=== PATIENT | male | born 1935 | race Caucasian/White ===

== ENCOUNTER 2017-04-26 16:10 | Inpatient (IN) | payer MEDICARE ==
[~2017-04-26] VITALS: Ht 182.9 cm; Wt 66.7 kg
[2017-04-26] VITALS (13 sets, daily range): BP systolic 81–183; BP diastolic 51–85
[2017-04-26] MEDS ORDERED: ETOMIDATE 2 MG/ML VIAL IV ONE (16:12)
[2017-04-26] MEDS ORDERED: ROCURONIUM BROMIDE 50 MG/5 ML IV ONE (16:12)
--- NOTE | 2017-04-26 16:20 | NUR ---
INUBATED BY MD FRASER- 7F 23 AT THE LIP
--- NOTE | 2017-04-26 16:42 | NUR ---
[facility] PATIENT RECEIVED ALTERED, BREATHING SUPPORTED BY AMBU BAG. SKIN IS WARM TO TOUCH, NON DIAPHORETIC.MD FRASER MADE AWARE
--- NOTE | 2017-04-26 16:53 | NUR ---
VENT-- AC 18 TV 500 FIO2 100 PEEP 5
--- NOTE | 2017-04-26 16:53 | NUR ---
(16 ) FR brooks catheter inserted per sterile protocal. Immediate output (200 )ML of urine, color (YELLOW ), clarity (CLEAR )
--- NOTE | 2017-04-26 16:53 | NUR ---
( 16) FR NG tube inserted through the ( L) nares correct positioning varified by aspiration, auscultation and x-ray. pt breathing normally and speaking in full sentences immediately after insertion.
[2017-04-26 17:41] LABS: HEMATOCRIT 29 % (39-51); HEMOGLOBIN 9.9 g/dL (13.5-17.5); MEAN CORPUSCULAR HEMOGLOBIN 30 PG (26.0-33.0); MEAN CORPUSCULAR HGB CONC 34 g/dl (31.0-36.0); MEAN CORPUSCULAR VOLUME 89 fL (80-96); RDW COEFFICIENT OF VARIATION 16.1 (11.5-15.0); WHITE BLOOD COUNT (AUTO) 8.7 K/uL (4.3-11.0)
[2017-04-26 17:42] LABS: BASOPHILS # (AUTO) 0.1 /CMM (0.0-0.2); BASOPHILS % (AUTO) 0.7 % (0.0-2.0); EOSINOPHILS # (AUTO) 0.1 /CMM (0.0-0.7); EOSINOPHILS % (AUTO) 1.5 % (0.0-6.0); LYMPHOCYTES # (AUTO) 1.2 /CMM (0.8-4.8); LYMPHOCYTES % (AUTO) 13.4 % (20.0-44.0); MONOCYTES # (AUTO) 0.5 /CMM (0.1-1.30); MONOCYTES % (AUTO) 5.5 % (2.0-12.0); NEUTROPHILS # (AUTO) 6.8 /CMM (1.8-8.9); NEUTROPHILS % (AUTO) 78.9 % (43.0-81.0); PLATELET COUNT (AUTO) 179 /CMM (150-450)
[2017-04-26 17:51] LABS: ABG BASE EXCESS 0.1 mmol/L; ABG OXYGEN SATURATION 98.7 % (92.0-98.5); ABG PCO2 33.7 mmHg (35.0-45.0); ABG PH 7.463 (7.350-7.450); AaDO2 128.3 mmHg; COHb 0.3 % (0.5-1.5); MetHb 0.5 % (0.0-1.5); O2Hb 97.9 % (94.0-97.0); PEEP,BG 0 cm H2O; SITE, ABG Left Radial; VT, ABG 500 mL
[2017-04-26 17:57] LABS: INR 1.34 (0.87-1.13); PROTHROMBIN TIME 14.1 SECS (9.5-12.7)
[2017-04-26] MEDS ORDERED: IV NS 0.9% 1,000 ML BAG IV ONE ×2 (18:00→19:00)
[2017-04-26 18:09] LABS: TROPONIN I 0.093 ng/mL (0.00-0.056)
--- NOTE | 2017-04-26 18:19 | NUR ---
ICU 262
[2017-04-26 18:23] LABS: CARBON DIOXIDE 25 mmol/L (21-32); CHLORIDE 114 mmol/L (98-107); CREATININE 2.8 mg/dL (0.6-1.3); GLUCOSE 137 mg/dL (74-106); POTASSIUM 3.9 mmol/L (3.5-5.1); SODIUM SERUM 153 mmol/L (136-145); UREA NITROGEN, BLOOD 65 mg/dL (7-18)
[2017-04-26 18:35] LABS: ALANINE AMINOTRANSFERASE 16 U/L (12-78); ALBUMIN 2.7 g/dL (3.4-5.0); ALKALINE PHOSPHATASE 66 U/L (46-116); ASPARTATE AMINOTRANSFERASE 23 U/L (15-37); BILIRUBIN,DIRECT 0.1 mg/dL (0.0-0.2); BILIRUBIN,TOTAL 0.6 mg/dL (0.2-1.0)
--- NOTE | 2017-04-26 18:50 | NUR ---
PANEL ON-CALL PAGED
[2017-04-26] MEDS ORDERED: PIPERACILLIN /TAZOBACTAM 3.375 G in IV D5W 50 ML IV ONE (19:00)
[2017-04-26] MEDS ORDERED: VANCOMYCIN 1 GM in IV D5W 250 ML IV ONE (19:00)
[2017-04-26] MEDS ORDERED: PROPOFOL 100 ML IV PRN (19:00)
--- NOTE | 2017-04-26 19:00 | NUR ---
PAGED SANDRA CUELLAR DNP FOR PANEL ADMISSION
--- NOTE | 2017-04-26 19:03 | NUR ---
SHEA AT BEDSIDE FOR PICC INSERTION
--- NOTE | 2017-04-26 19:13 | NUR ---
PT NOW GETTING PICC LINE, ER WILL CALL WHEN READY FOR CT SCAN.
--- NOTE | 2017-04-26 19:22 | NUR ---
REPAGED SANDRA CUELLAR DNP FOR PANEL ADMISSION
--- NOTE | 2017-04-26 19:32 | NUR ---
SHEA STILL INSETING CASS
--- NOTE | 2017-04-26 19:46 | NUR ---
REPAGED SANDRA CUELLAR DNP FOR PANEL ADMISSION
--- NOTE | 2017-04-26 20:34 | NUR ---
REPORT GIVEN SHANTE VALERIO FOR CONTINUITY OF CARE.
[2017-04-26] MEDS ORDERED: ASPIRIN 300 MG/SUPP.RECT RC ONE (20:51)
[2017-04-26] MEDS: ASPIRIN 300 MG/SUPP.RECT RC SCH (20:55)
--- NOTE | 2017-04-26 21:09 | NUR ---
PATIENT WAS TRASNPORTED TO ICU. ALL DUE MEDICATIONS GIVEN. SEPSIS RE ASSESSMENT DONE. PICCLINE TRIPLE LUMEN INTACT ON ANGELO. ALL IV ACCESS INTACT. PT REMAINS INTUBATED. VSS
--- NOTE | 2017-04-26 21:30 | NUR ---
HAND CANDLE MOLDER INITIAL NOTE RECEIVED REPORT FROM HUE VALERIO FROM ER. PT TRANSPORTED TO UNIT BY SAVANNA VALERIO. PT IN BED. INTUBATED. PROPOFOL ON STAND BY. RESTRAINED FOR SAFETY, BILATERAL SOFT WRIST RESTRAINTS. LUNG SOUNDS CLEAR. BOWEL SOUNDS PRESENT. MCGUIRE INTACT AND DRAINING CLEAR YELLOW URINE. PICTURES TAKEN OF SKIN ISSUES AND DOCUMENTED. RIGHT UPPER ARM PICC PATENT AND INTACT, PROPOFOL STARTED DUE TO PATIENT BECOMING RESTLESS. RIGHT FA IV INTACT. LEFT AC IV INTACT. BED IN LOW LOCKED POSITION. PATIENT REPOSITIONED FOR COMFORT. WILL CONTINUE TO MONITOR.
[2017-04-26] MEDS: PROPOFOL 100 ML IV PRN (22:08)
--- NOTE | 2017-04-26 23:54 | NUR ---
PT RCVD ON MECH VENT WITH NOTED SETTINGS AND ORALLY INTUBATED WITH 7.5 ETT SECURE AT 23 CM @ THE LIP LINE . SUCTION MODERATE AMOUNT OF WHITE THICK SECRETIONS. VENT ALARM CHECKED AND AUDIBLE . VENT PLUGGED INTO RED OUTLET, AMBU BAG AT BEDSIDE. WILL CONTINUE TO MONITOR THE PATIENT.
[2017-04-27] VITALS (115 sets, daily range): BP systolic 58–196; BP diastolic 39–89
[2017-04-27] MEDS ORDERED: MORPHINE SULFATE INJ 2 MG/ML DISP.SYRIN IV PRN (01:00)
[2017-04-27] MEDS ORDERED: ENOXAPARIN SODIUM 40 MG/0.4 ML DISP.SYRIN SQ SCH ×2 (01:00→21:00)
[2017-04-27] MEDS ORDERED: ONDANSETRON HCL/PF 4 MG/2 ML VIAL IVP PRN (01:00)
[2017-04-27] MEDS: IV 1/2NS 1000 ML 1,000 ML IV PRN ×2 (01:05→12:39)
[2017-04-27] MEDS ORDERED: ENOXAPARIN SODIUM 40 MG/0.4 ML DISP.SYRIN SQ ONE (01:13)
--- NOTE | 2017-04-27 03:20 | NUR ---
BITUMINOUS DISTRIBUTOR OPERATOR DR CUELLAR ENTERED AN ABG FOR 0500, ORDER WAS CLARIFIED. ABG TO BE DONE AT 0800. WILL ENDORSE TO NEXT SHIFT TO CARRY OUT ORDER.
[2017-04-27] MEDS ORDERED: PROPOFOL 100 ML IV ONE (05:28)
[2017-04-27] MEDS: PROPOFOL 100 ML IV PRN ×3 (06:07→18:38)
--- NOTE | 2017-04-27 07:39 | NUR ---
INITIAL COMMERCIAL SALES SPECIALIST NOTE RCVD PT SEDATED, INTUBATED, ETT 7.5 25 AT LIP LINE SHOWING NO S/O DISTRESS/PAIN. TOLERATING ORDERED VENT SETTINGS WELL. LEFT NG TUBE CLAMPED, PLACEMENT VERIFIED BY AUSCULTATION/ASPIRATION. NO RESIDUAL OBTAINED. MCGUIRE DRAINING YELLOW URINE. BILATERAL WRISTS RESTRAINST IN PLACE. CIRCULATION CHECKS PERFORMED. IV SITES C/D/I/PATENT. NO S/O INFILTRATION/PHLEBITIS OBSERVED UPON FLUSHING. IVF INFUSING. WILL CONTINUE TO MONITOR PT FOR SAFETY AND COMFORT. CALL LIGHT WITHIN REACH. BED IN LOW AND LOCKED POSITION.
[2017-04-27] MEDS: PANTOPRAZOLE 40 MG VIAL IV SCH (09:13)
[2017-04-27 09:14] LABS: ABG BASE EXCESS -0.3 mmol/L; ABG OXYGEN SATURATION 98.1 % (92.0-98.5); ABG PCO2 33.3 mmHg (35.0-45.0); AaDO2 75.9 mmHg; COHb 0.3 % (0.5-1.5); MetHb 0.7 % (0.0-1.5); O2Hb 97.1 % (94.0-97.0); PEEP,BG 0 cm H2O; SITE, ABG Right Radial; VT, ABG 500 mL
[2017-04-27] MEDS: Z GUARD REMEDY 2 OZ OINT TP PRN (09:14)
[2017-04-27] MEDS: ASPIRIN 300 MG/SUPP.RECT RC SCH (09:14)
--- NOTE | 2017-04-27 10:18 | NUR ---
LENS GRINDER NOTE SEDATION VACATION IMPLEMENTED. PT ABLE TO FOLLOW SOME COMMANDS. PT'S BP ELEVATED WILL CONTINUE TO MONITOR.
[2017-04-27] MEDS: MORPHINE SULFATE INJ 4 MG/ML DISP.SYRIN IV PRN (11:08)
[2017-04-27] MEDS: IPRATROPIUM NEB FS 0.5 MG/2.5 ML AMPUL.NEB NEB SCH ×4 (11:14→23:32)
--- NOTE | 2017-04-27 12:20 | NUR ---
BEADER TENDER NOTE PT'S BP TRENDING DOWN, MORPHINE GIVEN FOR PAIN.
--- NOTE | 2017-04-27 13:21 | NUR ---
POULTRY PROCESSOR NOTE RCVD CALL FROM RADIOLOGIST STATING THAT PT HAS PARTIAL THROMBUS ON LLE. PT'S SBP TRENDING DOWN 80s DR. WARE INFORMED OF ABOVE. AWAITING ORDERS.
--- NOTE | 2017-04-27 15:30 | NUR ---
MITERING MACHINE OPERATOR NOTE PT CONVERTED TO SR. WILL CONTINUE TO MONITOR.
--- NOTE | 2017-04-27 17:05 | NUR ---
CROCHETER NOTE PT'S AT BEDSIDE, UPDATED ON PT'S CONDITION.
--- NOTE | 2017-04-27 18:08 | NUR ---
RT NOTE: Received patient orally intubated with 7.5 ETT secured at 23 cm inner lip line on mechanical vent. Alarms verified and audible. Suctioned and lavaged small of clear secretions. Bilateral BS noted. Vent plugged into red outlet. Ambu bag at [facility].
--- NOTE | 2017-04-27 18:58 | NUR ---
ENDING LATIN AMERICAN STUDIES PROFESSOR NOTE PT REMAINS STABLE, SHOWING NO S/O DISTRESS. TOLERATING VENT SETTINGS SR ON TELE. MCGUIRE DRAINING YELLOW URINE. NG TUBE CLAMPED. IV SITES C/D/I/PATENT. NO S/O INFILTRATION/PHLEBITIS OBSERVED. IVF INFUSING. PT'S CARE WILL BE ENDORSED TO AUTOMOTIVE FUEL INJECTION SERVICER RN FOR CONTINUITY OF CARE. BED IN LOW AND LOCKED POSITION.
--- NOTE | 2017-04-27 19:30 | NUR ---
TELEGRAPH OFFICE ROUTE AIDE INITIAL NOTE RECEIVED REPORT FROM MOLLY VALERIO. PT IN BED, INTUBATED AND SEDATED. PT LUNG SOUNDS DIMINISHED, ON VENTILATOR TOLERATING CURRENT VENT SETTINGS. BOWEL SOUNDS PRESENT. MCGUIRE INTACT AND DRAINING YELLOW URINE. REPOSITIONED FOR COMFORT. IV PATENT AND INTACT. REPOSITIONED FOR COMFORT. BED IN LOW LOCKED POSITION. WILL CONTINUE TO MONITOR.
[2017-04-28] VITALS (57 sets, daily range): BP systolic 112–195; BP diastolic 55–113
[2017-04-28] MEDS: PROPOFOL 100 ML IV PRN ×4 (00:55→22:04)
[2017-04-28] MEDS: IV 1/2NS 1000 ML 1,000 ML IV PRN ×2 (00:59→13:57)
[2017-04-28] MEDS: IPRATROPIUM NEB FS 0.5 MG/2.5 ML AMPUL.NEB NEB SCH ×6 (03:10→22:47)
[2017-04-28 05:01] LABS: BASOPHILS % (AUTO) 0.3 % (0.0-2.0); EOSINOPHILS # (AUTO) 0.3 /CMM (0.0-0.7); EOSINOPHILS % (AUTO) 2.8 % (0.0-6.0); HEMATOCRIT 28 % (39-51); HEMOGLOBIN 9.3 g/dL (13.5-17.5); LYMPHOCYTES # (AUTO) 1.1 /CMM (0.8-4.8); LYMPHOCYTES % (AUTO) 9.7 % (20.0-44.0); MEAN CORPUSCULAR HEMOGLOBIN 30 PG (26.0-33.0); MEAN CORPUSCULAR HGB CONC 33 g/dl (31.0-36.0); MEAN CORPUSCULAR VOLUME 89 fL (80-96); MONOCYTES % (AUTO) 8.9 % (2.0-12.0); NEUTROPHILS # (AUTO) 9.1 /CMM (1.8-8.9); NEUTROPHILS % (AUTO) 78.3 % (43.0-81.0); PLATELET COUNT (AUTO) 174 /CMM (150-450); RDW COEFFICIENT OF VARIATION 17.1 (11.5-15.0); RED BLOOD CELL COUNT(AUTO) 3.13 MIL/uL (4.5-6.0); WHITE BLOOD COUNT (AUTO) 11.7 K/uL (4.3-11.0)
[2017-04-28 05:09] LABS: ALANINE AMINOTRANSFERASE 14 U/L (12-78); ALBUMIN 2.5 g/dL (3.4-5.0); ALKALINE PHOSPHATASE 63 U/L (46-116); ASPARTATE AMINOTRANSFERASE 25 U/L (15-37); CALCIUM, SERUM 8.8 mg/dL (8.5-10.1); CARBON DIOXIDE 25 mmol/L (21-32); CHLORIDE 116 mmol/L (98-107); CREATININE 2.2 mg/dL (0.6-1.3); GLUCOSE 65 mg/dL (74-106); MAGNESIUM 1.9 mg/dL (1.8-2.4); PHOSPHORUS 3.3 mg/dL (2.5-4.9); POTASSIUM 3.3 mmol/L (3.5-5.1); SODIUM SERUM 152 mmol/L (136-145); TOTAL PROTEIN, SERUM 5.7 g/dL (6.4-8.2); UREA NITROGEN, BLOOD 52 mg/dL (7-18)
[2017-04-28 05:27] LABS: BILIRUBIN,TOTAL 0.4 mg/dL (0.2-1.0)
[2017-04-28 05:34] LABS: CHOLESTEROL 134 mg/dL (<200); HDL CHOLESTEROL 38 mg/dL (40-60); LDL 80 mg/dL (0-99); THYROID STIMULATING HORMONE 1.068 uIU/mL (0.358-3.74); TRIGLYCERIDES 82 mg/dL (30-150)
[2017-04-28] MEDS: RENAL NOVASOURCE 1,000 ML BOTTLE GT PRN (06:28)
--- NOTE | 2017-04-28 07:15 | NUR ---
EQUIPMENT VALIDATION SPECIALIST NOTES RECEIVED PATIENT SEDATED , NOT IN ACUTE DISTRESS , RESPIRATION EVEN AND UNLABORED WITH SPO2 OF 100% VIA MECHANICAL VENTILATOR SETTING ORDERED , ETT 7.[address] , SR WITH BBB 78 WITH OCCASIONAL SPIKING OF AICD , FC DRAINING WELL VIA GRAVITY WITH CLEAR YELLOW URINE , ON KCI MATTRESS , L NARE NGT PATENT AND INTACT WITH NGT FEEDING OF NOVASOURCE @ 20ML/HR WITH NO RESIDUALS NOTED TITRATE ACCORDINGLY , IV OF L AC # 20 AND ANGELO PICC LINE PATENT AND INTACT WITH 1/2 NS @ 75ML/HR , DIPRIVAN @ 30MCG/MIN , ALL NEEDS ATTENDED , BED ON LOW AND LOCKED POSITION , SIDE RAILS X2 , CALL LIGHT WITHIN REACH , HOB @ 45 , WILL CONTINUE TO MONITOR
[2017-04-28] MEDS: POTASSIUM CL. PREMIX PERIPHER. 50 ML IV SCH ×2 (08:22→09:16)
[2017-04-28] MEDS: Z GUARD REMEDY 2 OZ OINT TP PRN (08:22)
[2017-04-28] MEDS: PANTOPRAZOLE 40 MG VIAL IV SCH (08:22)
[2017-04-28] MEDS: ASPIRIN 300 MG/SUPP.RECT RC SCH (08:22)
--- NOTE | 2017-04-28 09:00 | NUR ---
CRACKING AND FANNING MACHINE OPERATOR NOTES OFF MELIZAVAN FOR SEDATION VACATION , WILL CONTINUE TO MONITOR
--- NOTE | 2017-04-28 09:15 | NUR ---
PASTORAL COUNSELOR NOTES ADVANCE NGT RECOMMENDED BY RADIOLOGIST AND CHEST XRAY REPORT , NGT PLACEMENT VERIFIED NOTED IWTH GURGLING SOUND X 4 QUADRANT OF THE STOMACH , WILL CONTINUE TO MONITOR
[2017-04-28] MEDS: NITROGLYCERIN 30 GM TUBE TP SCH ×2 (09:18→22:06)
--- NOTE | 2017-04-28 09:30 | NUR ---
ESCORT PATIENTS NOTES DIPRIVAN RESTARTED @ 30MCG/MIN DUE TO BP OF 179/83 , HR OF 120-130'S , RESPONSIVE TO VERBAL STIMULI , OPENS EYES , FOLLOWS SIMPLE COMMANDS , WILL CONTINUE TO MONITOR .
[2017-04-28 09:44] LABS: ABG OXYGEN SATURATION 98.6 % (92.0-98.5); ABG PCO2 29.5 mmHg (35.0-45.0); ABG PH 7.452 (7.350-7.450); ABG PO2 265.2 mmHg (75.0-100.0); COHb 0.3 % (0.5-1.5); MetHb 0.6 % (0.0-1.5); O2Hb 97.7 % (94.0-97.0); SITE, ABG Right Radial; VENT MODE, BG AC 16 500 40% +0
--- NOTE | 2017-04-28 11:28 | NUR ---
CENTRAL AISLE CASHIER NOTES SPOKE WITH DR MONTALVO , NOTIFIED PT ABG , CHEST XRAY, CURRENT VENT SETTINGS , VERIFIED IF HE WANTS TO INCREASE PEEP FROM 0 -5 BP IS ON 150-160'S PT ON NITRO PASTE ALREADY , PER MD CHANGE PEEP TO 5 , ORDERS CARRIED OUT SEDATION VACATION STARTED @ 0900 PT PLACED BACK ON DIPRIVAN DUE TO ELEVATED BP AND HR , PT OPENS EYES , ABLE TO FOLLOWS SIMPLE COMMANDS ,
--- NOTE | 2017-04-28 12:28 | NUR ---
CORPORATE ADMINISTRATIVE ASSISTANT NOTES MEDICATION RECON REVIEWED , NO MEDICATION AVAILABLE , CALLED [facility] , SPOKE WITH RN , FOLLOW UP IF THEY CAN FAX HOME MEDICATION OF THE PT ,
[2017-04-28] MEDS ORDERED: HYDR-4077 PO (12:40)
[2017-04-28] MEDS ORDERED: TEMA7.5C PO (12:40)
[2017-04-28] MEDS ORDERED: BISA10SU8 RC (12:40)
[2017-04-28] MEDS ORDERED: ACET-868 PO (12:40)
[2017-04-28] MEDS ORDERED: PANT40TA2 PO (12:40)
[2017-04-28] MEDS ORDERED: MAGN400O6 PO (12:40)
[2017-04-28] MEDS ORDERED: LORA1TAB PO (12:40)
[2017-04-28] MEDS ORDERED: AMLO5TAB4 PO (12:40)
[2017-04-28] MEDS ORDERED: CLON0.1T PO (12:40)
[2017-04-28] MEDS ORDERED: DABI75CA3 PO (12:40)
[2017-04-28] MEDS ORDERED: FERR-58 PO (12:40)
[2017-04-28] MEDS ORDERED: CARV12.5 PO (12:40)
[2017-04-28] MEDS ORDERED: FLUT16SP16 NS (12:40)
[2017-04-28] MEDS ORDERED: RISP0.253 PO (12:40)
[2017-04-28] MEDS ORDERED: NA P133E RC (12:40)
[2017-04-28] MEDS ORDERED: VALP250C PO (12:40)
[2017-04-28] MEDS ORDERED: MONT10TA22 PO (12:40)
[2017-04-28] MEDS ORDERED: ALBU2.5V13 IH (12:40)
[2017-04-28] MEDS ORDERED: IPRA0.2S9 IH (12:40)
[2017-04-28] MEDS ORDERED: DOCU-25 PO (12:40)
[2017-04-28] MEDS ORDERED: ATOR10TA PO (12:40)
[2017-04-28] MEDS ORDERED: VENL150C2 PO (12:40)
[2017-04-28] MEDS ORDERED: ALLO100T PO (12:41)
[2017-04-28] MEDS ORDERED: CHOL100044 PO (12:41)
[2017-04-28] MEDS ORDERED: ASCO500T9 PO (12:41)
--- NOTE | 2017-04-28 13:03 | NUR ---
MANAGER PERSONNEL SELECTION NOTES NOTIFIED DR WARE THAT HOME MEDICATION LIST FROM [place] WAS OBTAINED . MED RECON NURSE UPDATED MEDICATION RECONCILIATION LIST ,
[2017-04-28] MEDS ORDERED: ENOXAPARIN SODIUM 80 MG/0.8 ML DISP.SYRIN SQ SCH (16:01)
--- NOTE | 2017-04-28 18:13 | NUR ---
CALIBRATOR BAROMETERS NOTES SEEN AND EVALUATED BY DR IBARRA , DISCUSSED LABS , US DVT RESULT , PT ON LOVENOX 30MG Q24 AND 70MG Q12 , MD AWARE , VERIFIED WITH MD IF SHE WANTS DVT PUMPS , DVT PUMPS WERE HELD , PER MD BANKS IT
--- NOTE | 2017-04-28 19:40 | NUR ---
ICU/PASTEURISER OPERATOR REPORT RECEIVED FROM DAY NURSE, PT IS ORALLY INTUBATED WITH SEDATION 30MCG DIPRIVAN, ALONG WITH BILATERAL RESTRAINS. PT IS TOLERATING CURRENT VENT SETTINGS WITH SATURATION AT 100%. PT HAS PACEMAKER WHICH IS CAPTURING AND SPIKING AT 80'S. PT HAS A N/G TUBE WITH NOVASOURCE AT 40ML/HR TOLERATING THIS WELL, RESIDUALS ARE 10 ML. PT HAS MCGUIRE CATH DRAINING YELLOW URINE. THERE ARE SKIN ISSUES THAT ARE ADDRESSED ON THE FLOW SHEET. PT WAS TURNED AND REPOSITIONED FOR COMFORT AND CARE. WILL CONTINUE TO MONITOR THIS PT.
--- NOTE | 2017-04-28 22:10 | NUR ---
ICU/BLEACHER LARD PT'S CALLED ASKED ABOUT ANY CHANGES, GAVE HER UPDATE. SAID TOMORROW AND SHE'LL BE IN TO SEE HER .
[2017-04-29] VITALS (41 sets, daily range): BP systolic 83–169; BP diastolic 47–91
--- NOTE | 2017-04-29 02:10 | NUR ---
ICU/HEEL VARNISHER PT WAS GIVEN AM CARE ALONG WITH ORAL CARE. PT TOLERATED THIS WELL, SATURATION REMAINS AT 100% ON CURRENT VENT SETTINGS. PT WAS TURNED AND REPOSITIONED FOR COMFORT AND CARE. WILL CONTINUE TO MONITOR THIS PT.
[2017-04-29] MEDS: IV 1/2NS 1000 ML 1,000 ML IV PRN ×2 (02:16→21:16)
[2017-04-29] MEDS: IPRATROPIUM NEB FS 0.5 MG/2.5 ML AMPUL.NEB NEB SCH ×6 (03:00→23:54)
--- NOTE | 2017-04-29 04:40 | NUR ---
ICU/OVAL OR CIRCULAR GLASS CUTTER AM LABS WERE DRAWN WITH A FEW SEND OUT'S TO OTHER LABS THAT WERE DRAWN AT THIS TIME, AWAIT FOR RESULTS. PT WAS THEN TURNED AND REPOSITIONED FOR COMFORT AND CARE.
[2017-04-29 04:44] LABS: EOSINOPHILS # (AUTO) 0.2 /CMM (0.0-0.7); HEMATOCRIT 29 % (39-51); HEMOGLOBIN 9.7 g/dL (13.5-17.5); LYMPHOCYTES # (AUTO) 0.9 /CMM (0.8-4.8); LYMPHOCYTES % (AUTO) 5.6 % (20.0-44.0); MEAN CORPUSCULAR HEMOGLOBIN 30 PG (26.0-33.0); MEAN CORPUSCULAR HGB CONC 34 g/dl (31.0-36.0); MEAN CORPUSCULAR VOLUME 89 fL (80-96); MONOCYTES # (AUTO) 1.1 /CMM (0.1-1.30); MONOCYTES % (AUTO) 7.4 % (2.0-12.0); NEUTROPHILS # (AUTO) 13.3 /CMM (1.8-8.9); PLATELET COUNT (AUTO) 183 /CMM (150-450); RDW COEFFICIENT OF VARIATION 17.7 (11.5-15.0); RED BLOOD CELL COUNT(AUTO) 3.23 MIL/uL (4.5-6.0); WHITE BLOOD COUNT (AUTO) 15.5 K/uL (4.3-11.0)
[2017-04-29 05:00] LABS: CALCIUM, SERUM 8.8 mg/dL (8.5-10.1); CARBON DIOXIDE 25 mmol/L (21-32); CHLORIDE 114 mmol/L (98-107); CREATININE 1.9 mg/dL (0.6-1.3); GLUCOSE 127 mg/dL (74-106); MAGNESIUM 1.9 mg/dL (1.8-2.4); PHOSPHORUS 2.8 mg/dL (2.5-4.9); POTASSIUM 3.2 mmol/L (3.5-5.1); SODIUM SERUM 150 mmol/L (136-145); UREA NITROGEN, BLOOD 49 mg/dL (7-18)
[2017-04-29 05:46] LABS: THYROID STIMULATING HORMONE 0.823 uIU/mL (0.358-3.74)
[2017-04-29] MEDS: PROPOFOL 100 ML IV PRN ×2 (06:14→18:37)
--- NOTE | 2017-04-29 07:05 | NUR ---
ICU/PERSONAL CARE AID REPORT WAS GIVEN TO DAY NURSE, PT IS TO HAVE A WINGING TRAIL ON VENT A/C MODE TO [facility] DAY NURSE AWARE OF THIS.
[2017-04-29] MEDS: POTASSIUM CL. PREMIX PERIPHER. 50 ML IV SCH ×4 (07:47→10:51)
[2017-04-29 08:08] LABS: ABG BASE EXCESS -3.1 mmol/L; ABG OXYGEN SATURATION 97.3 % (92.0-98.5); ABG PCO2 34.5 mmHg (35.0-45.0); ABG PH 7.405 (7.350-7.450); ABG PO2 115.4 mmHg (75.0-100.0); AaDO2 130.1 mmHg; COHb 0.3 % (0.5-1.5); MetHb 0.5 % (0.0-1.5); O2Hb 96.5 % (94.0-97.0); PEEP,BG 5 cm H2O; SITE, ABG Right Radial; VENT MODE, BG AC 16 500 40% +5; VT, ABG 500 mL
[2017-04-29] MEDS: ENOXAPARIN SODIUM 80 MG/0.8 ML DISP.SYRIN SQ SCH (09:20)
[2017-04-29] MEDS: ASPIRIN 300 MG/SUPP.RECT RC SCH (09:20)
[2017-04-29] MEDS: NITROGLYCERIN 30 GM TUBE TP SCH ×2 (09:21→21:04)
[2017-04-29] MEDS: PANTOPRAZOLE 40 MG VIAL IV SCH (09:21)
--- NOTE | 2017-04-29 10:01 | NUR ---
RT NOTE PT PLACED ON SIMV PER MD ORDER. RR 4, PSV 12, PEEP 5. ALARMS SET PER PROTOCOL AND AUDIBLE. VENT PLUGGED IN TO RED OUTLET. AMBU BAG AT BED SIDE. NO DISTRESS NOTED. WILL CONTINUE TO MONITOR. Addendum: 04/29/17 at 1003 by MARY JO CHAN RT Amended: Links added.
--- NOTE | 2017-04-29 10:15 | NUR ---
Assumed care of this intubated patient currently on weaning trial. Off propofol and on SIMV. Report taken from Marzena VALERIO
--- NOTE | 2017-04-29 11:03 | NUR ---
ornamental metalwork designer reported given to IMAN [employer] weaning on going, patient is lethargic
[2017-04-29] MEDS: SOD FERRIC GLUC 125 MG in IV NS 0.9% 100 ML IV SCH (15:02)
[2017-04-29] MEDS: ACETAMINOPHEN 650 MG/20.3 ML UDC NG PRN (18:21)
[2017-04-29] MEDS: RENAL NOVASOURCE 1,000 ML BOTTLE GT PRN (18:21)
--- NOTE | 2017-04-29 18:39 | NUR ---
RT NOTE PT PLACED BACK ON AC MODE PER MD ORDER. ALARMS SET PER PROTOCOL AND AUDIBLE. VENT PLUGGED IN TO RED OUTLET. NO DISTRESS NOTED. WILL CONTINUE TO MONITOR. Addendum: 04/29/17 at 1840 by MARY JO CHAN RT Amended: Links added.
[2017-04-29] MEDS: ZOSYN IVPB 3.375 G in IV D5W 50ml IV SCH (19:12)
--- NOTE | 2017-04-29 19:45 | NUR ---
ICU/SALES REPRESENTATIVE UNIFORMS REPORT RECEIVED FROM DAY NURSE, PT IS ORALLY INTUBATED WITH SEDATION 30MCG DIPRIVAN, ALONG WITH BILATERAL RESTRAINS. PT IS TOLERATING CURRENT VENT SETTINGS WITH SATURATION AT 100%. PT HAS PACEMAKER WHICH IS CAPTURING AND SPIKING AT 70'S. PT HAS A N/G TUBE WITH NOVASOURCE AT 40ML/HR TOLERATING THIS WELL, RESIDUALS ARE 5-10 ML. PT HAS MCGUIRE CATH DRAINING YELLOW URINE. THERE ARE SKIN ISSUES THAT ARE ADDRESSED ON THE FLOW SHEET. PT WAS TURNED AND REPOSITIONED FOR COMFORT AND CARE. WILL CONTINUE TO MONITOR THIS PT.
--- NOTE | 2017-04-29 21:35 | NUR ---
PT RECEIVED ORALLY INTUBATED WITH 7.5 ETT SECURED AT 23CM AT THE LIP. NO RESP DISTRESS. PT TOLERATING VENT SETTINGS. SX'D FOR SML AMT OF THICK YELLOW SECRETIONS. VENT ALARMS SET AND AUDIBLE. AMBU BAG AT BEDSIDE. VENT PLUGGED INTO RED OUTLET. WILL CONTINUE TO MONITOR. Addendum: 04/29/17 at 2137 by FELIPE MAN RT Amended: Links added.
--- NOTE | 2017-04-29 23:05 | NUR ---
ICU/PRODUCTION LINE ASSEMBLER RESPIRATORY THERAPIST AT BEDSIDE GIVING BREATHING TREATMENT, PT TOLERATED THIS WELL. SATURATION IS AT 95%. PT HAS POCKETS OF THICK SECRETIONS. PT TOLERATING CURRENT VENT SETTINGS WILL CONTINUE TO MONITOR PT'S SATURATIONS.
[2017-04-30] VITALS (78 sets, daily range): BP systolic 65–150; BP diastolic 35–79
[2017-04-30] MEDS: ZOSYN IVPB 3.375 G in IV D5W 50ml IV SCH ×5 (00:09→23:19)
[2017-04-30] MEDS: PROPOFOL 100 ML IV PRN ×3 (00:10→20:03)
--- NOTE | 2017-04-30 02:43 | NUR ---
ICU/ROOM SERVICE WAITER/WAITRESS PT WAS GIVEN AM CARE ALONG WITH ORAL CARE. PT TOLERATED THIS WELL REMAINS ON CURRENT VENT SETTINGS. SATURATION IS 100%. PT WAS TURNED AND REPOSITIONED FOR COMFORT AND CARE. WILL CONTINUE TO MONITOR THIS PT.
[2017-04-30] MEDS: IPRATROPIUM NEB FS 0.5 MG/2.5 ML AMPUL.NEB NEB SCH ×6 (03:04→23:13)
--- NOTE | 2017-04-30 04:55 | NUR ---
ICU/POWER SYSTEM ELECTRICAL ENGINEER AM LABS AND CHEST X-RAY DONE AWAIT RESULTS.
[2017-04-30 05:06] LABS: EOSINOPHILS # (AUTO) 0.1 /CMM (0.0-0.7); EOSINOPHILS % (AUTO) 1.1 % (0.0-6.0); HEMATOCRIT 29 % (39-51); HEMOGLOBIN 9.7 g/dL (13.5-17.5); LYMPHOCYTES # (AUTO) 0.6 /CMM (0.8-4.8); LYMPHOCYTES % (AUTO) 4.4 % (20.0-44.0); MEAN CORPUSCULAR HEMOGLOBIN 30 PG (26.0-33.0); MEAN CORPUSCULAR HGB CONC 34 g/dl (31.0-36.0); MEAN CORPUSCULAR VOLUME 88 fL (80-96); MONOCYTES # (AUTO) 0.5 /CMM (0.1-1.30); MONOCYTES % (AUTO) 3.7 % (2.0-12.0); NEUTROPHILS # (AUTO) 11.8 /CMM (1.8-8.9); NEUTROPHILS % (AUTO) 90.8 % (43.0-81.0); PLATELET COUNT (AUTO) 171 /CMM (150-450); RDW COEFFICIENT OF VARIATION 17.6 (11.5-15.0); RED BLOOD CELL COUNT(AUTO) 3.23 MIL/uL (4.5-6.0)
[2017-04-30 05:27] LABS: ALANINE AMINOTRANSFERASE 14 U/L (12-78); ALBUMIN 2.2 g/dL (3.4-5.0); ALKALINE PHOSPHATASE 63 U/L (46-116); ASPARTATE AMINOTRANSFERASE 19 U/L (15-37); BILIRUBIN,TOTAL 0.4 mg/dL (0.2-1.0); CALCIUM, SERUM 8.7 mg/dL (8.5-10.1); CARBON DIOXIDE 25 mmol/L (21-32); CHLORIDE 113 mmol/L (98-107); GLUCOSE 91 mg/dL (74-106); PHOSPHORUS 2.3 mg/dL (2.5-4.9); POTASSIUM 3.5 mmol/L (3.5-5.1); SODIUM SERUM 148 mmol/L (136-145); UREA NITROGEN, BLOOD 51 mg/dL (7-18)
[2017-04-30 05:29] LABS: D-DIMER 1.73 mg/L(FEU (0.17-0.50)
[2017-04-30 05:49] LABS: BAND % (MANUAL) 13 % (0.0-5.0); EOSINOPHILS % (MANUAL) 1 % (0-4); LYMPHOCYTES % (MANUAL) 6 % (16-48); MONOCYTES % (MANUAL) 4 % (0-11.0); NEUTROPHILS % (MANUAL) 73 (42-76)
[2017-04-30 05:50] LABS: METAMYELOCYTES % 3 % (0-0)
[2017-04-30 06:13] LABS: INR 1.1 (0.87-1.13); PROTHROMBIN TIME 11.8 SECS (9.5-12.7)
--- NOTE | 2017-04-30 07:20 | NUR ---
PT RECEIVED ORALLY INTUBATED ON PB840 VENT W/ SETTINGS PER MD, VENT IN RED OUTLET, AMBUBAG AT BEDSIDE. ETT 7.5 @ 23CM SECURE, PATENT, W/ ANCHOFAST. BREATH SOUNDS EQUAL DIMINISHED. PT SX'ED AND LAVAGED PRN TO MODERATE AMOUNTS OF THICK PALE YELLOW SECRETIONS. RESPIRATORY CULTURE COLLECTED VIA SX AND SENT TO LAB. RN AWARE. PLAN IS CONTINUE CARE W/ CURRENT MD ORDERS AND MONITOR FOR CHANGES. Addendum: 04/30/17 at 1105 by WILFRED NOVOA RT Amended: Links added.
[2017-04-30 08:07] LABS: IMMUNOGLOBULIN A, SERUM 325 mg/dL (61-437); IMMUNOGLOBULIN G, SERUM 719 mg/dL (700-1600); IMMUNOGLOBULIN M, SERUM 34 mg/dL (15-143)
[2017-04-30] MEDS: ASPIRIN 300 MG/SUPP.RECT RC SCH (08:15)
[2017-04-30] MEDS: NITROGLYCERIN 30 GM TUBE TP SCH (08:16)
[2017-04-30] MEDS: PANTOPRAZOLE 40 MG VIAL IV SCH (08:17)
[2017-04-30] MEDS: ENOXAPARIN SODIUM 80 MG/0.8 ML DISP.SYRIN SQ SCH (08:17)
[2017-04-30] MEDS: ACETAMINOPHEN 650 MG/20.3 ML UDC NG PRN ×2 (08:20→13:53)
[2017-04-30] MEDS: IV 1/2NS 1000 ML 1,000 ML IV PRN (08:21)
--- NOTE | 2017-04-30 08:30 | NUR ---
Dr. Carrasco talked with on the phone for updates.
--- NOTE | 2017-04-30 08:53 | NUR ---
Temp 101.5. Panculture ordered by Dr. Carrasco. All specimen sent.
--- NOTE | 2017-04-30 08:55 | NUR ---
Off sedation since 0800 AM, patient remain asleep, moves with painful stimuli, grimaces with pain but HR increase to 110-120's. Resumed propofol.
[2017-04-30] MEDS ORDERED: FEE PK DOSING 1 MIN EA MC ONE (09:56)
[2017-04-30] MEDS: VANCOMYCIN 1 GM in IV D5W 250 ML IV SCH (10:38)
--- NOTE | 2017-04-30 11:20 | NUR ---
Patient hypotensive with sbp of 60's-80's on multiple bp cycle. Propofol turned off, NS 500ml bolus fluids ordered.
[2017-04-30] MEDS ORDERED: IV NS 0.9% 500 ML IV ONE (11:30)
--- NOTE | 2017-04-30 12:24 | NUR ---
High gastric residual 300cc for noon. informed Dr. Henry and any q6h given ivp.
[2017-04-30] MEDS: METOCLOPRAMIDE HCL 10 MG/2 ML VIAL IV SCH ×3 (12:58→23:23)
--- NOTE | 2017-04-30 13:13 | NUR ---
Patient remain hypotensive with SBP on mid 80's (see vitals signs datascope). Will start levophed once avail, waiting for pharmacy to deliver.
[2017-04-30] MEDS: NOREPINEPHRINE 8 MG in IV D5W 500 ML IV PRN (13:49)
[2017-04-30] MEDS: SOD FERRIC GLUC 125 MG in IV NS 0.9% 100 ML IV SCH (14:17)
--- NOTE | 2017-04-30 15:21 | NUR ---
RT MED NOTE HHN TX HELD AT THIS TIME. PT HAVING PROCEDURE DONE AT BEDSIDE
[2017-04-30] MEDS ORDERED: NEUTRA PHOS 1 POWD.PACKET GT ONE (16:00)
[2017-04-30] MEDS ORDERED: PIPERACILLIN /TAZOBACTAM 3.375 G in IV D5W 50 ML IV SCH (18:30)
[2017-04-30 18:55] LABS: APPEARANCE,URINE SL CLOUDY (CLEAR); BILIRUBIN,URINE NEGATIVE (NEGATIVE); BLOOD, URINE TRACE Ery/uL (NEGATIVE); COLOR,URINE YELLOW (YELLOW); KETONES,URINE NEGATIVE (NEGATIVE); LEUKOCYTE ESTERASE ,URINE 1+ (NEGATIVE); NITRITE, URINE NEGATIVE (NEGATIVE); PROTEIN,URINE 1+ mg/dl (NEGATIVE); UGLUCOSE NEGATIVE (NEGATIVE); UROBILINOGEN,URINE 0.2 EU/dL (0.2)
[2017-04-30 19:12] LABS: BACTERIA,URINE 2+ /HPF (None Seen); SQUAMOUS EPITHELIAL CELL,UR 0-2 /HPF (None Seen)
--- NOTE | 2017-04-30 20:00 | NUR ---
RADIO TELEVISION ANNOUNCER - NOTES - REPORT RECEIVED FROM DAY NURSE, PT IS ORALLY INTUBATED WITH SEDATION 30MCG DIPRIVAN, ALONG WITH BILATERAL RESTRAINS. PT IS TOLERATING CURRENT VENT SETTINGS WITH SATURATION AT 100%. PT HAS PACEMAKER WHICH IS CAPTURING AND SPIKING AT 70'S. PT HAS A N/G TUBE WITH NOVASOURCE AT 40ML/HR TOLERATING THIS WELL, RESIDUALS ARE 5-10 ML. PT HAS MCGUIRE CATH DRAINING YELLOW URINE. THERE ARE SKIN ISSUES THAT ARE ADDRESSED ON THE FLOW SHEET. PT WAS TURNED AND REPOSITIONED FOR COMFORT AND CARE. WILL CONTINUE TO MONITOR THIS PT.
[2017-05-01] VITALS (94 sets, daily range): BP systolic 88–140; BP diastolic 45–74
[2017-05-01] MEDS: IPRATROPIUM NEB FS 0.5 MG/2.5 ML AMPUL.NEB NEB SCH ×5 (03:13→19:32)
[2017-05-01 05:17] LABS: CALCIUM, SERUM 8.1 mg/dL (8.5-10.1); CHLORIDE 109 mmol/L (98-107); CREATININE 2.3 mg/dL (0.6-1.3); GLUCOSE 105 mg/dL (74-106); PHOSPHORUS 3.9 mg/dL (2.5-4.9); POTASSIUM 3.3 mmol/L (3.5-5.1); SODIUM SERUM 143 mmol/L (136-145); UREA NITROGEN, BLOOD 56 mg/dL (7-18)
[2017-05-01 05:23] LABS: CARBON DIOXIDE 24 mmol/L (21-32)
[2017-05-01] MEDS: ZOSYN IVPB 3.375 G in IV D5W 50ml IV SCH ×3 (05:42→18:19)
[2017-05-01] MEDS: IV 1/2NS 1000 ML 1,000 ML IV PRN (05:42)
[2017-05-01] MEDS: METOCLOPRAMIDE HCL 10 MG/2 ML VIAL IV SCH ×3 (05:42→18:19)
--- NOTE | 2017-05-01 08:00 | NUR ---
ICU/RN INITIAL NOTES,AM RECEIVED REPORT FROM NIGHT NURSE. PT INTUBATED, ETT7.5, 25 CM AT THE LIP. PT ON VENT SETTINGS ORDERED BY MD, NO ACUTE DISTRESS NOTED AT THIS TIME. PT ON TELE, V PACING. PT SEDATED, HOWEVER, OPENS EYES TO PAINFUL STIMULI, AND FOLLOWS COMMANDS. RIGHT UPPER ARM PICC LINE PATENT AND INTACT, NO S/S OF INFECTION OF INFILTRATION NOTED. LOW DOSE LEVO INFUSING FOR BP SUPPORT, 10 MCG OF DIPRIVAN FOR SEDATION. BILATERAL WRIST RESTRAINTS ASSESSED PER PROTOCOL. ALL NEEDS WILL BE MET, SAFETY MEASURES TAKEN, BED IN LOW POSITION, SIDE RAILS UP, CALL LIGHT WITHIN REACH. WILL CONTINUE TO CARE AND MONITOR
[2017-05-01 08:05] LABS: BASOPHILS % (AUTO) 0.2 % (0.0-2.0); EOSINOPHILS # (AUTO) 0.1 /CMM (0.0-0.7); EOSINOPHILS % (AUTO) 1.4 % (0.0-6.0); HEMATOCRIT 23 % (39-51); HEMOGLOBIN 7.5 g/dL (13.5-17.5); LYMPHOCYTES # (AUTO) 0.7 /CMM (0.8-4.8); LYMPHOCYTES % (AUTO) 6.4 % (20.0-44.0); MEAN CORPUSCULAR HEMOGLOBIN 30 PG (26.0-33.0); MEAN CORPUSCULAR HGB CONC 33 g/dl (31.0-36.0); MEAN CORPUSCULAR VOLUME 89 fL (80-96); MONOCYTES # (AUTO) 0.6 /CMM (0.1-1.30); MONOCYTES % (AUTO) 5.6 % (2.0-12.0); NEUTROPHILS # (AUTO) 9.2 /CMM (1.8-8.9); NEUTROPHILS % (AUTO) 86.4 % (43.0-81.0); PLATELET COUNT (AUTO) 164 /CMM (150-450); RDW COEFFICIENT OF VARIATION 17.4 (11.5-15.0); RED BLOOD CELL COUNT(AUTO) 2.55 MIL/uL (4.5-6.0); WHITE BLOOD COUNT (AUTO) 10.6 K/uL (4.3-11.0)
[2017-05-01] MEDS: PANTOPRAZOLE 40 MG VIAL IV SCH (09:07)
[2017-05-01] MEDS: VANCOMYCIN 1 GM in IV D5W 250 ML IV SCH (09:07)
[2017-05-01] MEDS: ASPIRIN 300 MG/SUPP.RECT RC SCH (09:07)
[2017-05-01] MEDS: ENOXAPARIN SODIUM 80 MG/0.8 ML DISP.SYRIN SQ SCH (09:07)
[2017-05-01 09:55] LABS: BASOPHILS % (AUTO) 0.1 % (0.0-2.0); EOSINOPHILS # (AUTO) 0.4 /CMM (0.0-0.7); HEMATOCRIT 25 % (39-51); HEMOGLOBIN 8.5 g/dL (13.5-17.5); LYMPHOCYTES # (AUTO) 0.9 /CMM (0.8-4.8); LYMPHOCYTES % (AUTO) 6.6 % (20.0-44.0); MEAN CORPUSCULAR HEMOGLOBIN 30 PG (26.0-33.0); MEAN CORPUSCULAR HGB CONC 34 g/dl (31.0-36.0); MEAN CORPUSCULAR VOLUME 88 fL (80-96); MONOCYTES # (AUTO) 0.8 /CMM (0.1-1.30); MONOCYTES % (AUTO) 5.9 % (2.0-12.0); NEUTROPHILS % (AUTO) 84.4 % (43.0-81.0); PLATELET COUNT (AUTO) 171 /CMM (150-450); RDW COEFFICIENT OF VARIATION 17.8 (11.5-15.0); RED BLOOD CELL COUNT(AUTO) 2.87 MIL/uL (4.5-6.0); WHITE BLOOD COUNT (AUTO) 13.1 K/uL (4.3-11.0)
[2017-05-01 10:09] LABS: CALCIUM, SERUM 8.3 mg/dL (8.5-10.1); CARBON DIOXIDE 23 mmol/L (21-32); CHLORIDE 108 mmol/L (98-107); CREATININE 2.3 mg/dL (0.6-1.3); GLUCOSE 125 mg/dL (74-106); POTASSIUM 3.5 mmol/L (3.5-5.1); SODIUM SERUM 142 mmol/L (136-145); UREA NITROGEN, BLOOD 58 mg/dL (7-18)
[2017-05-01] MEDS ORDERED: POTASSIUM CL. PREMIX PERIPHER. 50 ML IV SCH (10:16)
[2017-05-01 10:33] LABS: INR 1.17 (0.87-1.13); PROTHROMBIN TIME 12.7 SECS (9.5-12.7)
[2017-05-01 10:37] LABS: D-DIMER 1.09 mg/L(FEU (0.17-0.50)
[2017-05-01] MEDS: Potassium Chloride 20 MEQ in IV NS 0.9% 1,000 ML IV PRN (14:22)
[2017-05-01] MEDS: SOD FERRIC GLUC 125 MG in IV NS 0.9% 100 ML IV SCH (14:58)
[2017-05-01] MEDS: RENAL NOVASOURCE 1,000 ML BOTTLE GT PRN (15:52)
[2017-05-01] MEDS: PROPOFOL 100 ML IV PRN (15:53)
[2017-05-01] MEDS: NOREPINEPHRINE 8 MG in IV D5W 500 ML IV PRN (16:09)
--- NOTE | 2017-05-01 17:00 | NUR ---
ICU/RN: LEVO OFF. WILL CONTINUE TO MONITOR BP Q 15 MINUTES.
--- NOTE | 2017-05-01 18:47 | NUR ---
ICU/RN ENDING NOTES,AM REPORT WILL BE ENDORSED TO NIGHT NURSE FOR CONTINUATION OF CARE. ALL NEEDS MET. PT ON VENT SETTINGS ORDERED BY MD, NO ACUTE DISTRESS NOTED. PT CONTINUES TO V PACE ON TELE. NG FEEDING INFUSING, TOLERATING WELL, NO RESIDUAL NOTED. RIGHT UPPER ARM PICC LINE PATENT, LEVO TURNED OFF, MAINTAINING BP, DIPRIVAN INFUSING AT 10 MCG. IV FLUIDS INFUSING ORDERED. PT BATHE, TURNED AND REPOSITIONED. ALL NEEDS MET, SAFETY MEASURES TAKEN, BED IN LOW POSITION, SIDE RAILS UP, CALL LIGHT WITHIN REACH. POSSIBLE WEANING IN AM. AT BEDSIDE, ALL QUESTIONS ANSWERED.
--- NOTE | 2017-05-01 20:00 | NUR ---
CREMATOR - NOTES - REPORT RECEIVED, PT IS ORALLY INTUBATED WITH SEDATION 10MCG DIPRIVAN, ALONG WITH BILATERAL RESTRAINS. PT IS TOLERATING CURRENT VENT SETTINGS WITH SATURATION AT 100%. PT HAS PACEMAKER WHICH IS CAPTURING AND SPIKING AT 70'S. PT HAS A N/G TUBE WITH NOVASOURCE AT 40ML/HR TOLERATING THIS WELL, RESIDUALS ARE 5-10 ML. PT HAS MCGUIRE CATH DRAINING YELLOW URINE. THERE ARE SKIN ISSUES THAT ARE ADDRESSED ON THE FLOW SHEET. PT WAS TURNED AND REPOSITIONED FOR COMFORT AND CARE. WILL CONTINUE TO MONITOR THIS PT.
[2017-05-02] VITALS (100 sets, daily range): BP systolic 77–168; BP diastolic 44–117
[2017-05-02] MEDS: IPRATROPIUM NEB FS 0.5 MG/2.5 ML AMPUL.NEB NEB SCH ×7 (00:04→23:27)
[2017-05-02] MEDS: Potassium Chloride 20 MEQ in IV NS 0.9% 1,000 ML IV PRN (03:45)
[2017-05-02] MEDS: PROPOFOL 100 ML IV PRN ×2 (03:46→17:37)
--- NOTE | 2017-05-02 04:46 | NUR ---
PT HAS 850 RESIDUALS FROM NGT TUBE FEEDING NOVASOURCE @ 40 ML/HR, I GOT 0 RESIDUALS AT 2000 AND 0000 WHEN I CHECKED, BUT AT 0400 I GOT 850 ML
[2017-05-02 05:00] LABS: BASOPHILS % (AUTO) 0.1 % (0.0-2.0); EOSINOPHILS # (AUTO) 0.3 /CMM (0.0-0.7); EOSINOPHILS % (AUTO) 2.7 % (0.0-6.0); HEMATOCRIT 24 % (39-51); HEMOGLOBIN 8.1 g/dL (13.5-17.5); LYMPHOCYTES # (AUTO) 0.7 /CMM (0.8-4.8); LYMPHOCYTES % (AUTO) 5.7 % (20.0-44.0); MEAN CORPUSCULAR HEMOGLOBIN 30 PG (26.0-33.0); MEAN CORPUSCULAR HGB CONC 34 g/dl (31.0-36.0); MEAN CORPUSCULAR VOLUME 89 fL (80-96); MONOCYTES # (AUTO) 0.7 /CMM (0.1-1.30); MONOCYTES % (AUTO) 6.3 % (2.0-12.0); NEUTROPHILS # (AUTO) 10.1 /CMM (1.8-8.9); NEUTROPHILS % (AUTO) 85.2 % (43.0-81.0); PLATELET COUNT (AUTO) 189 /CMM (150-450); RDW COEFFICIENT OF VARIATION 17.6 (11.5-15.0); RED BLOOD CELL COUNT(AUTO) 2.71 MIL/uL (4.5-6.0); WHITE BLOOD COUNT (AUTO) 11.9 K/uL (4.3-11.0)
[2017-05-02 05:33] LABS: CALCIUM, SERUM 8.4 mg/dL (8.5-10.1); CARBON DIOXIDE 24 mmol/L (21-32); CHLORIDE 110 mmol/L (98-107); CREATININE 2.3 mg/dL (0.6-1.3); GLUCOSE 99 mg/dL (74-106); POTASSIUM 3.8 mmol/L (3.5-5.1); SODIUM SERUM 143 mmol/L (136-145); UREA NITROGEN, BLOOD 58 mg/dL (7-18)
[2017-05-02 05:56] LABS: BAND % (MANUAL) 5 % (0.0-5.0); EOSINOPHILS % (MANUAL) 3 % (0-4); LYMPHOCYTES % (MANUAL) 11 % (16-48); MONOCYTES % (MANUAL) 3 % (0-11.0); NEUTROPHILS % (MANUAL) 78 (42-76)
[2017-05-02] MEDS: METOCLOPRAMIDE HCL 10 MG/2 ML VIAL IV SCH ×4 (06:32→17:37)
[2017-05-02] MEDS: ZOSYN IVPB 3.375 G in IV D5W 50ml IV SCH ×5 (06:32→17:37)
--- NOTE | 2017-05-02 07:15 | NUR ---
ROUTE SALES ASSOCIATE NOTES RECEIVED PATIENT SEDATED , NOT IN ACUTE DISTRESS , RESPIRATION EVEN AND UNLABORED WITH SPO2 OF 100% VIA MECHANICAL VENTILATOR SETTING ORDERED , ETT 7.5/[address] , V PACING 75 ON BEDSIDE MONITOR , FC DRAINING WELL VIA GRAVITY WITH CLEAR YELLOW URINE , ON KCI MATTRESS , L NARE NGT PATENT AND INTACT NGT FEEDING HELD DUE TO HIGH RESIDUALS 800ML IN AMOUNT , ANGELO PICC LINE PATENT AND INTACT WITH DIPRIVAN @ 20MCG/MIN , NS WITH 20MEQ KCL @ 100ML/HR INFUSING WELL , ALL NEEDS ATTENDED , BED ON LOW AND LOCKED POSITION , SIDE RAILS X2 , CALL LIGHT WITHIN REACH , HOB @ 45 , WILL CONTINUE TO MONITOR
[2017-05-02] MEDS: ASPIRIN 300 MG/SUPP.RECT RC SCH (08:20)
[2017-05-02] MEDS: PANTOPRAZOLE 40 MG VIAL IV SCH (08:20)
[2017-05-02] MEDS: ENOXAPARIN SODIUM 80 MG/0.8 ML DISP.SYRIN SQ SCH (08:25)
--- NOTE | 2017-05-02 09:00 | NUR ---
ADVERTISING VICE PRESIDENT NOTES DIPRIVAN OFF FOR SEDATION VACATION , BILATERAL SOFT WRIST RESTRAINS IN PLACE , WILL CONTINUE TO MONITOR
--- NOTE | 2017-05-02 10:00 | NUR ---
HOUSE MOVER HELPER NOTES PLACED BACK PT ON SEDATION DUE TO BP OF 157/55 , BITTING ETT , HR OF 110 , PT LETHARGIC , DROWSY BUT ABLE TO FOLLOW SIMPLE COMMANDS , WILL CONTINUE TO MONITOR
[2017-05-02] MEDS: VANCOMYCIN 0.75 GM in IV D5W 250 ML IV SCH (10:56)
[2017-05-02 12:09] LABS: *SPE ALBUMIN 2.6 g/dL (2.9-4.4); *SPE ALPHA-1-GLOBULIN 0.4 g/dL (0.0-0.4); *SPE ALPHA-2-GLOBULIN 0.7 g/dL (0.4-1.0); *SPE BETA GLOBULIN 0.8 g/dL (0.7-1.3); *SPE GLOBULIN, TOTAL 2.7 g/dL (2.2-3.9); *SPE M-SPIKE Not Observed g/dL (Not Observed); *SPE PROTEIN TOTAL 5.3 g/dL (6.0-8.5); *SPEGAMMA GLOBULIN 0.9 g/dL (0.4-1.8)
--- NOTE | 2017-05-02 12:42 | NUR ---
ONCOLOGY REP SPECIALIST NOTES GT FEEDING OF NOVASOURCE RESTARTED @ 20ML/HR , NO RESIDUALS NOTED AT THIS TIME , WILL CONTINUE TO MONITOR
[2017-05-02] MEDS: SOD FERRIC GLUC 125 MG in IV NS 0.9% 100 ML IV SCH (13:59)
[2017-05-02] MEDS: MUPIROCIN OINT 2% 22 GM TUBE SCH ×2 (17:37→20:26)
--- NOTE | 2017-05-02 19:30 | NUR ---
RN NOTES RECEIVED PT SEDATED ON BED WITH DIPRIVAN @ 20MCG/KG/MIN. ON VENT AC 16, TV 500, 40% FIO2, PEEP 5, 7.5/25@LIP SATURATING WELL, NO S/S OF RESP DISTRESS. CURRENTLY VPACING ON THE MONITOR, HR 70'S. LEFT NARE NGT WITH NOVASOURCE FEEDING @ 20MLS/HR (GOAL:40MLS/HR), WITH 20MLS RESIDUALS, WILL INCREASE RATE TOLERATED. MCGUIRE CATH INTACT. RIGHT UPPER ARM PICC TKO FLUSHED AND PATENT, NO S/S OF INFILTRATION/INFECTION, DRESSING CDI. BED LOW AND LOCKED, SIDERAILS UP. WILL MONITOR
[2017-05-03] VITALS (37 sets, daily range): BP systolic 121–173; BP diastolic 55–86
[2017-05-03] MEDS: ZOSYN IVPB 3.375 G in IV D5W 50ml IV SCH ×3 (00:35→11:04)
[2017-05-03] MEDS: METOCLOPRAMIDE HCL 10 MG/2 ML VIAL IV SCH ×4 (00:35→17:01)
[2017-05-03] MEDS: PROPOFOL 100 ML IV PRN (02:48)
[2017-05-03] MEDS: IPRATROPIUM NEB FS 0.5 MG/2.5 ML AMPUL.NEB NEB SCH ×6 (03:05→23:10)
[2017-05-03 04:58] LABS: BASOPHILS % (AUTO) 0.2 % (0.0-2.0); EOSINOPHILS # (AUTO) 0.3 /CMM (0.0-0.7); EOSINOPHILS % (AUTO) 1.8 % (0.0-6.0); LYMPHOCYTES # (AUTO) 0.6 /CMM (0.8-4.8); LYMPHOCYTES % (AUTO) 4.2 % (20.0-44.0); MEAN CORPUSCULAR HEMOGLOBIN 30 PG (26.0-33.0); MEAN CORPUSCULAR HGB CONC 34 g/dl (31.0-36.0); MEAN CORPUSCULAR VOLUME 88 fL (80-96); MONOCYTES # (AUTO) 0.7 /CMM (0.1-1.30); MONOCYTES % (AUTO) 5.2 % (2.0-12.0); NEUTROPHILS # (AUTO) 12.7 /CMM (1.8-8.9); NEUTROPHILS % (AUTO) 88.6 % (43.0-81.0); PLATELET COUNT (AUTO) 211 /CMM (150-450); RDW COEFFICIENT OF VARIATION 17.4 (11.5-15.0); RED BLOOD CELL COUNT(AUTO) 2.18 MIL/uL (4.5-6.0); WHITE BLOOD COUNT (AUTO) 14.4 K/uL (4.3-11.0)
[2017-05-03 05:10] LABS: CALCIUM, SERUM 8.6 mg/dL (8.5-10.1); CARBON DIOXIDE 23 mmol/L (21-32); CHLORIDE 111 mmol/L (98-107); CREATININE 2.3 mg/dL (0.6-1.3); GLUCOSE 97 mg/dL (74-106); POTASSIUM 3.5 mmol/L (3.5-5.1); SODIUM SERUM 145 mmol/L (136-145); UREA NITROGEN, BLOOD 60 mg/dL (7-18)
[2017-05-03 05:22] LABS: HEMOGLOBIN 6.6 g/dL (13.5-17.5)
[2017-05-03 05:23] LABS: HEMATOCRIT 19 % (39-51)
--- NOTE | 2017-05-03 06:00 | NUR ---
RN NOTES RECEIVED CRITICAL VALUE HGB 6.6 AND HCT 19. ASKED LAB TO REDRAW PERIPHERALLY TO VERIFY RESULTS. CURRENTLY AWAITING RESULTS
--- NOTE | 2017-05-03 06:40 | NUR ---
RN NOTES PT REMAINS STABLE OF THE MOMENT. ALL DUE MEDS GIVEN, AM CARE PROVIDED. STILL WAITING FOR CBC REDRAW RESULTS. NO S/S OF ACTIVE BLEEDING NOTED. WILL ENDORSE JAIR TO YENNY RN Addendum: 05/03/17 at 0841 by GUS SNELL RN Peripheral redraw -- H/H 7.5/23
[2017-05-03 06:53] LABS: PHOSPHORUS 3.7 mg/dL (2.5-4.9)
[2017-05-03 07:21] LABS: EOSINOPHILS # (AUTO) 0.2 /CMM (0.0-0.7); EOSINOPHILS % (AUTO) 1.7 % (0.0-6.0); HEMATOCRIT 23 % (39-51); HEMOGLOBIN 7.5 g/dL (13.5-17.5); LYMPHOCYTES # (AUTO) 0.6 /CMM (0.8-4.8); LYMPHOCYTES % (AUTO) 5.1 % (20.0-44.0); MEAN CORPUSCULAR HEMOGLOBIN 29 PG (26.0-33.0); MEAN CORPUSCULAR HGB CONC 34 g/dl (31.0-36.0); MEAN CORPUSCULAR VOLUME 88 fL (80-96); MONOCYTES # (AUTO) 0.8 /CMM (0.1-1.30); MONOCYTES % (AUTO) 6.1 % (2.0-12.0); NEUTROPHILS % (AUTO) 87.1 % (43.0-81.0); PLATELET COUNT (AUTO) 198 /CMM (150-450); RDW COEFFICIENT OF VARIATION 17.9 (11.5-15.0); RED BLOOD CELL COUNT(AUTO) 2.56 MIL/uL (4.5-6.0); WHITE BLOOD COUNT (AUTO) 12.6 K/uL (4.3-11.0)
--- NOTE | 2017-05-03 07:30 | NUR ---
ICU/RN - Initial Notes Received pt orally intubated to mechanical vent with settings as ordered. Sedated on Diprivan @ 20mcg/kg/min. On tele reading Vpacing 71. Left nare NG tube with tube feeding running at 30mL/hr, gastric residual at this time 20mL. Irizarry catheter intact draining urine to gravity. ANGELO PICC line patent and intact with NS TKO infusing. Safety and comfort measures in place. Pt suctioned and repositioned for comfort. Will continue to monitor pt closely.
--- NOTE | 2017-05-03 07:47 | NUR ---
RT PT RECEIVED ORALLY INTUBATED WITH 7.5 AT 23CM SECURED AT THE LIP LINE. PT IS CURRENTLY SEDATED AT THIS TIME. VENT IS PLUGGED INTO RED OUTLET. FAMILY ASSESSMENT WORKER CUFF PRESSURE NOTED. VENT ALARMS ARE SET AND AUDIBLE WITH BVM BY BEDSIDE. NO RESPIRATORY DISTRESS NOTED AT THIS TIME, WILL CONTINUE TO MONITOR. Addendum: 05/03/17 at 1850 by LEANDRO RAMOS RT Amended: Links added.
[2017-05-03 07:54] LABS: BAND % (MANUAL) 1 % (0.0-5.0); EOSINOPHILS % (MANUAL) 1 % (0-4); LYMPHOCYTES % (MANUAL) 3 % (16-48); MONOCYTES % (MANUAL) 4 % (0-11.0); NEUTROPHILS % (MANUAL) 91 (42-76)
[2017-05-03] MEDS: PANTOPRAZOLE 40 MG VIAL IV SCH (08:13)
[2017-05-03] MEDS: Z GUARD REMEDY 2 OZ OINT TP PRN (08:13)
[2017-05-03] MEDS: ENOXAPARIN SODIUM 80 MG/0.8 ML DISP.SYRIN SQ SCH (08:18)
[2017-05-03] MEDS: ASPIRIN EC 81 MG TABLET.DR PO SCH (08:20)
[2017-05-03] MEDS: MUPIROCIN OINT 2% 22 GM TUBE SCH ×2 (09:04→21:03)
[2017-05-03] MEDS: VANCOMYCIN 0.75 GM in IV D5W 250 ML IV SCH (09:49)
[2017-05-03 10:35] LABS: ABG BASE EXCESS -3.8 mmol/L; ABG OXYGEN SATURATION 98.3 % (92.0-98.5); ABG PCO2 32.3 mmHg (35.0-45.0); ABG PH 7.415 (7.350-7.450); ABG PO2 188.4 mmHg (75.0-100.0); AaDO2 59.7 mmHg; COHb 0.5 % (0.5-1.5); MetHb 0.9 % (0.0-1.5); O2Hb 96.9 % (94.0-97.0); PEEP,BG 5 cm H2O; SITE, ABG Left Radial; VENT MODE, BG SIMV 4 / PS 12; VT, ABG 500 mL
--- NOTE | 2017-05-03 10:46 | NUR ---
ICU/RN - Notes At 0745 Diprivan gtt turned off for sedation vacation and for SIMV trial. At this time, pt lethargic, responds to verbal and deep stimuli. Pt able to follow simple commands - attempts to open eyes when instructed, squeezes left hand very weakly when instructed. Pt currently on SIMV mode on mechanical ventilator, in no acute respiratory distress.
--- NOTE | 2017-05-03 14:00 | NUR ---
ICU/RN - Notes Pt remains off sedation, still lethargic, although able to follow simple commands. Tolerating SIMV mode. Family at bedside. Updated on plan of care.
[2017-05-03] MEDS: SOD FERRIC GLUC 125 MG in IV NS 0.9% 100 ML IV SCH (15:38)
[2017-05-03] MEDS: RENAL NOVASOURCE 1,000 ML BOTTLE GT PRN (15:41)
--- NOTE | 2017-05-03 20:00 | NUR ---
Received patient lethargic able to follow simple commands.Intubated to vent on SIMV mode. Vent settings well tolerated.Sating 100%.Suctioned small amount clear secretions.Oral care done. AV paced 70.Hemodynamically stable.L nares NGT placement verified.Tube feeding in progress with 10 ml residual.HOB elevated at 30 degrees.IVF NS @ TKO infusing to nani picc line.Site intact.Turned and repositioned offloading pressure points.Continue monitoring.
--- NOTE | 2017-05-03 20:43 | NUR ---
PT RECEIVED INTUBATED WITH 7.5 ETT SECURED AT 23CM AT THE LIP. PT ON SIMV MODE TOLERATING SETTINGS. SX'D FOR SML AMT OF THICK PALE SECRETIONS. VENT ALARMS SET AND AUDIBLE. AMBU BAG AT BEDSIDE. VENT PLUGGED INTO RED OUTLET. WILL CONTINUE TO MONITOR. Addendum: 05/03/17 at 2043 by FELIPE MAN RT Amended: Links added.
[2017-05-03] MEDS: MORPHINE SULFATE INJ 4 MG/ML DISP.SYRIN IV PRN (21:56)
--- NOTE | 2017-05-03 21:56 | NUR ---
Patient grimacing,restless and bucking up the vent.Pain medications administered.Turned and repositioned.
[2017-05-04] VITALS (40 sets, daily range): BP systolic 121–182; BP diastolic 53–100
[2017-05-04] MEDS: hydrALAZINE HCL IV 20 MG VIAL IV PRN ×3 (00:20→23:01)
--- NOTE | 2017-05-04 00:20 | NUR ---
Patient BP reading elevated 172/72,182/79,174,86.Patient sleeping in no distress. loss prevention specialist notified with read back telephone orders received and carried.
[2017-05-04] MEDS: IPRATROPIUM NEB FS 0.5 MG/2.5 ML AMPUL.NEB NEB SCH ×6 (03:08→22:43)
[2017-05-04 04:40] LABS: CALCIUM, SERUM 9.1 mg/dL (8.5-10.1); CARBON DIOXIDE 25 mmol/L (21-32); CHLORIDE 112 mmol/L (98-107); CREATININE 2.3 mg/dL (0.6-1.3); GLUCOSE 127 mg/dL (74-106); POTASSIUM 3.2 mmol/L (3.5-5.1); SODIUM SERUM 146 mmol/L (136-145); UREA NITROGEN, BLOOD 60 mg/dL (7-18)
[2017-05-04] MEDS: METOCLOPRAMIDE HCL 10 MG/2 ML VIAL IV SCH ×5 (05:32→23:30)
--- NOTE | 2017-05-04 06:00 | NUR ---
Patient resting appears comfortable.VS stable.BP trending down to normal limits.No further signs of pain noted.Bathed and repositioned per protocol.Due meds administered.Patient tolerating feeding infusing @ 40 ml/hr since 0000.No residual noted.
[2017-05-04 08:02] LABS: BASOPHILS % (AUTO) 0.3 % (0.0-2.0); EOSINOPHILS # (AUTO) 0.3 /CMM (0.0-0.7); EOSINOPHILS % (AUTO) 2.8 % (0.0-6.0); HEMATOCRIT 24 % (39-51); HEMOGLOBIN 7.9 g/dL (13.5-17.5); LYMPHOCYTES # (AUTO) 0.8 /CMM (0.8-4.8); LYMPHOCYTES % (AUTO) 7.3 % (20.0-44.0); MEAN CORPUSCULAR HEMOGLOBIN 30 PG (26.0-33.0); MEAN CORPUSCULAR HGB CONC 33 g/dl (31.0-36.0); MEAN CORPUSCULAR VOLUME 88 fL (80-96); MONOCYTES # (AUTO) 0.8 /CMM (0.1-1.30); MONOCYTES % (AUTO) 6.9 % (2.0-12.0); NEUTROPHILS # (AUTO) 9.5 /CMM (1.8-8.9); NEUTROPHILS % (AUTO) 82.7 % (43.0-81.0); PLATELET COUNT (AUTO) 241 /CMM (150-450); RDW COEFFICIENT OF VARIATION 17.3 (11.5-15.0); RED BLOOD CELL COUNT(AUTO) 2.68 MIL/uL (4.5-6.0); WHITE BLOOD COUNT (AUTO) 11.5 K/uL (4.3-11.0)
[2017-05-04] MEDS: PANTOPRAZOLE 40 MG VIAL IV SCH (08:30)
[2017-05-04] MEDS: ASPIRIN EC 81 MG TABLET.DR PO SCH (08:30)
[2017-05-04] MEDS: MUPIROCIN OINT 2% 22 GM TUBE SCH ×2 (08:30→20:55)
[2017-05-04] MEDS: ENOXAPARIN SODIUM 80 MG/0.8 ML DISP.SYRIN SQ SCH (08:31)
[2017-05-04] MEDS ORDERED: CLONIDINE HCL 0.3 MG/24H PTWK 1 EA PATCH TD SCH (09:00)
[2017-05-04] MEDS: POTASSIUM CL. PREMIX PERIPHER. 50 ML IV SCH ×4 (09:31→12:48)
[2017-05-04] MEDS: VANCOMYCIN 0.75 GM in IV D5W 250 ML IV SCH (09:43)
--- NOTE | 2017-05-04 10:09 | NUR ---
INDUSTRIAL ECOLOGY TECHNICIAN NOTE 0720: Received patient awake but lethargic. Off sedation, patient is calm Able to follow some commands but not all the time. With ETT to vent, SIMV mode, tolerated. With ANGELO PICC intact. Irizarry cath intact, noted with clear yellow urine drained to BSD. AV pacing on 70's on the monitor. MARKETING ANALYTICS SPECIALIST restraints on to prevent pulling out invasive tubings. Left NGT intact, feeding tolerated, no residuals noted at this time. Kept HOB elevated. On MRSA sputum isolation, maintained and observed. 0930: S/E by dr. Henry, continue on same SIMV settings for now. Patient still lethargic. KCl 4bags to be given for K 3.2, 1st bag ongoing.
[2017-05-04] MEDS: RENAL NOVASOURCE 1,000 ML BOTTLE GT PRN (16:18)
--- NOTE | 2017-05-04 20:00 | NUR ---
Received patient lethargic follows simple commands.Bilateral soft wrist restrains on to prevent pulling out invasive tubes.Restrain protocol implemented.Maintained on same vent settings SIMV mode well tolerated saturation 100%.AV paced 92.SBP elevated 174.BP medication not due yet.No signs of pain noted.NGT intact, feeding continued on same rate.No residual noted.HOB elevated.Turned and repositioned offloading pressure points.Contact isolation for MRSA sputum observed.
[2017-05-04] MEDS ORDERED: IV NS 0.9% 250 ML IV ONE (22:00)
--- NOTE | 2017-05-04 22:15 | NUR ---
Patient BP remains elevated SBP 160'S,170'S.Patient resting no apparent distress noted. director of food and nutrition services notified of patient status.Read back telephone orders received and carried out.
[2017-05-04] MEDS ORDERED: hydrALAZINE HCL IV 20 MG VIAL ONE (22:31)
[2017-05-05] VITALS (38 sets, daily range): BP systolic 113–172; BP diastolic 57–90
[2017-05-05] MEDS: IPRATROPIUM NEB FS 0.5 MG/2.5 ML AMPUL.NEB NEB SCH ×6 (03:23→23:54)
[2017-05-05 04:50] LABS: CALCIUM, SERUM 9.3 mg/dL (8.5-10.1); CARBON DIOXIDE 25 mmol/L (21-32); CHLORIDE 114 mmol/L (98-107); GLUCOSE 123 mg/dL (74-106); POTASSIUM 3.6 mmol/L (3.5-5.1); SODIUM SERUM 148 mmol/L (136-145); UREA NITROGEN, BLOOD 58 mg/dL (7-18)
[2017-05-05] MEDS: METOCLOPRAMIDE HCL 10 MG/2 ML VIAL IV SCH ×4 (05:33→23:04)
[2017-05-05] MEDS ORDERED: hydrALAZINE HCL IV 20 MG VIAL ONE (06:02)
[2017-05-05] MEDS: hydrALAZINE HCL IV 20 MG VIAL IV PRN (06:08)
--- NOTE | 2017-05-05 06:15 | NUR ---
CXR done please refer to radiology report.Radiologist with some recommendation. Will endorse to AM shift RN to follow up and notify MD today.
--- NOTE | 2017-05-05 07:08 | NUR ---
[employer] MAKER NOTES RECEIVED PATIENT LETHARGIC , ABLE TO FOLLOWS SIMPLE COMMANDS , NOT IN ACUTE DISTRESS , RESPIRATION EVEN AND UNLABORED WITH SPO2 OF 100% VIA MECHANICAL VENTILATOR ON SIMV MODE , ETT 7.5/[address] , AV PACING 85 ON BEDSIDE MONITOR , FC DRAINING WELL VIA GRAVITY WITH CLEAR YELLOW URINE , ON KCI MATTRESS , L NARE NGT PATENT AND INTACT WITH NGT FEEDING OF NOVASOURCE @ 40ML/HR WITH NO RESIDUALS NOTED , ANGELO PICC LINE PATENT AND INTACT WITH NS @ TKO , BILATERAL SOFT WRIST RESTRAINS IN PLACE , ALL NEEDS ATTENDED , BED ON LOW AND LOCKED POSITION , SIDE RAILS X2 , CALL LIGHT WITHIN REACH , HOB @ 45 , WILL CONTINUE TO MONITOR .
[2017-05-05 07:54] LABS: BASOPHILS % (AUTO) 0.1 % (0.0-2.0); EOSINOPHILS # (AUTO) 0.1 /CMM (0.0-0.7); EOSINOPHILS % (AUTO) 0.9 % (0.0-6.0); HEMATOCRIT 26 % (39-51); HEMOGLOBIN 8.3 g/dL (13.5-17.5); LYMPHOCYTES # (AUTO) 0.9 /CMM (0.8-4.8); LYMPHOCYTES % (AUTO) 7.2 % (20.0-44.0); MEAN CORPUSCULAR HEMOGLOBIN 29 PG (26.0-33.0); MEAN CORPUSCULAR HGB CONC 33 g/dl (31.0-36.0); MEAN CORPUSCULAR VOLUME 89 fL (80-96); MONOCYTES # (AUTO) 1.1 /CMM (0.1-1.30); MONOCYTES % (AUTO) 8.2 % (2.0-12.0); NEUTROPHILS # (AUTO) 10.9 /CMM (1.8-8.9); NEUTROPHILS % (AUTO) 83.6 % (43.0-81.0); PLATELET COUNT (AUTO) 307 /CMM (150-450); RDW COEFFICIENT OF VARIATION 17.4 (11.5-15.0); RED BLOOD CELL COUNT(AUTO) 2.85 MIL/uL (4.5-6.0)
--- NOTE | 2017-05-05 07:58 | NUR ---
[facility] ARTIST NOTES SEEN AND EVALUATE BY KARLIE WOUND RN , AWAITING FOR WOUND TX ORDERS
[2017-05-05] MEDS ORDERED: HYDROGEL DRESSING 90 GM TUBE TP PRN (08:00)
[2017-05-05] MEDS: NITROGLYCERIN 30 GM TUBE TP SCH ×3 (08:25→21:12)
[2017-05-05] MEDS: PANTOPRAZOLE 40 MG VIAL IV SCH (08:25)
[2017-05-05] MEDS: hydrALAZINE HCL 50 MG TABLET PO SCH ×4 (08:26→17:49)
[2017-05-05] MEDS: HYDROGEL DRESSING 90 GM TUBE TP SCH (08:26)
[2017-05-05] MEDS: MUPIROCIN OINT 2% 22 GM TUBE SCH ×2 (08:26→21:13)
[2017-05-05] MEDS: ASPIRIN 81 MG TAB.CHEW GT SCH (08:26)
[2017-05-05] MEDS: ENOXAPARIN SODIUM 80 MG/0.8 ML DISP.SYRIN SQ SCH (08:31)
--- NOTE | 2017-05-05 09:26 | NUR ---
RAILWAY SIGNAL ELECTRICIAN NOTES NITRO PATCH AND HYDRALAZINE 100MG SCHEDULED @ 0900 NOT GIVEN PREVIOUSLY GIVEN @ 0830AM ,
--- NOTE | 2017-05-05 09:30 | NUR ---
PAPER PRODUCTS INSPECTOR NOTES DR WARE AT BEDSIDE , DISCUSSED LABS , CHEST XRAY , LATEST V/S , TEMP OF 99.5F , TOLERATING SIMV MODE SETTINGS ORDERED , LETHARGIC , FOLLOWS SIMPLE COMMANDS , TOLERATING TUBE FEEDINGS , PENDING REPEAT US OF BILATERAL LOWER EXTREMITIES , MD AWARE
[2017-05-05] MEDS: VANCOMYCIN 0.75 GM in IV D5W 250 ML IV SCH (09:35)
--- NOTE | 2017-05-05 09:36 | NUR ---
ENGINEERING TECH NOTES VANCOMYCIN IV NON ADMIN , VANCO THROUGH OF .
--- NOTE | 2017-05-05 10:00 | NUR ---
SEED PACKER NOTES DISCUSSED , LABS , BLE DVT RESULT TO DR FRED MD AWARE
--- NOTE | 2017-05-05 10:34 | NUR ---
ENGINE ROOM OPERATOR NOTES DR LERNER AT BEDSIDE , DISCUSSED VENT SETTINGS , LABS , CHEST XRAY CRITICAL RESULT AND LATEST V/S , AFEBRILE , TOLERATING TUBE FEEDINGS , LETHARGIC , DROWSY , ABLE TO FOLLOWS SIMPLE COMMANDS , OFF SEDATION AND PLACED ON SIMV MODE SINCE 05/03 , , PER MD CONTINUE SIMV MODE INCREASE RATE TO 14 , CANCEL ABG IN THIS AM MD AWARE
[2017-05-05] MEDS: RENAL NOVASOURCE 1,000 ML BOTTLE GT PRN (17:49)
[2017-05-05] MEDS: IV NS 0.9% 250 ML IV PRN ×2 (18:00→23:19)
--- NOTE | 2017-05-05 19:30 | NUR ---
SOLOIST DANCER: RECEIVED ORALLY INTUBATED ON SIMV MODE AND TOLERATING VENT SETTINGS ORDERED. EYES CLOSED, ABLE TO OPEN EYES AND FOLLOW SIMPLE COMMANDS. NO EVIDENCE OF DISCOMFORT. 100% V-PACED WT OCCASIONAL A-PACING ON ENGINEERING MATHEMATICIAN. TOLERATING GTF WT NO RESIDUAL. BILAT. SOFT WRIST RESTRAINTS IN PLACE PER PROTOCOL FOR EPISODES OF TRYING TO REACH TUBINGS. CIRCULATION WNL & NO NEW SKIN BREAKDOWN WHEN RESTRAINTS WERE RELEASED AND CHECKED. ANGELO PICC LINE INTACT AND INFUSING NS TKO WT NO S/S OF COMPLICATIONS. F/C PATENT DRAINING MART COLORED URINE WT SEDIMENTS. SAFETY PRECAUTION NOTED. HOB ELEVATED. WILL CONTINUE TO MONITOR.
[2017-05-05] MEDS: VANCOMYCIN 1 GM in IV D5W 250 ML IV SCH (21:47)
[2017-05-05] MEDS: MORPHINE SULFATE INJ 4 MG/ML DISP.SYRIN IV PRN (22:45)
--- NOTE | 2017-05-05 23:15 | NUR ---
FOREST RESOURCE SPECIALIST: REASSESSED AFTER GIVEN MORPHINE WT GOOD EFFECT (0/10). NO FACIAL GRIMACE NOTED, NO EPISODE OF RESTLESSNESS. EYES CLOSED, EASILY AROUSED WITH TACTILE STIMULI.
[2017-05-06] VITALS (37 sets, daily range): BP systolic 87–171; BP diastolic 43–93
[2017-05-06] MEDS: hydrALAZINE HCL IV 20 MG VIAL IV PRN (00:11)
--- NOTE | 2017-05-06 01:05 | NUR ---
STRANDING SUPERVISOR: REASSESSED AFTER GIVEN HYDRALAZINE IV WT GOOD EFFECT. SBP NOW AT 150. EYES CLOSED BUT WT EPISODES OF BITING ETT, BITE BLOCK IN PLACE. BILAT. SOFT WRIST RESTRAINTS IN PLACE. SAFETY PRECAUTION NOTED AT ALL TIMES.
[2017-05-06] MEDS: MORPHINE SULFATE INJ 4 MG/ML DISP.SYRIN IV PRN (03:27)
[2017-05-06] MEDS: IPRATROPIUM NEB FS 0.5 MG/2.5 ML AMPUL.NEB NEB SCH ×6 (04:04→23:27)
[2017-05-06 05:14] LABS: CALCIUM, SERUM 9.3 mg/dL (8.5-10.1); CARBON DIOXIDE 25 mmol/L (21-32); CHLORIDE 116 mmol/L (98-107); CREATININE 1.9 mg/dL (0.6-1.3); GLUCOSE 113 mg/dL (74-106); POTASSIUM 3.7 mmol/L (3.5-5.1); SODIUM SERUM 149 mmol/L (136-145); UREA NITROGEN, BLOOD 62 mg/dL (7-18)
[2017-05-06] MEDS: METOCLOPRAMIDE HCL 10 MG/2 ML VIAL IV SCH ×4 (05:30→23:57)
--- NOTE | 2017-05-06 06:30 | NUR ---
HARBOR DEPARTMENT MANAGER: STILL WT EPISODES OF FIGHTING THE VENT, RESTLESS AND PULLING LIFE SUSTAINING TUBES. BILAT. SOFT WRIST RESTRAINTS IN PLACE PER PROTOCOL. MOSTLY EYES WERE CLOSED THROUGHOUT THE SHIFT AND TRIES TO OPEN ONLY ASKED AND FOLLOW SIMPLE COMMANDS. SAFETY PRECAUTION NOTED AT ALL TIMES.
[2017-05-06] MEDS: NIFEdipine (10MG) 10 MG CAPSULE PO SCH ×3 (06:57→20:37)
--- NOTE | 2017-05-06 07:00 | NUR ---
SIDE SEAM ENVELOPE MACHINE OPERATOR: ADMINISTERED PROCARDIA VIA NGT AND TOLERATED WELL. HOB AT 45 DEGREES AT ALL TIMES.
--- NOTE | 2017-05-06 08:00 | NUR ---
SEARCH ENGINE MARKETING SPECIALIST RECEIVED PATIENT LETHARGIC ON MECHANICAL VENTILATORY SUPPORT ON SIMV SATURATION 100% AFEBRILE NSR WITH V PACING ON THE MONITOR BLOOD PRESSURE WNL FEEDING TUBE TOLERATED, NO RESIDUAL SEEN AT THE MOMENT RESTLESSNESS NOTED AT TIMES ON MCGUIRE CATHETER DRAINING TO YELLOWISH URINE MODERATE IN AMOUNT
[2017-05-06] MEDS: hydrALAZINE HCL 50 MG TABLET PO SCH ×3 (08:16→17:00)
[2017-05-06] MEDS: PANTOPRAZOLE 40 MG VIAL IV SCH (08:16)
[2017-05-06] MEDS: ASPIRIN 81 MG TAB.CHEW GT SCH (08:16)
[2017-05-06] MEDS: ENOXAPARIN SODIUM 80 MG/0.8 ML DISP.SYRIN SQ SCH (08:17)
[2017-05-06] MEDS: NITROGLYCERIN 30 GM TUBE TP SCH ×2 (08:19→20:38)
[2017-05-06] MEDS: MUPIROCIN OINT 2% 22 GM TUBE SCH ×2 (08:19→20:37)
[2017-05-06] MEDS: HYDROGEL DRESSING 90 GM TUBE TP SCH (08:19)
--- NOTE | 2017-05-06 09:00 | NUR ---
CHIMNEY BUILDER HELPER SEEN AND EXAMINED BY DR. WARE, INFORMED FOR ELEVATED BLOOD SERUM NA
--- NOTE | 2017-05-06 11:30 | NUR ---
cpap 5/ ps 10 fio2 40% per md order. Addendum: 05/06/17 at 1153 by TIFFANI CARLISLE RT Amended: Links added.
--- NOTE | 2017-05-06 11:47 | NUR ---
et tube adjusted as order from 25cm lipline to 27cm lipline. Addendum: 05/06/17 at 1148 by TIFFANI CARLISLE RT Amended: Links added.
--- NOTE | 2017-05-06 12:31 | NUR ---
POLICY MANAGER PULOMONOLOGIST SEEN AND EXAMINED PATIENT PLACED PATIENT ON CPAP PER RT AND WILL PUT HIM BACK ON SIMV AT 1330 RT PUSH ETT TO [address] PAULINO
[2017-05-06] MEDS: PROPOFOL 100 ML IV PRN (13:41)
--- NOTE | 2017-05-06 13:45 | NUR ---
back to simv as order Addendum: 05/06/17 at 1345 by TIFFANI CARLISLE RT Amended: Links added.
--- NOTE | 2017-05-06 13:46 | NUR ---
I MET WITH THE PT'S SON AND PER MY D/W DR PAULINO TO OUTLINE OPTIONS OF AGGRESSIVENESS OF CARE. I PROVIDED THE FAMILY WITH THE OPINIONS OF THE CONSULTANTS. SON AND WILL MEET WITH ENTIRE FAMILY TO TALK ABOUT ABOVE IN PREPARATION FOR POSSIBLE EXTUBATION 05/07/17 AND SUBSEQUENT PLAN FOR AGGRESSIVENESS OF CARE.
--- NOTE | 2017-05-06 19:43 | NUR ---
ICU/PROFESSOR OF HISTORICAL THEOLOGY REPORT RECEIVED FROM DAY NURSE, PT IS ORALLY INTUBATED WITH SEDATION 35MCG DIPRIVAN, NO BILATERAL RESTRAINS. PT IS TOLERATING CURRENT VENT SETTINGS WITH SATURATION AT 100%. PT IS SINUS LAVONNE 50'S. PT HAS A ORAL/G TUBE, CLAMPED MEDS ONLY. PT HAS MCGUIRE CATH DRAINING YELLOW URINE. THERE ARE SKIN ISSUES THAT ARE ADDRESSED ON THE FLOW SHEET. PT WAS TURNED AND REPOSITIONED FOR COMFORT AND CARE. WILL CONTINUE TO MONITOR THIS PT. Addendum: 05/06/17 at 1945 by DYLAN MATA LVN WRONG PT
--- NOTE | 2017-05-06 21:25 | NUR ---
OPERATING TABLE ASSEMBLER NOTES RECEIVED PT IN BED. LOW DOSE SEDATION PER MD DUE TO SIMV MODE ON VENT. PT ABLE TO OPEN EYES, AND FOLLOW EASY SIMPLE COMMANDS. ON VENT VIA 7.5 ETT, 27 CM AT LIPS, SIMV 12, TV 500, FIO2 40%, PEEP 5, MONY WELL. TELE READS NSR IN 70s. LCW PACEMAKER, 30% AV-PACING, 100% V-PACING. RESTRAINT PLACE, BILATERAL SWR. LEFT NARE NGT REPLACED DUE TO CLOG, NEW NGT AT LEFT NARE AT 65 CM, LOCATION CONFIRMED WITH 2ND RN, RUNNING NOVASOURCE AT 40 ML/HR, NO RESIDUAL, NPO AT MIDNIGHT. MCGUIRE CATH IN PLACE, DRAINING WELL WITH CLOUDY YELLOW URINE WITH SEDIMENTS. ANGELO PICC RUNNING DIPRIVAN AT 5 MCG/KG/MIN AND NS AT TKO. TURNED AND REPOSITIONED, HOB ELEVATED, SIDE RAILS X3.
[2017-05-07] VITALS (37 sets, daily range): BP systolic 95–162; BP diastolic 50–92
--- NOTE | 2017-05-07 | NUR ---
POLITICAL ORGANIZER NOTES GTF TURNED OFF, NO RESIDUAL. PT IS NPO AT THIS TIME.
[2017-05-07] MEDS: PROPOFOL 100 ML IV PRN (01:59)
[2017-05-07] MEDS: IPRATROPIUM NEB FS 0.5 MG/2.5 ML AMPUL.NEB NEB SCH ×6 (04:18→23:36)
[2017-05-07 04:49] LABS: BASOPHILS % (AUTO) 0.1 % (0.0-2.0); EOSINOPHILS # (AUTO) 0.6 /CMM (0.0-0.7); EOSINOPHILS % (AUTO) 5.6 % (0.0-6.0); LYMPHOCYTES % (AUTO) 9.7 % (20.0-44.0); MEAN CORPUSCULAR HEMOGLOBIN 29 PG (26.0-33.0); MEAN CORPUSCULAR HGB CONC 33 g/dl (31.0-36.0); MEAN CORPUSCULAR VOLUME 89 fL (80-96); MONOCYTES # (AUTO) 0.8 /CMM (0.1-1.30); MONOCYTES % (AUTO) 7.7 % (2.0-12.0); NEUTROPHILS # (AUTO) 8.1 /CMM (1.8-8.9); NEUTROPHILS % (AUTO) 76.9 % (43.0-81.0); PLATELET COUNT (AUTO) 291 /CMM (150-450); RDW COEFFICIENT OF VARIATION 17.5 (11.5-15.0); RED BLOOD CELL COUNT(AUTO) 2.19 MIL/uL (4.5-6.0); WHITE BLOOD COUNT (AUTO) 10.6 K/uL (4.3-11.0)
[2017-05-07 05:05] LABS: ALANINE AMINOTRANSFERASE 20 U/L (12-78); ALBUMIN 1.6 g/dL (3.4-5.0); ALKALINE PHOSPHATASE 44 U/L (46-116); ASPARTATE AMINOTRANSFERASE 21 U/L (15-37); BILIRUBIN,TOTAL 0.3 mg/dL (0.2-1.0); CALCIUM, SERUM 9.3 mg/dL (8.5-10.1); CARBON DIOXIDE 26 mmol/L (21-32); CHLORIDE 119 mmol/L (98-107); CREATININE 1.8 mg/dL (0.6-1.3); GLUCOSE 89 mg/dL (74-106); MAGNESIUM 2.4 mg/dL (1.8-2.4); PHOSPHORUS 3.1 mg/dL (2.5-4.9); POTASSIUM 3.9 mmol/L (3.5-5.1); SODIUM SERUM 152 mmol/L (136-145); TOTAL PROTEIN, SERUM 5.2 g/dL (6.4-8.2); UREA NITROGEN, BLOOD 66 mg/dL (7-18)
[2017-05-07] MEDS: NIFEdipine (10MG) 10 MG CAPSULE PO SCH ×2 (05:08→12:05)
[2017-05-07] MEDS: METOCLOPRAMIDE HCL 10 MG/2 ML VIAL IV SCH ×4 (05:08→23:31)
[2017-05-07] MEDS: hydrALAZINE HCL IV 20 MG VIAL IV PRN (05:10)
[2017-05-07 05:20] LABS: HEMATOCRIT 20 % (39-51); HEMOGLOBIN 6.4 g/dL (13.5-17.5)
[2017-05-07 05:55] LABS: EOSINOPHILS % (MANUAL) 2 % (0-4); LYMPHOCYTES % (MANUAL) 12 % (16-48); MONOCYTES % (MANUAL) 7 % (0-11.0); NEUTROPHILS % (MANUAL) 79 (42-76)
[2017-05-07] MEDS: IV NS 0.9% 250 ML IV PRN (06:01)
[2017-05-07 06:15] LABS: BASOPHILS # (AUTO) 0.1 /CMM (0.0-0.2); BASOPHILS % (AUTO) 0.5 % (0.0-2.0); EOSINOPHILS # (AUTO) 0.6 /CMM (0.0-0.7); EOSINOPHILS % (AUTO) 4.9 % (0.0-6.0); HEMATOCRIT 22 % (39-51); HEMOGLOBIN 7.4 g/dL (13.5-17.5); LYMPHOCYTES # (AUTO) 1.2 /CMM (0.8-4.8); LYMPHOCYTES % (AUTO) 9.7 % (20.0-44.0); MEAN CORPUSCULAR HEMOGLOBIN 30 PG (26.0-33.0); MEAN CORPUSCULAR HGB CONC 33 g/dl (31.0-36.0); MEAN CORPUSCULAR VOLUME 90 fL (80-96); MONOCYTES # (AUTO) 0.5 /CMM (0.1-1.30); MONOCYTES % (AUTO) 3.9 % (2.0-12.0); NEUTROPHILS # (AUTO) 9.9 /CMM (1.8-8.9); PLATELET COUNT (AUTO) 267 /CMM (150-450); RED BLOOD CELL COUNT(AUTO) 2.49 MIL/uL (4.5-6.0); WHITE BLOOD COUNT (AUTO) 12.2 K/uL (4.3-11.0)
--- NOTE | 2017-05-07 06:24 | NUR ---
SPRING FORMER MACHINE NOTES AM LABS RESULTED WITH H/H OF 6.4/20, LAB TEST REPEATED TO VERIFY DUE TO SIGNIFICANT DECREASE WITH 24 HRS. NEW RESULTS FOR H/H ARE 7.4/, NOT CRITICAL VALUES.
--- NOTE | 2017-05-07 07:15 | NUR ---
TAKE OUT WAITRESS RECEIVED PATIENT SEDATED ON DIRPIVAN AT 10 MCGS ON MECHANICAL VENTILLATORY SUPPORT AT SIMV 12 AND PSV OF 12 MOVES HIS EXTREMITIES AT TIMES THEREFORE MAINTAINED ON RESTRAINT MAINATINED ON NPO NGT PUSHED DOWN UP TO 4 CMS ON MCGUIRE CATHETER DRAINING TO YELLOWISH URINE SMALL IN AMOUNT' SEEN AND EXAMINED BY DR. WARE NO ORDERS AT THE MOMENT
[2017-05-07] MEDS: PANTOPRAZOLE 40 MG VIAL IV SCH (08:26)
[2017-05-07] MEDS: ASPIRIN 81 MG TAB.CHEW GT SCH (08:26)
[2017-05-07] MEDS: hydrALAZINE HCL 50 MG TABLET PO SCH ×2 (08:27→12:06)
[2017-05-07] MEDS: MUPIROCIN OINT 2% 22 GM TUBE SCH ×2 (08:28→20:24)
[2017-05-07] MEDS: HYDROGEL DRESSING 90 GM TUBE TP SCH (08:29)
[2017-05-07] MEDS: NITROGLYCERIN 30 GM TUBE TP SCH ×2 (08:30→20:25)
[2017-05-07] MEDS: ENOXAPARIN SODIUM 80 MG/0.8 ML DISP.SYRIN SQ SCH (08:30)
[2017-05-07] MEDS: VANCOMYCIN 1 GM in IV D5W 250 ML IV SCH ×2 (09:13→10:00)
--- NOTE | 2017-05-07 12:55 | NUR ---
PRODUCT MARKETING EXECUTIVE DR. PAULINO TALKED AND EXPLAINED TO THE FAMILY OF HIS CONDITION UNIT AIDE TECH ORDERED FOR EXTUBATION EXTUBATION DONE, PLACED ON 4 LITERS NC WILL DECREASED ONCE 02 SATURATION STABLE
[2017-05-07] MEDS ORDERED: PHARMACY TO CHANGE PO MEDS TO GT/NG XX PRN (13:00)
--- NOTE | 2017-05-07 13:03 | NUR ---
EXTUBATED AND PLACED ON 2 LPM O2 FLOW VIA NASAL CANNULA PER LORA. Addendum: 05/07/17 at 1304 by TIFFANI CARLISLE RT Amended: Links added.
[2017-05-07] MEDS: hydrALAZINE HCL 50 MG TABLET GT SCH (16:57)
--- NOTE | 2017-05-07 19:30 | NUR ---
RN INITIAL NOTES RECEIVED PT SLEEPING ON BED, EASILY AROUSABLE TO NAME, A/OX1 ONLY, ABLE TO FOLLOW SIMPLE COMMANDS. ON 2L NASAL CANNULA, SATURATES WELL, NO S/S OF RESP DISTRESS. CURRENTLY VPACING ON THE MONITOR, HR 90'S. MCGUIRE CATH NOTED. LEFT NARE NGT CLAMPED. RIGHT UPPER ARM PICC FLUSHED AND PATENT, NO S/S OF INFILTRATION/INFECTION, DRESSING CDI. BED LOW AND LOCKED, SIDERAILS UP, BILATERAL SOFT WRIST RESTRAINTS IN PLACE FOR PATIENT SAFETY. WILL MONITOR
[2017-05-07] MEDS: ALBUTEROL FS 2.5 MG/3 ML VIAL.NEB NEB PRN (20:02)
[2017-05-07] MEDS: NIFEdipine (10MG) 10 MG CAPSULE GT SCH ×2 (20:24→20:47)
[2017-05-07] MEDS: VANCOMYCIN 0.75 GM in IV D5W 250 ML IV SCH (20:26)
--- NOTE | 2017-05-07 20:49 | NUR ---
RN NOTES NON-ADMINISTERED PROCARDIA. UNABLE TO ADMINISTER PROCARDIA CAPSULE THROUGH NGT. WILL ENDORSE TO AM SHIFT
[2017-05-07] MEDS ORDERED: IPRATROPIUM NEB FS 0.5 MG/2.5 ML AMPUL.NEB ONE (22:49)
[2017-05-08] VITALS (21 sets, daily range): BP systolic 105–149; BP diastolic 49–80
[2017-05-08] MEDS: IPRATROPIUM NEB FS 0.5 MG/2.5 ML AMPUL.NEB NEB SCH ×6 (03:33→23:54)
[2017-05-08] MEDS: ALBUTEROL FS 2.5 MG/3 ML VIAL.NEB NEB PRN ×2 (03:34→23:54)
[2017-05-08] MEDS: NIFEdipine (10MG) 10 MG CAPSULE GT SCH ×3 (05:00→21:00)
--- NOTE | 2017-05-08 05:00 | NUR ---
RN NOTES NON-ADMINISTERED PROCARDIA. UNABLE TO ADMINISTER PROCARDIA CAPSULE THROUGH NGT. CURRENT BP IS 138/66, HR 99. WILL ENDORSE TO AM SHIFT
[2017-05-08 05:05] LABS: CALCIUM, SERUM 9.3 mg/dL (8.5-10.1); GLUCOSE 73 mg/dL (74-106); UREA NITROGEN, BLOOD 68 mg/dL (7-18)
[2017-05-08] MEDS: METOCLOPRAMIDE HCL 10 MG/2 ML VIAL IV SCH ×3 (05:13→17:11)
[2017-05-08 05:21] LABS: CARBON DIOXIDE 23 mmol/L (21-32); CHLORIDE 116 mmol/L (98-107); SODIUM SERUM 149 mmol/L (136-145)
--- NOTE | 2017-05-08 07:46 | NUR ---
INITIAL TORPEDO SHOOTER NOTE RCVD PT RESTING IN BED, AROUSED TO LIGHT TOUCH, NAME. PT ALERT TO NAME, RE-ORIENTED TO PLACE, TIME, SITUATION. ABLE TO FOLLOW COMMANDS. V-PACING ON TELE. TOLERATING O2 VIA NC. LEFT NG-TUBE PLACEMENT VERIFIED BY AUSCULTATION/ASPIRATION. NO RESIDUAL OBTAINED. ANGELO PICC C/D/I/PATENT. NO S/O INFILTRATION/PHLEBITIS OBSERVED UPON FLUSHING. IVF INFUSING TKO. WILL CONTINUE TO MONITOR FOR SAFETY AND COMFORT. CALL LIGHT WITHIN REACH. BED IN LOW AND LOCKED POSITION.
[2017-05-08] MEDS: hydrALAZINE HCL 50 MG TABLET GT SCH ×3 (07:48→17:11)
[2017-05-08] MEDS: ASPIRIN 81 MG TAB.CHEW GT SCH (07:48)
[2017-05-08] MEDS: PANTOPRAZOLE 40 MG VIAL IV SCH (07:48)
[2017-05-08] MEDS: ENOXAPARIN SODIUM 80 MG/0.8 ML DISP.SYRIN SQ SCH (07:49)
[2017-05-08] MEDS: NITROGLYCERIN 30 GM TUBE TP SCH ×2 (07:49→21:24)
[2017-05-08] MEDS: MUPIROCIN OINT 2% 22 GM TUBE SCH ×2 (07:50→21:00)
[2017-05-08] MEDS: Z GUARD REMEDY 2 OZ OINT TP PRN (07:50)
[2017-05-08] MEDS: HYDROGEL DRESSING 90 GM TUBE TP SCH (07:51)
[2017-05-08] MEDS: IV D5W 1,000 ML IV SCH (08:55)
--- NOTE | 2017-05-08 09:48 | NUR ---
MATERIAL COMBINER NOTE DR. SCHULZ AT BEDSIDE SPOKE WITH PT'S SON. HE WAS UPDATED ON PT'S CONDITION. NO NEW ORDERS RCVD.
--- NOTE | 2017-05-08 12:52 | NUR ---
POWER TRANSFORMER REPAIRER NOTE DR. CASTILLO AT PT'S BEDSIDE, PT'S , PILAR SPOKE WITH DR. CASTILLO SHE WAS UPDATED ON PT'S CONDITION. NO NEW ORDERS RCVD
--- NOTE | 2017-05-08 17:56 | NUR ---
MS TRANSFER RN NOTE PT TRANSFERRED TO MS ROOM 105 VIA BED SHOWING NO S/O DISTRESS/PAIN. PT'S CARE ENDORSED TO IMAN THOMAS. PT'S BELONGINGS TRANSPORTED WITH PT.
--- NOTE | 2017-05-08 19:10 | NUR ---
MS RN OPENING NOTES RECEIVED REPORT FROM WILLIAM VALERIO. PATIENT A/O X1 W/ CONFUSION. RESPONDS TO VERBAL AND TACTILE STIMULI. BREATHING EVEN AND UNLABORED, ON ROOM AIR. NO S/S OF SOB OR RESPIRATORY DISTRESS. PULSES PRESENT. SKIN WARM TO TOUCH W/ DRESSINGS INTACT. BOWEL SOUNDS PRESENT IN ALL QUADRANTS. RIGHT UPPER ARM PICC LINE INTACT AND PATENT W/ DRESSING CDI. IV FLUIDS D5 RUNNING @ 75 ML/HR, NO COMPLICATIONS NOTED. MCGUIRE CATH INTACT AND DRAINING YELLOW URINE. SAFETY MEASURES IN PLACE W/ SIDE RAILS UP, BED LOCKED IN LOWEST POSITION, CALL LIGHT WITHIN REACH. WILL CONTINUE TO MONITOR.
[2017-05-08 20:43] LABS: CALCIUM, SERUM 9.5 mg/dL (8.5-10.1); CARBON DIOXIDE 26 mmol/L (21-32); CHLORIDE 114 mmol/L (98-107); GLUCOSE 119 mg/dL (74-106); POTASSIUM 3.8 mmol/L (3.5-5.1); SODIUM SERUM 147 mmol/L (136-145); UREA NITROGEN, BLOOD 69 mg/dL (7-18)
[2017-05-08 20:48] LABS: ALANINE AMINOTRANSFERASE 21 U/L (12-78); ALBUMIN 1.9 g/dL (3.4-5.0); ALKALINE PHOSPHATASE 55 U/L (46-116); ASPARTATE AMINOTRANSFERASE 40 U/L (15-37); BILIRUBIN,TOTAL 0.3 mg/dL (0.2-1.0); TOTAL PROTEIN, SERUM 5.6 g/dL (6.4-8.2)
[2017-05-08 20:51] LABS: BASOPHILS % (AUTO) 0.2 % (0.0-2.0); EOSINOPHILS # (AUTO) 0.2 /CMM (0.0-0.7); EOSINOPHILS % (AUTO) 1.9 % (0.0-6.0); LYMPHOCYTES # (AUTO) 1.1 /CMM (0.8-4.8); LYMPHOCYTES % (AUTO) 8.8 % (20.0-44.0); MEAN CORPUSCULAR HEMOGLOBIN 30 PG (26.0-33.0); MEAN CORPUSCULAR HGB CONC 34 g/dl (31.0-36.0); MEAN CORPUSCULAR VOLUME 90 fL (80-96); MONOCYTES # (AUTO) 0.6 /CMM (0.1-1.30); MONOCYTES % (AUTO) 5.4 % (2.0-12.0); NEUTROPHILS # (AUTO) 10.1 /CMM (1.8-8.9); NEUTROPHILS % (AUTO) 83.7 % (43.0-81.0); PLATELET COUNT (AUTO) 351 /CMM (150-450); RDW COEFFICIENT OF VARIATION 17.6 (11.5-15.0); RED BLOOD CELL COUNT(AUTO) 2.28 MIL/uL (4.5-6.0)
[2017-05-08 20:55] LABS: HEMATOCRIT 20 % (39-51); HEMOGLOBIN 6.8 g/dL (13.5-17.5)
[2017-05-08 21:38] LABS: BAND % (MANUAL) 3 % (0.0-5.0); LYMPHOCYTES % (MANUAL) 10 % (16-48); NEUTROPHILS % (MANUAL) 80 (42-76)
[2017-05-08 21:39] LABS: BASOPHILS % (MANUAL) 0 % (0.0-2.0); EOSINOPHILS % (MANUAL) 1 % (0-4); MONOCYTES % (MANUAL) 6 % (0-11.0)
[2017-05-09] VITALS (9 sets, daily range): BP systolic 115–157; BP diastolic 52–81
[2017-05-09] MEDS: IV D5W 1,000 ML IV SCH ×2 (00:13→12:09)
[2017-05-09] MEDS: METOCLOPRAMIDE HCL 10 MG/2 ML VIAL IV SCH ×4 (01:38→17:06)
[2017-05-09] MEDS: IPRATROPIUM NEB FS 0.5 MG/2.5 ML AMPUL.NEB NEB SCH ×8 (03:42→23:31)
--- NOTE | 2017-05-09 04:14 | NUR ---
RN NOTES 1 UNIT OF PRBC STARTED. CHECKED AND VERIFIED W/ 2ND RN. NO INITIAL REACTIONS NOTED.
[2017-05-09] MEDS: NIFEdipine (10MG) 10 MG CAPSULE GT SCH ×4 (04:19→22:25)
--- NOTE | 2017-05-09 04:19 | NUR ---
RN NOTES PROCARDIA HELD D/T PATIENT'S INABILITY TO SWALLOW CAPSULE. CHARGE NURSE AND MD AWARE. WILL CONTINUE TO MONITOR HR AND BP.
[2017-05-09] MEDS: MUPIROCIN OINT 2% 22 GM TUBE SCH ×2 (09:00→22:26)
[2017-05-09] MEDS: VANCOMYCIN 0.75 GM in IV D5W 250 ML IV SCH (09:21)
[2017-05-09] MEDS: PANTOPRAZOLE 40 MG VIAL IV SCH (09:22)
[2017-05-09] MEDS: ASPIRIN 81 MG TAB.CHEW GT SCH (09:22)
[2017-05-09] MEDS: hydrALAZINE HCL 50 MG TABLET GT SCH ×3 (09:23→17:06)
[2017-05-09] MEDS: ENOXAPARIN SODIUM 80 MG/0.8 ML DISP.SYRIN SQ SCH (09:24)
[2017-05-09] MEDS: HYDROGEL DRESSING 90 GM TUBE TP SCH (09:24)
[2017-05-09] MEDS: NITROGLYCERIN 30 GM TUBE TP SCH ×2 (09:25→22:25)
[2017-05-09 12:33] LABS: CALCIUM, SERUM 8.7 mg/dL (8.5-10.1); CARBON DIOXIDE 21 mmol/L (21-32); CHLORIDE 114 mmol/L (98-107); GLUCOSE 106 mg/dL (74-106); POTASSIUM 3.6 mmol/L (3.5-5.1); SODIUM SERUM 146 mmol/L (136-145); UREA NITROGEN, BLOOD 63 mg/dL (7-18)
[2017-05-09] MEDS: BOOST PLUS FOOD-CHOCLATE 237 ML BOX PO SCH (17:06)
--- NOTE | 2017-05-09 19:08 | NUR ---
RN CLOSING NOTE CARRIED OUT ALL MD ORDERS. PATIENT KEPT CLEAN AND DRY. ALL NEEDS ANTICIPATED. WILL GIVE REPORT TO PM RN FOR JAIR.
--- NOTE | 2017-05-09 19:30 | NUR ---
MS RN INITIAL NOTES RECEIVED PATIENT IN BED, ALSEEP AT THIS TIME, EASILY AROUSABLE TO NAME, A/0 X1, RESPONDS TO VERBAL AND TACTILE STIMULI. BREATHING EVEN AND UNLABORED, ON ROOM AIR, TOLERATING WELL, FREE FROM ANY S/S OF RSPIRATORY DISTRESS. PULSES PALPABLE. SKIN WARM TO TOUCH W/ DRESSINGS INTACT. BOWEL SOUNDS PRESENT IN ALL QUADRANTS. RIGHT UPPER ARM PICC LINE INTACT AND PATENT W/ DRESSING CDI. IV FLUIDS INFUSING PRESCRIBED, SITE FREE FROM ANY S/S OF INFILTRATION OR PHLEBITIS. MCGUIRE CATH INTACT AND DRAINING YELLOW URINE. SAFETY MEASURES IN PLACE W/ SIDE RAILS UP, BED LOCKED IN LOWEST POSITION, CALL LIGHT WITHIN REACH. WILL CONTINUE TO MONITOR.
[2017-05-09 20:43] LABS: BASOPHILS # (AUTO) 0.5 /CMM (0.0-0.2); BASOPHILS % (AUTO) 3.7 % (0.0-2.0); EOSINOPHILS # (AUTO) 0.3 /CMM (0.0-0.7); EOSINOPHILS % (AUTO) 2.3 % (0.0-6.0); HEMATOCRIT 22 % (39-51); HEMOGLOBIN 7.5 g/dL (13.5-17.5); LYMPHOCYTES # (AUTO) 1.4 /CMM (0.8-4.8); LYMPHOCYTES % (AUTO) 10.8 % (20.0-44.0); MEAN CORPUSCULAR HEMOGLOBIN 30 PG (26.0-33.0); MEAN CORPUSCULAR HGB CONC 34 g/dl (31.0-36.0); MEAN CORPUSCULAR VOLUME 89 fL (80-96); MONOCYTES # (AUTO) 0.7 /CMM (0.1-1.30); MONOCYTES % (AUTO) 5.6 % (2.0-12.0); NEUTROPHILS # (AUTO) 10.1 /CMM (1.8-8.9); NEUTROPHILS % (AUTO) 77.6 % (43.0-81.0); PLATELET COUNT (AUTO) 326 /CMM (150-450); RDW COEFFICIENT OF VARIATION 15.9 (11.5-15.0); RED BLOOD CELL COUNT(AUTO) 2.49 MIL/uL (4.5-6.0)
[2017-05-10] MEDS: METOCLOPRAMIDE HCL 10 MG/2 ML VIAL IV SCH ×4 (00:03→17:28)
[2017-05-10] MEDS: IV D5W 1,000 ML IV SCH (00:10)
[2017-05-10] MEDS: IPRATROPIUM NEB FS 0.5 MG/2.5 ML AMPUL.NEB NEB SCH ×6 (03:30→23:56)
[2017-05-10 04:00] VITALS: BP 126/81
[2017-05-10] MEDS: NIFEdipine (10MG) 10 MG CAPSULE GT SCH ×3 (05:00→20:58)
[2017-05-10 06:34] LABS: BASOPHILS % (AUTO) 0.2 % (0.0-2.0); EOSINOPHILS # (AUTO) 0.3 /CMM (0.0-0.7); EOSINOPHILS % (AUTO) 2.5 % (0.0-6.0); HEMATOCRIT 21 % (39-51); HEMOGLOBIN 7.2 g/dL (13.5-17.5); LYMPHOCYTES # (AUTO) 1.2 /CMM (0.8-4.8); LYMPHOCYTES % (AUTO) 10.3 % (20.0-44.0); MEAN CORPUSCULAR HEMOGLOBIN 31 PG (26.0-33.0); MEAN CORPUSCULAR HGB CONC 34 g/dl (31.0-36.0); MEAN CORPUSCULAR VOLUME 91 fL (80-96); MONOCYTES # (AUTO) 0.6 /CMM (0.1-1.30); NEUTROPHILS # (AUTO) 9.7 /CMM (1.8-8.9); PLATELET COUNT (AUTO) 322 /CMM (150-450); RDW COEFFICIENT OF VARIATION 17.5 (11.5-15.0); RED BLOOD CELL COUNT(AUTO) 2.35 MIL/uL (4.5-6.0); WHITE BLOOD COUNT (AUTO) 11.8 K/uL (4.3-11.0)
[2017-05-10 06:52] LABS: CALCIUM, SERUM 8.4 mg/dL (8.5-10.1); CARBON DIOXIDE 23 mmol/L (21-32); CHLORIDE 112 mmol/L (98-107); GLUCOSE 99 mg/dL (74-106); MAGNESIUM 1.9 mg/dL (1.8-2.4); POTASSIUM 3.5 mmol/L (3.5-5.1); SODIUM SERUM 144 mmol/L (136-145); UREA NITROGEN, BLOOD 57 mg/dL (7-18)
--- NOTE | 2017-05-10 07:00 | NUR ---
RN NOTES PATIENT RESTING COMFORTABLY IN BED. PATIENT ENDORSED TO THE AM SHIFT NURSE FOR JAIR
--- NOTE | 2017-05-10 07:38 | NUR ---
RN NOTES RECEIVED PT FROM NIGHT SHIT IN STABLE CONDITION, A&OX1 BUT ABLE TO FOLLOW COMMANDS. MCGUIRE CATH DRAINING TO GRAVITY, ANGELO PICC LINE DRESSING DRY AND INTACT IVF RUNNING AT 75ML/HR. CALL LIGHT WITHIN REACH, SIDE RAILS UPX3, BED LOCKED AND IN LOWEST POSITION WILL CONT TO MONITOR.
[2017-05-10 08:00] VITALS: BP 127/55
[2017-05-10] MEDS: hydrALAZINE HCL 50 MG TABLET GT SCH ×3 (08:10→17:29)
[2017-05-10] MEDS: PANTOPRAZOLE 40 MG VIAL IV SCH (08:10)
[2017-05-10] MEDS: ENOXAPARIN SODIUM 80 MG/0.8 ML DISP.SYRIN SQ SCH (08:11)
[2017-05-10] MEDS: NITROGLYCERIN 30 GM TUBE TP SCH ×2 (08:13→20:57)
[2017-05-10] MEDS: BOOST PLUS FOOD-CHOCLATE 237 ML BOX PO SCH ×2 (09:51→17:00)
[2017-05-10] MEDS: MUPIROCIN OINT 2% 22 GM TUBE SCH ×2 (09:52→21:02)
[2017-05-10] MEDS: HYDROGEL DRESSING 90 GM TUBE TP SCH (09:52)
[2017-05-10] MEDS ORDERED: EPOETIN ALFA (10,000 UNIT) 10,000 UNIT/ML VIAL SQ ONE (12:00)
[2017-05-10] MEDS: IV NS 0.9% 250 ML IV PRN (14:20)
[2017-05-10 16:00] VITALS: BP 129/60
--- NOTE | 2017-05-10 18:30 | NUR ---
RN NOTES PT RESTING IN BED, STILL SLIGHTLY CONGESTED NO SOB OR DISTRESS NOTED AT THIS TIME. ANGELO PICC LINE DRESSING DRY AND INTACT. NO SIGNIFICANT CHANGES THROUGHOUT THE SHIFT. ALL NEEDS MET, MEDICATIONS CONTINUED. PT CLEANED, TURNED, AND REPOSITIONED. SIDE RAILS UPX3, CALL LIGHT WITHIN REACH, WILL ENDORSE TO ONCOMING SHIFT.
--- NOTE | 2017-05-10 19:20 | NUR ---
RN OPEN NOTES RECEIVED PATIENT RESTING IN BED. AROUSABLE. A/O X1. NO SIGNS OF DISTRESS OR DISCOMFORT. BREATHING EVEN AND UNLABORED. ANGELO PICC LINE PATENT AND INTACT, NO SIGNS OF REDNESS OR INFILTRATION. HAS F/C INTACT, WITH CLEAR MART FLUID NOTED. BED IN LOW LOCKED POSITION WITH SIDE RAILS X3. CALL LIGHT WITHIN REACH. WILL CONTINUE TO MONITOR.
[2017-05-10 20:00] VITALS: BP 142/64
[2017-05-10] MEDS: VANCOMYCIN 0.75 GM in IV D5W 250 ML IV SCH (20:56)
[2017-05-11] MEDS: METOCLOPRAMIDE HCL 10 MG/2 ML VIAL IV SCH ×4 (00:33→17:14)
[2017-05-11] MEDS: IPRATROPIUM NEB FS 0.5 MG/2.5 ML AMPUL.NEB NEB SCH ×6 (03:22→23:27)
[2017-05-11 04:00] VITALS: BP 145/70
[2017-05-11] MEDS: NIFEdipine (10MG) 10 MG CAPSULE GT SCH ×3 (05:12→22:34)
--- NOTE | 2017-05-11 06:59 | NUR ---
RN CLOSING NOTES PATIENT RESTING IN BED. AROUSABLE. A/O X1. NO SIGNS OF DISTRESS OR DISCOMFORT. BREATHING EVEN AND UNLABORED. ANGELO PICC LINE PATENT AND INTACT, NO SIGNS OF REDNESS OR INFILTRATION. HAS F/C INTACT, WITH CLEAR MART FLUID NOTED. ALL NEEDS MET. NO SIGNIFICANT CHANGES THROUGH THE NIGHT. PATIENT KEPT CLEAN DRY AND COMFORTABLE. REPOSITIONED Q2H. BED IN LOW LOCKED POSITION WITH SIDE RAILS X3. CALL LIGHT WITHIN REACH. WILL ENDORSE TO AM SHIFT FOR JAIR.
--- NOTE | 2017-05-11 07:10 | NUR ---
MS RN NOTE: RECEIVED PATIENT RESTING IN BED, AROUSABLE TO NAME, A/O X1. ON RA, RESPIRATIONS EVEN AND UNLABORED WITH NO SOB NOTED. ANGELO PICC LINE PATENT AND INTACT. F/C DRAINING TO GRAVITY WITH YELLOW URINE. ISOLATION PRECAUTIONS IN PLACE. BED LOW, LOCKED, X2 SIDE RAILS UP AND CALL LIGHT WITHIN REACH. WILL CONT TO MONITOR.
--- NOTE | 2017-05-11 07:32 | NUR ---
MS RN NOTE: CXR TECH AT BEDSIDE.
[2017-05-11 07:34] LABS: CALCIUM, SERUM 8.9 mg/dL (8.5-10.1); CARBON DIOXIDE 24 mmol/L (21-32); CHLORIDE 110 mmol/L (98-107); CREATININE 1.9 mg/dL (0.6-1.3); GLUCOSE 98 mg/dL (74-106); POTASSIUM 3.6 mmol/L (3.5-5.1); SODIUM SERUM 143 mmol/L (136-145); UREA NITROGEN, BLOOD 51 mg/dL (7-18)
[2017-05-11 08:00] VITALS: BP 138/70
[2017-05-11] MEDS: BOOST PLUS FOOD-CHOCLATE 237 ML BOX PO SCH ×2 (08:44→17:13)
[2017-05-11] MEDS: MUPIROCIN OINT 2% 22 GM TUBE SCH ×2 (09:00→22:33)
[2017-05-11 09:33] LABS: EOSINOPHILS # (AUTO) 0.4 /CMM (0.0-0.7); EOSINOPHILS % (AUTO) 2.4 % (0.0-6.0); HEMATOCRIT 22 % (39-51); HEMOGLOBIN 7.4 g/dL (13.5-17.5); LYMPHOCYTES # (AUTO) 1.3 /CMM (0.8-4.8); LYMPHOCYTES % (AUTO) 8.8 % (20.0-44.0); MEAN CORPUSCULAR HEMOGLOBIN 30 PG (26.0-33.0); MEAN CORPUSCULAR HGB CONC 33 g/dl (31.0-36.0); MEAN CORPUSCULAR VOLUME 91 fL (80-96); MONOCYTES # (AUTO) 0.7 /CMM (0.1-1.30); MONOCYTES % (AUTO) 4.6 % (2.0-12.0); NEUTROPHILS # (AUTO) 12.6 /CMM (1.8-8.9); NEUTROPHILS % (AUTO) 84.2 % (43.0-81.0); PLATELET COUNT (AUTO) 356 /CMM (150-450); RDW COEFFICIENT OF VARIATION 16.9 (11.5-15.0); RED BLOOD CELL COUNT(AUTO) 2.45 MIL/uL (4.5-6.0); WHITE BLOOD COUNT (AUTO) 14.9 K/uL (4.3-11.0)
[2017-05-11] MEDS: hydrALAZINE HCL 50 MG TABLET GT SCH ×3 (10:04→17:14)
[2017-05-11] MEDS: PANTOPRAZOLE 40 MG TABLET.DR PO SCH (10:04)
[2017-05-11] MEDS: ENOXAPARIN SODIUM 80 MG/0.8 ML DISP.SYRIN SQ SCH (10:05)
[2017-05-11] MEDS: HYDROGEL DRESSING 90 GM TUBE TP SCH (10:05)
--- NOTE | 2017-05-11 13:07 | NUR ---
MS RN NOTE: PATIENT REFUSED PT AT BEDSIDE.
[2017-05-11 16:00] VITALS: BP 130/76
[2017-05-11] MEDS: NITROGLYCERIN 30 GM TUBE TP SCH ×2 (17:14→22:33)
[2017-05-11] MEDS: IV NS 0.9% 250 ML IV PRN (17:15)
--- NOTE | 2017-05-11 19:00 | NUR ---
MS RN NOTE: NO ACUTE CHANGES DURING SHIFT. PATIENT REMAINED A&OX1, DENIED PAIN. ANGELO PICC LINE PATENT AND INTACT. F/C PATENT AND INTACT. ORDERS CARRIED OUT. BED LOW, LOCKED, HOB ELEVATED, X2 SIDE RAILS UP, CALL LIGHT WITHIN REACH. WILL ENDORSE TO AUTOMOBILE MECHANIC RADIATOR NURSE FOR JAIR.
--- NOTE | 2017-05-11 19:30 | NUR ---
MS1/RN RECEIVE PATIENT LETHARGIC BUT RESPONSIVE TO NAME, NOT COMMUNICATIVE, PER DAY SHIFT NURSED THIS IS HIS BASELINE, APPEAR COMFORTABLE, NO SIGNS OF DISTRESS NOTED, CALL LIGHT IN REACH. WILL MONITOR.
[2017-05-11 20:00] VITALS: BP 138/53
[2017-05-12] VITALS (11 sets, daily range): BP systolic 96–149; BP diastolic 42–80
[2017-05-12] MEDS: METOCLOPRAMIDE HCL 10 MG/2 ML VIAL IV SCH ×4 (00:26→18:18)
[2017-05-12] MEDS: IPRATROPIUM NEB FS 0.5 MG/2.5 ML AMPUL.NEB NEB SCH ×6 (03:30→23:23)
[2017-05-12] MEDS: NIFEdipine (10MG) 10 MG CAPSULE GT SCH ×3 (05:00→22:09)
[2017-05-12 06:27] LABS: EOSINOPHILS # (AUTO) 0.1 /CMM (0.0-0.7); EOSINOPHILS % (AUTO) 0.6 % (0.0-6.0); HEMATOCRIT 21 % (39-51); LYMPHOCYTES # (AUTO) 0.6 /CMM (0.8-4.8); MEAN CORPUSCULAR HEMOGLOBIN 30 PG (26.0-33.0); MEAN CORPUSCULAR HGB CONC 33 g/dl (31.0-36.0); MEAN CORPUSCULAR VOLUME 91 fL (80-96); MONOCYTES # (AUTO) 0.5 /CMM (0.1-1.30); MONOCYTES % (AUTO) 2.8 % (2.0-12.0); NEUTROPHILS # (AUTO) 14.8 /CMM (1.8-8.9); NEUTROPHILS % (AUTO) 92.6 % (43.0-81.0); PLATELET COUNT (AUTO) 320 /CMM (150-450); RDW COEFFICIENT OF VARIATION 17.5 (11.5-15.0); RED BLOOD CELL COUNT(AUTO) 2.29 MIL/uL (4.5-6.0)
[2017-05-12 06:35] LABS: CARBON DIOXIDE 23 mmol/L (21-32); CHLORIDE 112 mmol/L (98-107); CREATININE 1.9 mg/dL (0.6-1.3); GLUCOSE 95 mg/dL (74-106); POTASSIUM 3.4 mmol/L (3.5-5.1); SODIUM SERUM 144 mmol/L (136-145); UREA NITROGEN, BLOOD 53 mg/dL (7-18)
[2017-05-12 06:47] LABS: HEMOGLOBIN 6.9 g/dL (13.5-17.5)
--- NOTE | 2017-05-12 07:05 | NUR ---
MS1/RN PLACED A CALL TO [facility], FOR H&H 6.05/18. LEFT MESSAGE. EXPECTING CALL BACK FROM LAUREEN GRANDA NP. ENDORSED TO NEXT RN.
--- NOTE | 2017-05-12 07:05 | NUR ---
MS RN NOTE: RECEIVED PATIENT AWAKE IN BED, A/O X1. ON 4LPM O2 VIA NC, RESPIRATIONS EVEN AND UNLABORED WITH NO SOB NOTED. ANGELO PICC LINE PATENT AND INTACT. F/C DRAINING TO GRAVITY WITH YELLOW URINE. ISOLATION PRECAUTIONS IN PLACE. BED LOW, LOCKED, X2 SIDE RAILS UP AND CALL LIGHT WITHIN REACH. WILL CONT TO MONITOR.
--- NOTE | 2017-05-12 07:10 | NUR ---
MS/RN PATIENT APPEAR SLEEPING, AROUSABLE, NO SIGNS OF DISTRESS NOTED, NO CHANGE IN CONDITION EXCEPT FOR LOW H&H. ALL NEEDS ATTENDED AT THIS TIME. WILL CONTINUE TO MONITOR.
[2017-05-12] MEDS: NITROGLYCERIN 30 GM TUBE TP SCH ×2 (09:00→22:21)
[2017-05-12] MEDS: MUPIROCIN OINT 2% 22 GM TUBE SCH (09:00)
[2017-05-12] MEDS: HYDROGEL DRESSING 90 GM TUBE TP SCH (09:00)
[2017-05-12] MEDS: hydrALAZINE HCL 50 MG TABLET GT SCH ×3 (09:00→18:25)
[2017-05-12 09:22] LABS: BAND % (MANUAL) 1 % (0.0-5.0); LYMPHOCYTES % (MANUAL) 6 % (16-48); MONOCYTES % (MANUAL) 3 % (0-11.0); NEUTROPHILS % (MANUAL) 90 (42-76)
[2017-05-12] MEDS ORDERED: POTASSIUM CHLORIDE 20 MEQ POWDER PACKET GT ONE ×3 (10:30→14:00)
[2017-05-12] MEDS ORDERED: HYDR-4077 GT (13:05)
[2017-05-12] MEDS ORDERED: NIFE10CA2 GT (13:05)
[2017-05-12] MEDS ORDERED: NITR1OIN2 TP (13:05)
[2017-05-12] MEDS: BOOST PLUS FOOD-CHOCLATE 237 ML BOX PO SCH ×2 (13:35→17:00)
[2017-05-12 18:16] LABS: BASOPHILS % (AUTO) 0.1 % (0.0-2.0); EOSINOPHILS # (AUTO) 0.1 /CMM (0.0-0.7); EOSINOPHILS % (AUTO) 1.4 % (0.0-6.0); HEMATOCRIT 22 % (39-51); HEMOGLOBIN 7.3 g/dL (13.5-17.5); LYMPHOCYTES # (AUTO) 0.9 /CMM (0.8-4.8); LYMPHOCYTES % (AUTO) 8.8 % (20.0-44.0); MEAN CORPUSCULAR HEMOGLOBIN 30 PG (26.0-33.0); MEAN CORPUSCULAR HGB CONC 33 g/dl (31.0-36.0); MEAN CORPUSCULAR VOLUME 91 fL (80-96); MONOCYTES # (AUTO) 0.5 /CMM (0.1-1.30); MONOCYTES % (AUTO) 5.1 % (2.0-12.0); NEUTROPHILS # (AUTO) 8.4 /CMM (1.8-8.9); NEUTROPHILS % (AUTO) 84.6 % (43.0-81.0); PLATELET COUNT (AUTO) 299 /CMM (150-450); RDW COEFFICIENT OF VARIATION 17.4 (11.5-15.0); RED BLOOD CELL COUNT(AUTO) 2.42 MIL/uL (4.5-6.0); WHITE BLOOD COUNT (AUTO) 9.9 K/uL (4.3-11.0)
[2017-05-12] MEDS: PANTOPRAZOLE 40 MG TABLET.DR PO SCH (18:20)
--- NOTE | 2017-05-12 19:00 | NUR ---
MS RN NOTE: NO ACUTE CHANGES DURING SHIFT. PATIENT REMAINED A&OX1, DENIED PAIN. ANGELO PICC LINE PATENT AND INTACT. F/C PATENT AND INTACT. ORDERS CARRIED OUT. BED LOW, LOCKED, HOB ELEVATED, X2 SIDE RAILS UP, CALL LIGHT WITHIN REACH. ISOLATION PRECAUTIONS IN PLACE. WILL ENDORSE TO BARREL RIFLER NURSE FOR JAIR.
[2017-05-12] MEDS ORDERED: PNEUMOCOCCAL 23-VAL P-SAC VAC 0.5 ML VIAL SQ ONE (21:00)
[2017-05-12] MEDS ORDERED: VANCOMYCIN 0.75 GM in IV D5W 250 ML IV SCH (21:00)
--- NOTE | 2017-05-12 23:15 | NUR ---
MS1/RN INITIAL NOTES RECEIVE PATIENT LETHARGIC BUT RESPONSIVE TO NAME, NOT COMMUNICATIVE, PER DAY SHIFT NURSED THIS IS HIS BASELINE, APPEAR COMFORTABLE, NO SIGNS OF DISTRESS NOTED, CALL LIGHT IN REACH. WILL MONITOR. PT SCHEDULED FOR D/C TO [facility], PER DR LOVE, ALL PAPERWORK DONE, WHEN REBECCA CHARGE NURSE CALLED FOR REPORT, [facility] WOULD NOT TAKE PT PAST 2000PM ADMITION TIME, DR COLON NOTIFIED.
--- NOTE | 2017-05-12 23:20 | NUR ---
PT WITH ORDER TO GIVE PNEUMO VAC, NADJA CALLED TO OBTAIN CONSENT
[2017-05-13] MEDS: METOCLOPRAMIDE HCL 10 MG/2 ML VIAL IV SCH ×4 (00:15→18:51)
[2017-05-13 00:33] VITALS: BP 138/76
[2017-05-13 04:00] VITALS: BP 159/62
[2017-05-13] MEDS: IPRATROPIUM NEB FS 0.5 MG/2.5 ML AMPUL.NEB NEB SCH ×6 (04:06→23:30)
[2017-05-13] MEDS: NIFEdipine (10MG) 10 MG CAPSULE GT SCH ×3 (04:46→20:51)
--- NOTE | 2017-05-13 06:40 | NUR ---
MS1/RN CLOSING NOTES ENDORSED PATIENT LETHARGIC BUT RESPONSIVE TO NAME, NOT COMMUNICATIVE, PER DAY SHIFT NURSED THIS IS HIS BASELINE, APPEAR COMFORTABLE, NO SIGNS OF DISTRESS NOTED, CALL LIGHT IN REACH. WILL MONITOR. PT SCHEDULED FOR D/C TO [place], PER DR LOVE, ALL PAPERWORK DONE, WHEN REBECCA CHARGE NURSE CALLED FOR REPORT, [facility] WOULD NOT TAKE PT PAST 2000PM ADMITION TIME, DR COLON NOTIFIED
[2017-05-13 06:41] LABS: BASOPHILS % (AUTO) 0.1 % (0.0-2.0); EOSINOPHILS # (AUTO) 0.1 /CMM (0.0-0.7); EOSINOPHILS % (AUTO) 0.8 % (0.0-6.0); HEMATOCRIT 23 % (39-51); HEMOGLOBIN 7.6 g/dL (13.5-17.5); LYMPHOCYTES # (AUTO) 1.2 /CMM (0.8-4.8); LYMPHOCYTES % (AUTO) 10.9 % (20.0-44.0); MEAN CORPUSCULAR HEMOGLOBIN 31 PG (26.0-33.0); MEAN CORPUSCULAR HGB CONC 33 g/dl (31.0-36.0); MEAN CORPUSCULAR VOLUME 92 fL (80-96); MONOCYTES # (AUTO) 0.6 /CMM (0.1-1.30); MONOCYTES % (AUTO) 5.6 % (2.0-12.0); NEUTROPHILS # (AUTO) 8.8 /CMM (1.8-8.9); NEUTROPHILS % (AUTO) 82.6 % (43.0-81.0); PLATELET COUNT (AUTO) 325 /CMM (150-450); RDW COEFFICIENT OF VARIATION 18.1 (11.5-15.0); RED BLOOD CELL COUNT(AUTO) 2.47 MIL/uL (4.5-6.0); WHITE BLOOD COUNT (AUTO) 10.7 K/uL (4.3-11.0)
[2017-05-13 07:41] LABS: CALCIUM, SERUM 8.9 mg/dL (8.5-10.1); CARBON DIOXIDE 21 mmol/L (21-32); CHLORIDE 113 mmol/L (98-107); GLUCOSE 85 mg/dL (74-106); MAGNESIUM 2.1 mg/dL (1.8-2.4); PHOSPHORUS 3.3 mg/dL (2.5-4.9); SODIUM SERUM 147 mmol/L (136-145); UREA NITROGEN, BLOOD 53 mg/dL (7-18)
[2017-05-13 08:00] VITALS: BP 121/58
[2017-05-13] MEDS: BOOST PLUS FOOD-CHOCLATE 237 ML BOX PO SCH ×2 (08:23→16:03)
[2017-05-13] MEDS: hydrALAZINE HCL 50 MG TABLET GT SCH ×3 (08:24→16:02)
[2017-05-13] MEDS: PANTOPRAZOLE 40 MG TABLET.DR PO SCH (08:24)
[2017-05-13] MEDS: NITROGLYCERIN 30 GM TUBE TP SCH ×2 (08:24→20:43)
[2017-05-13] MEDS: HYDROGEL DRESSING 90 GM TUBE TP SCH (08:25)
[2017-05-13 16:00] VITALS: BP 144/79
--- NOTE | 2017-05-13 19:00 | NUR ---
MS RN NOTE: NO ACUTE CHANGES DURING SHIFT. PATIENT REMAINED A&OX1, DENIED PAIN. ON 4LPM O2 VIA NC. ANGELO PICC LINE PATENT AND INTACT. F/C DRAINING TO GRAVITY. ISOLATION PRECAUTIONS IN PLACE. ORDERS CARRIED OUT. BED LOW, LOCKED, X2 SIDERAILS UP WITH CALL LIGHT WITHIN REACH. WILL ENDORSE TO REINFORCING IRON WORKER HELPER NURSE FOR JAIR.
--- NOTE | 2017-05-13 19:55 | NUR ---
RN INITIAL NOTES: RECEIVED REPORT FROM REBECCA RN, PT IN BED, LETHARGIC, THIS IS PT'S BASELINE, ON 4L VIA NC SATTING 94%, INFORMED RT MASON REGARDING PT'S O2 LEVEL BECAUSE HE HAS COPD, AND HE SATTED ITS OKAY LONG IT WILL KEEP PT'S SAT ABOVE 89%. PT HAS MCGUIRE CATHETER IN PLACED, ANGELO PICC LINE IN PLACED PATENT AND FLUSHING WELL, RECEIVING NS AT TKO. BLE OFFLOADED, SAFETY PRECAUTIONS FOR FALL INITIATED CALL LIGHT IN REACH,. WILL CONTINUE TO MONITOR
[2017-05-13 20:00] VITALS: BP 152/71
--- NOTE | 2017-05-13 20:15 | NUR ---
RN NOTES: PT'S CALLED STATED SHE WENT TO [facility] AND FGOUND OUT HIS NOT IN THERE, SHE STATED NOBODY TOLD HER PT IS NOT LEAVING THE HOSPITAL TODAY, EXPLAINED TO THE THAT PT ISNT ACCEPTED TO [facility] DUE TO BED AVAILABILITY FOR ISOLATION AND CASE MANAGEMENT WORKING TO LOOK FOR PLACEMENT. PT STATED TO MAKE SURE BEFORE PT GOT DC, TO CALL HER FIRST.
[2017-05-13] MEDS: ACETAMINOPHEN 650 MG/20.3 ML UDC NG PRN (20:50)
--- NOTE | 2017-05-13 20:50 | NUR ---
PRN TYLENOL: RECHECK TWEMP AND REVEAL 100.5, HR 121, PRN TYLENOL 650MG GIVEN TO PT AT THIS TIME, PT ON PUREE DIET WITH NECTAR THICK, PT AWAKE AT THIS TIME, DESIZING MACHINE OPERATOR AT BED SIDE FOR ASSISTANCE, PLACED ON HIGH DEVLIN'S POSITION, PT TAKE THE MEDICATION ALSO DUE MEDS GIVEN AT THIS TIME. KEPT PT ON ASPIRATION PRECAUTIONS, ORAL CARE PROVIDED AFTERWARD
--- NOTE | 2017-05-13 21:00 | NUR ---
RN NOTES: COOLING MEASURES PROVIDED, ALSO SCHEDULE ANALYST PROVIDED COLD BATH FOR THE PT
[2017-05-13] MEDS: IV NS 0.9% 250 ML IV PRN (22:12)
[2017-05-13 22:20] VITALS: BP 144/53
--- NOTE | 2017-05-13 22:30 | NUR ---
MS RN NOTES ON BED SLEEPING,NOT IN ANY FORM OF DISTRESS.PALE LOOKING H/H 7.02/17, AWARE.KEPT WARM AND COMFORTABLE.
--- NOTE | 2017-05-13 22:52 | NUR ---
RN NOTES: REPORT GIVEN TO DARINEL VALERIO, PT IN BED, SLEEPING, LATEST TEMP IS 99.0, APPEARS CALM AND COMFORTABLE, PT HAD ONE LARGE BM, VS STABLE, NEEDS ATTENDED, ENDORSE FOR CONTINUITY OF CARE.
[2017-05-14] MEDS: METOCLOPRAMIDE HCL 10 MG/2 ML VIAL IV SCH ×4 (00:07→17:25)
[2017-05-14] MEDS: IPRATROPIUM NEB FS 0.5 MG/2.5 ML AMPUL.NEB NEB SCH ×6 (03:30→23:14)
[2017-05-14 04:00] VITALS: BP 128/59
[2017-05-14] MEDS: NIFEdipine (10MG) 10 MG CAPSULE GT SCH ×3 (05:09→21:58)
--- NOTE | 2017-05-14 06:50 | NUR ---
MS RN NOTES PALE LOOKING,SLEPT WITH INTERVALS.IVF AT TKO RATE.REPOSITION PER PROTOCOL.POSSIBLE D/C PLAN TO [facility] FOR RE[facility].CALL LIGHT IN REACH,NEEDS ATTENDED.WILL ENDORSED TO DAY NURSE FOR JAIR. DNR/DNI STATUS.
[2017-05-14 07:25] LABS: CALCIUM, SERUM 9.3 mg/dL (8.5-10.1); CARBON DIOXIDE 23 mmol/L (21-32); CHLORIDE 116 mmol/L (98-107); CREATININE 1.9 mg/dL (0.6-1.3); GLUCOSE 100 mg/dL (74-106); POTASSIUM 3.9 mmol/L (3.5-5.1); SODIUM SERUM 148 mmol/L (136-145); UREA NITROGEN, BLOOD 54 mg/dL (7-18)
--- NOTE | 2017-05-14 07:30 | NUR ---
AM RN NOTE Received patient sleeping comfortably in his bed, no acute distress noted. On 4L/min via NC. Resp even and non-labored. ANGELO PICC line intact and patent. F/C intact. Bed in low locked position. Will continue to monitor and isolation precautions observed.
[2017-05-14 08:00] VITALS: BP 164/70
[2017-05-14] MEDS: hydrALAZINE HCL 50 MG TABLET GT SCH ×3 (09:04→16:13)
[2017-05-14] MEDS: PANTOPRAZOLE 40 MG TABLET.DR PO SCH (09:04)
[2017-05-14] MEDS: NITROGLYCERIN 30 GM TUBE TP SCH ×2 (09:05→21:58)
[2017-05-14] MEDS: BOOST PLUS FOOD-CHOCLATE 237 ML BOX PO SCH ×2 (09:12→17:25)
[2017-05-14] MEDS: HYDROGEL DRESSING 90 GM TUBE TP SCH (09:12)
[2017-05-14 11:25] LABS: BASOPHILS % (AUTO) 0.2 % (0.0-2.0); HEMATOCRIT 23 % (39-51); HEMOGLOBIN 7.6 g/dL (13.5-17.5); LYMPHOCYTES # (AUTO) 0.9 /CMM (0.8-4.8); MEAN CORPUSCULAR HEMOGLOBIN 30 PG (26.0-33.0); MEAN CORPUSCULAR HGB CONC 33 g/dl (31.0-36.0); MEAN CORPUSCULAR VOLUME 92 fL (80-96); MONOCYTES # (AUTO) 0.7 /CMM (0.1-1.30); NEUTROPHILS # (AUTO) 9.6 /CMM (1.8-8.9); NEUTROPHILS % (AUTO) 85.8 % (43.0-81.0); PLATELET COUNT (AUTO) 320 /CMM (150-450); RDW COEFFICIENT OF VARIATION 18.1 (11.5-15.0); RED BLOOD CELL COUNT(AUTO) 2.52 MIL/uL (4.5-6.0); WHITE BLOOD COUNT (AUTO) 11.2 K/uL (4.3-11.0)
[2017-05-14 16:00] VITALS: BP 116/59
[2017-05-14] MEDS: ACETAMINOPHEN 650 MG/20.3 ML UDC NG PRN (16:13)
--- NOTE | 2017-05-14 16:15 | NUR ---
AM RN NOTE Patient noted with temp 99.8, cooling measures done and PRN Tylenol given as ordered for fever. Will continue to monitor. at bedside.
--- NOTE | 2017-05-14 17:20 | NUR ---
AM RN NOTE Re-checked temp orally with 98.9 results. Cooling measures in place. Will continue to monitor. at bedside.
--- NOTE | 2017-05-14 18:13 | NUR ---
AM RN NOTE Patient resting in his bed no acute distress noted. Temp 98.7 orally. Will continue to monitor and endorse care to next shift.
--- NOTE | 2017-05-14 19:15 | NUR ---
RN MS INITIAL NOTE PT RECEIVED IN NO ACUTE DISTRESS. A/O X1 AND VERY LETHARGIC. F/C THAT IS DRY CLEAN AND DRAINING YELLOW URINE. PT HAS A ANGELO PICC LINE THAT IS DRY CLEAN AND PATENT. PT IS ON 02 TOLERATING WELL. COMFORT AND SAFETY MEASURES TO BE ENSURED DURING THE SHIFT. WILL CONTINUE TO MONITOR FOR ANY CHANGES.
[2017-05-14 20:00] VITALS: BP 138/78
[2017-05-15] MEDS: METOCLOPRAMIDE HCL 10 MG/2 ML VIAL IV SCH ×4 (00:22→17:22)
--- NOTE | 2017-05-15 01:06 | NUR ---
RN NOTE EMT FROM [facility] ARRIVED AT FACILITY STATING THAT THIS PT WOULD BE PICKED UP AND TAKEN TO [facility]. CALLED SCR AND SPOKE TO ED IN WHICH ED STATED THAT THEY WERE NOT EXPECTING THE PATIENT AT THIS TIME. WILL ENDORSE TO AM NURSE AT END OF SHIFT.
[2017-05-15] MEDS: IPRATROPIUM NEB FS 0.5 MG/2.5 ML AMPUL.NEB NEB SCH ×5 (03:31→19:25)
[2017-05-15 04:00] VITALS: BP_SYST 115; BP_SYST 143; BP_DIAS 60; BP_DIAS 74
[2017-05-15] MEDS: NIFEdipine (10MG) 10 MG CAPSULE GT SCH ×3 (04:40→21:00)
--- NOTE | 2017-05-15 05:44 | NUR ---
RN MS CLOSING NOTE PT REMAINS IN NO ACUTE DISTRESS. PT IS MORE ALERT THAN THE START OF SHIFT. ALL MEDICATIONS WERE ADMINISTERED AND TOLERATED. ALL WOUND CARE WAS CARRIED OUT AND TOLERATED WELL. WILL ENDORSE CARE TO AM NURSE.
--- NOTE | 2017-05-15 07:15 | NUR ---
RN INITIAL NOTES: REC'D PT AWAKE ON BED, NOT IN ANY DISTRESS, A/O X1. ON O2 AT 2LPM/NC, NO SOB NOTED. HAS FC PATENT & INTACT DRAINING TO ADEQUATE URINE OUTPUT. HAS ANGELO PICC LINE, FLUSHED, PATENT & INTACT W/ NO S/SX OF INFECTION/ INFILTRATION NOTED. PROVIDED COMFORT & SAFETY MEASURES. BED KEPT LOW & IN LOCKED POS. CALL LIGHT PLACED W/IN REACH. WILL CONTINUE TO MONITOR.
[2017-05-15 07:53] LABS: CALCIUM, SERUM 9.4 mg/dL (8.5-10.1); CARBON DIOXIDE 21 mmol/L (21-32); CHLORIDE 116 mmol/L (98-107); CREATININE 2.1 mg/dL (0.6-1.3); GLUCOSE 90 mg/dL (74-106); SODIUM SERUM 151 mmol/L (136-145); UREA NITROGEN, BLOOD 57 mg/dL (7-18)
[2017-05-15 08:00] VITALS: BP 148/73
[2017-05-15] MEDS: hydrALAZINE HCL 50 MG TABLET GT SCH ×3 (08:40→17:22)
[2017-05-15] MEDS: PANTOPRAZOLE 40 MG TABLET.DR PO SCH (08:41)
[2017-05-15] MEDS: Z GUARD REMEDY 2 OZ OINT TP PRN (08:41)
[2017-05-15] MEDS: HYDROGEL DRESSING 90 GM TUBE TP SCH (08:41)
[2017-05-15] MEDS: BOOST PLUS FOOD-CHOCLATE 237 ML BOX PO SCH ×2 (08:42→17:22)
[2017-05-15] MEDS: NITROGLYCERIN 30 GM TUBE TP SCH ×2 (08:43→21:00)
[2017-05-15] MEDS ORDERED: IV D5W 1,000 ML IV PRN (11:33)
--- NOTE | 2017-05-15 12:00 | NUR ---
RT NOTE: SPUTUM SAMPLE GIVEN TO LAB. RN AWARE.
[2017-05-15 16:00] VITALS: BP_SYST 159; BP_DIAS 94; BP_DIAS 99
--- NOTE | 2017-05-15 19:00 | NUR ---
RN CLOSING NOTES: NO ACUTE CHANGES NOTED W/IN SHIFT. FC KEPT PATENT & INTACT DRAINING TO ADEQUATE URINE OUTPUT. ANGELO PICC LINE, KEPT PATENT & INTACT W/ NO S/SX OF INFECTION/ INFILTRATION NOTED. KEPT WELL RESTED. NEEDS ATTENDED. BED KEPT LOW & IN LOCKED POS. CALL LIGHT PLACED W/IN REACH. STILL AWAITING DC TO [facility], NO FEEDBACK HEARD FROM CM TODAY. ENDORSED TO PM RN FOR JAIR.
[2017-05-15 20:00] VITALS: BP 117/45
--- NOTE | 2017-05-15 20:50 | NUR ---
[facility], report given to aydin at [facility]. 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 I also confirmed with Jennifer Garzon nursing supervisor frame assembly, she said it was ok since dr dalton said pt completed muciprocin 10 day course, she said its ok to transfer pt to [facility]. Also pt code status was changed by dr hawkins to DNR/DNI, the order was printed and sent with chart to [facility]
[2017-05-16] MEDS ORDERED: CEFEPIME 1 GM VIAL ONE (21:39)
[2017-05-16] MEDS ORDERED: VANCOMYCIN 1 GM VIAL ONE (22:05)
== END 2017-05-15 21:32 | DRG 870 ==
LOC: ER 16:11 → ICU 18:57 → MEDSG1 05-08 17:40
PROVIDERS: ADMIT Nurse Practitioner Acute Care; ATTEND Nurse Practitioner Acute Care
PROC: 5A1955Z Respiratory Ventilation, Greater than 96 Consecutive Hours (ICD-10-PCS; principal; 2017-04-26)
PROC: 02HV33Z Insertion of Infusion Device into Superior Vena Cava, Percutaneous Approach (ICD-10-PCS; 2017-04-26)
PROC: 02HV33Z Insertion of Infusion Device into Superior Vena Cava, Percutaneous Approach (ICD-10-PCS; 2017-04-26)
PROC: B548ZZA Ultrasonography of Superior Vena Cava, Guidance (ICD-10-PCS; 2017-04-26)
PROC: 30233N1 Transfusion of Nonautologous Red Blood Cells into Peripheral Vein, Percutaneous Approach (ICD-10-PCS; 2017-05-08)
DX: A41.9 Sepsis, unspecified organism (principal); J96.00 Acute respiratory failure, unspecified whether with hypoxia or hypercapnia; I21.4 Non-ST elevation (NSTEMI) myocardial infarction; N17.0 Acute kidney failure with tubular necrosis; E43 Unspecified severe protein-calorie malnutrition; J18.9 Pneumonia, unspecified organism; G92 Toxic encephalopathy; R65.21 Severe sepsis with septic shock; I50.33 Acute on chronic diastolic (congestive) heart failure; E87.0 Hyperosmolality and hypernatremia; I82.412 Acute embolism and thrombosis of left femoral vein; E87.2 Acidosis; I13.0 Hypertensive heart and chronic kidney disease with heart failure and stage 1 through stage 4 chronic kidney disease, or unspecified chronic kidney disease; J44.9 Chronic obstructive pulmonary disease, unspecified; I11.0 Hypertensive heart disease with heart failure; Z95.0 Presence of cardiac pacemaker; D63.8 Anemia in other chronic diseases classified elsewhere; Z86.73 Personal history of transient ischemic attack (TIA), and cerebral infarction without residual deficits; Z98.62 Peripheral vascular angioplasty status; I73.9 Peripheral vascular disease, unspecified; I72.4 Aneurysm of artery of lower extremity; I25.10 Atherosclerotic heart disease of native coronary artery without angina pectoris; Z95.1 Presence of aortocoronary bypass graft; I35.0 Nonrheumatic aortic (valve) stenosis; F01.50 Vascular dementia, unspecified severity, without behavioral disturbance, psychotic disturbance, mood disturbance, and anxiety; N18.9 Chronic kidney disease, unspecified; E78.5 Hyperlipidemia, unspecified; F09 Unspecified mental disorder due to known physiological condition; Z79.82 Long term (current) use of aspirin; E86.0 Dehydration; L53.8 Other specified erythematous conditions
CPT/HCPCS: 31720; 36415; 36569; 36600; 70450-TC; 71010-TC; 80048-TC; 80053-TC; 80061-TC; 80076-TC; 80202-TC; 81000-TC; 82272-TC; 82728-TC; 82746; 82784; 82803-TC; 82962-TC; 83540-TC; 83605-TC; 83735-TC; 84100-TC; 84155; 84165; 84439-TC; 84443-TC; 84484-TC; 85025-TC; 85396; 85730-TC; 86334; 86850-TC; 86921-TC; 87040-TC; 87070-TC; 87081-TC; 87086-TC; 87186-TC; 87400; 87449; 90732; 92526; 92611-TC; 93307-TC; 93970-TC; 93971-TC; 94002-TC; 94003-TC; 94640-TC; 94762-TC; 94799-TC; 97110-TC; 97530-TC; A4606; A6248; A6402; C1751; C9113; J0360; J0692; J0885; J1650; J2270; J2543; J2765; J2916; J3370; J3480; J3490; J7030; J7040; J7050; J7060; J7070; P9016-BL; Z7610

== ENCOUNTER 2017-05-16 20:39 | Inpatient (IN) | payer MEDICARE ==
[~2017-05-16] VITALS: Ht 175.3 cm; Wt 64.6 kg
[~2017-05-16 20:39] MED LIST: ACET-868 PO; ALBU2.5V13 IH; ALLO100T PO; AMLO5TAB4 PO; ASCO500T9 PO; ATOR10TA PO; BISA10SU8 RC; CHOL100044 PO; CLON0.1T PO; DOCU-25 PO; FERR-58 PO; FLUT16SP16 NS; HYDR-4077 GT; IPRA0.2S9 IH; LORA1TAB PO; MAGN400O6 PO; MONT10TA22 PO; NA P133E RC; NIFE10CA2 GT; NITR1OIN2 TP; PANT40TA2 PO; RISP0.253 PO; TEMA7.5C PO; VALP250C PO; VENL150C2 PO
--- NOTE | 2017-05-16 20:50 | NUR ---
[facility] "[facility]" PT NONVERBAL, RESPONSIVE TO PAINFUL STIMULA. RR EVEN AND UNLABORED. NO SOB NOTED. NAD NOTED. NO NVD AT THIS TIME. PT GOWNED AND PLACED ON MONITOR. PT NOTED WITH ANGELO TRIPLE LUMEN PICC LINE INTACT AND PATENT. NO /S INFECTION OR INFILTRATION NOTED. PT ALSO NOTED WITH SACRAL WOUND. DR. MAIER AT BEDSIDE FOR EVAL.
[2017-05-16 20:55] LABS: BASOPHILS % (AUTO) 0.2 % (0.0-2.0); EOSINOPHILS % (AUTO) 0.6 % (0.0-6.0); HEMATOCRIT 21 % (39-51); LYMPHOCYTES # (AUTO) 0.7 /CMM (0.8-4.8); LYMPHOCYTES % (AUTO) 8.3 % (20.0-44.0); MEAN CORPUSCULAR HEMOGLOBIN 30 PG (26.0-33.0); MEAN CORPUSCULAR HGB CONC 33 g/dl (31.0-36.0); MEAN CORPUSCULAR VOLUME 90 fL (80-96); MONOCYTES # (AUTO) 0.4 /CMM (0.1-1.30); MONOCYTES % (AUTO) 4.9 % (2.0-12.0); NEUTROPHILS # (AUTO) 7.2 /CMM (1.8-8.9); PLATELET COUNT (AUTO) 315 /CMM (150-450); RDW COEFFICIENT OF VARIATION 16.7 (11.5-15.0); RED BLOOD CELL COUNT(AUTO) 2.31 MIL/uL (4.5-6.0); WHITE BLOOD COUNT (AUTO) 8.3 K/uL (4.3-11.0)
--- NOTE | 2017-05-16 20:55 | NUR ---
PER , PLACED 16FR F/C, TOLERATED WELL. URINE COLLECTED. CALLED LAB FOR AGRICULTURE EXTENSION SPECIALIST.
[2017-05-16 20:59] LABS: HEMOGLOBIN 6.9 g/dL (13.5-17.5)
[2017-05-16] MEDS ORDERED: IV NS 0.9% 1,000 ML BAG IV ONE ×2 (21:00→22:00)
--- NOTE | 2017-05-16 21:00 | NUR ---
PT TO RADIOLOGY FOR HEAD CT
[2017-05-16 21:12] LABS: INR 1.12 (0.87-1.13); PROTHROMBIN TIME 11.7 SECS (9.5-12.7)
--- NOTE | 2017-05-16 21:13 | NUR ---
PT RETURNED FROM CT
[2017-05-16 21:18] LABS: APPEARANCE,URINE Clear (CLEAR); BILIRUBIN,URINE Negative (NEGATIVE); BLOOD, URINE Trace-lysed Ery/uL (NEGATIVE); COLOR,URINE Yellow (YELLOW); KETONES,URINE Negative (NEGATIVE); LEUKOCYTE ESTERASE ,URINE Moderate (NEGATIVE); NITRITE, URINE Negative (NEGATIVE); PROTEIN,URINE Trace mg/dl (NEGATIVE); UGLUCOSE Negative (NEGATIVE); UROBILINOGEN,URINE 0.2 EU/dL (0.2)
--- NOTE | 2017-05-16 21:20 | NUR ---
LAB AT BEDSIDE FOR BLOOD DRAW
[2017-05-16 21:23] LABS: ALANINE AMINOTRANSFERASE 14 U/L (12-78); ALBUMIN 1.7 g/dL (3.4-5.0); ALKALINE PHOSPHATASE 53 U/L (46-116); ASPARTATE AMINOTRANSFERASE 26 U/L (15-37); BILIRUBIN,DIRECT 0.1 mg/dL (0.0-0.2); BILIRUBIN,TOTAL 0.4 mg/dL (0.2-1.0); CALCIUM, SERUM 9.1 mg/dL (8.5-10.1); CARBON DIOXIDE 26 mmol/L (21-32); CHLORIDE 118 mmol/L (98-107); CREATININE 2.2 mg/dL (0.6-1.3); GLUCOSE 90 mg/dL (74-106); POTASSIUM 3.2 mmol/L (3.5-5.1); SODIUM SERUM 151 mmol/L (136-145); TOTAL PROTEIN, SERUM 5.7 g/dL (6.4-8.2); UREA NITROGEN, BLOOD 55 mg/dL (7-18)
[2017-05-16 21:29] LABS: BACTERIA,URINE 2+ /HPF (None Seen); SQUAMOUS EPITHELIAL CELL,UR Few /HPF (None Seen)
--- NOTE | 2017-05-16 21:37 | NUR ---
JOANNA RGAY AT BEDSIDE FOR EVAL.
[2017-05-16 21:44] LABS: TROPONIN I 3.174 ng/mL (0.00-0.056)
[2017-05-16] MEDS ORDERED: ASPIRIN 300 MG/SUPP.RECT RC STA (21:44)
[2017-05-16] MEDS ORDERED: ASPIRIN 300 MG/SUPP.RECT RC ONE (21:52)
--- NOTE | 2017-05-16 21:58 | NUR ---
PT AWAKE, EYES OPEN. MUMBLING WORDS. DR. MAIER MADE AWARE
[2017-05-16] MEDS ORDERED: VANCOMYCIN 1 GM in IV D5W 250 ML IV ONE (22:00)
[2017-05-16] MEDS ORDERED: ONDANSETRON HCL/PF 4 MG/2 ML VIAL IVP PRN (22:00)
[2017-05-16] MEDS ORDERED: CEFTRIAXONE 1GM BAG (ER ONLY) 1 GM/50 ML PIGGYBACK IV ONE (22:00)
[2017-05-16] MEDS ORDERED: IPRATROPIUM NEB FS 0.5 MG/2.5 ML AMPUL.NEB IH PRN (22:00)
[2017-05-16] MEDS ORDERED: ALBUTEROL FS 2.5 MG/0.5 ML VIAL.NEB IH PRN (22:00)
[2017-05-16] MEDS ORDERED: CEFEPIME 1 GM in IV D5W 50 ML IV ONE (22:00)
[2017-05-16] MEDS ORDERED: MORPHINE SULFATE INJ 2 MG/ML DISP.SYRIN IV PRN (22:00)
--- NOTE | 2017-05-16 22:07 | NUR ---
REPORT GIVEN TO IMAN LOPEZ. IVF TRANSFUSING. ENDORSED RN TO GIVE VANCO 1GM IVPB
[2017-05-16 22:10] VITALS: BP 155/63
--- NOTE | 2017-05-16 22:18 | NUR ---
PT TRASNFERRED FOR ACLS PROTOCOL.
[2017-05-16] MEDS ORDERED: POTASSIUM CL. PREMIX PERIPHER. 100 ML ONE (22:41)
[2017-05-16] MEDS ORDERED: CEFTRIAXONE 1 G VIAL ONE (22:42)
--- NOTE | 2017-05-16 23:00 | NUR ---
ADMISSION NOTE; A 82 YRS OLD MALE ADMITTED TO THE UNIT WITH THE DX OF AMS , PT IS AROUSABLE TO VERBAL RESPONSE, CONFUSE. BREATHING EVEN AND UNLABORED ON 2 LPM VIA NC . WITH PACEMAKER ON THE L CHEST WALL. TELE MONITOR SHOWING V-PACING WITH HR 71 . ANGELO PICC LINE INTACT AND PATENT . SKIN ASSESSMENT DONE , PHOTO TAKEN AND PLACED IN THE CHART . HGB 6.9 , WILL TRANSFUSE PRBC ORDERED . WILL TURN AND REPOSITION Q2H . WILL CONTINUE TO MONITOR .
[2017-05-16] MEDS: POTASSIUM CL. PREMIX PERIPHER. 50 ML IV SCH (23:11)
[2017-05-16 23:47] VITALS: BP 143/64
--- NOTE | 2017-05-16 23:47 | NUR ---
RN NOTE; 1 UNIT OF PRBC TRANSFUSION STARTED VIA ANGELO PICC LINE . V/S WNL , WILL MONITOR FOR TRANSFUSION REACTION .
[2017-05-16] MEDS: CEFTRIAXONE 1 G in IV D5W 50 ML IV SCH (23:53)
[2017-05-17] VITALS (10 sets, daily range): BP systolic 127–168; BP diastolic 61–80
[2017-05-17] MEDS: POTASSIUM CL. PREMIX PERIPHER. 50 ML IV SCH (00:11)
--- NOTE | 2017-05-17 02:51 | NUR ---
RN NOTE; 1 UNIT OF PRBC TRANSFUSED . V/S REMAINED STABLE , AFEBRILE . TOLERATED WELL. NO TRANSFUSION REACTION NOTED.
[2017-05-17 04:48] LABS: EOSINOPHILS % (AUTO) 0.6 % (0.0-6.0); HEMATOCRIT 24 % (39-51); HEMOGLOBIN 7.5 g/dL (13.5-17.5); LYMPHOCYTES # (AUTO) 0.8 /CMM (0.8-4.8); LYMPHOCYTES % (AUTO) 8.7 % (20.0-44.0); MEAN CORPUSCULAR HEMOGLOBIN 28 PG (26.0-33.0); MEAN CORPUSCULAR HGB CONC 31 g/dl (31.0-36.0); MEAN CORPUSCULAR VOLUME 90 fL (80-96); MONOCYTES # (AUTO) 0.6 /CMM (0.1-1.30); MONOCYTES % (AUTO) 7.4 % (2.0-12.0); NEUTROPHILS # (AUTO) 7.2 /CMM (1.8-8.9); NEUTROPHILS % (AUTO) 83.3 % (43.0-81.0); PLATELET COUNT (AUTO) 291 /CMM (150-450); RDW COEFFICIENT OF VARIATION 19.2 (11.5-15.0); RED BLOOD CELL COUNT(AUTO) 2.67 MIL/uL (4.5-6.0); WHITE BLOOD COUNT (AUTO) 8.7 K/uL (4.3-11.0)
[2017-05-17 05:11] LABS: ALANINE AMINOTRANSFERASE 16 U/L (12-78); ALBUMIN 1.7 g/dL (3.4-5.0); ALKALINE PHOSPHATASE 58 U/L (46-116); ASPARTATE AMINOTRANSFERASE 23 U/L (15-37); BILIRUBIN,TOTAL 0.5 mg/dL (0.2-1.0); CARBON DIOXIDE 23 mmol/L (21-32); CHLORIDE 122 mmol/L (98-107); GLUCOSE 94 mg/dL (74-106); MAGNESIUM 2.2 mg/dL (1.8-2.4); PHOSPHORUS 3.3 mg/dL (2.5-4.9); POTASSIUM 3.6 mmol/L (3.5-5.1); SODIUM SERUM 154 mmol/L (136-145); TOTAL PROTEIN, SERUM 5.6 g/dL (6.4-8.2); UREA NITROGEN, BLOOD 55 mg/dL (7-18)
[2017-05-17 05:25] LABS: CHOLESTEROL 108 mg/dL (<200); HDL CHOLESTEROL 30 mg/dL (40-60); LDL 70 mg/dL (0-99); THYROID STIMULATING HORMONE 1.585 uIU/mL (0.358-3.74); TRIGLYCERIDES 68 mg/dL (30-150)
[2017-05-17 05:39] LABS: IRON, SERUM 49 ug/dl (50-175); TOTAL IRON BINDING CAPACITY 96 ug/dl (250-450)
[2017-05-17] MEDS ORDERED: PANTOPRAZOLE 40 MG VIAL ONE (06:25)
[2017-05-17] MEDS: PANTOPRAZOLE 40 MG VIAL IV SCH (06:26)
--- NOTE | 2017-05-17 06:46 | NUR ---
RN EOS NOTE; PT REMAINED STABLE DURING THE SHIFT, NO ANY DISTRESS NOTED. ALL NEEDS ATTENDED PROMPTLY. TURN AND REPOSITION Q2H . TROPONIN TRENDING DOWN. POST PRBC TRANSFUSION HGB 7.5 . WILL ENDORSE TO NEXT SHIFT RN FOR CONTINUITY OF CARE.
--- NOTE | 2017-05-17 07:48 | NUR ---
RN NOTE: (INITIAL) PATIENT RECEIVED IN STABLE CONDITION AWAKE, CONFUSE, RESPONSIVE TO VERBAL & TACTILE STIMULI. ON 2LPM O2 VIA NC, BREATHING PATTERN REGULAR & UNLABORED. IV SITE ANGELO PICC LINE INTACT & DRY. ABLE TO FLUSH WITHOUT DIFFICULTY. F/C CATHETER INTACT, DRAINING WELL WITH GRAVITY. SAFETY MEASURES OBSERVED. ALL NEEDS ATTENDED. CONTINUE TO MONITOR.
[2017-05-17] MEDS ORDERED: FEE PK DOSING 1 MIN EA MC ONE (08:17)
[2017-05-17] MEDS ORDERED: ASPIRIN 300 MG/SUPP.RECT RC SCH (09:00)
[2017-05-17] MEDS ORDERED: FUROSEMIDE 20 MG/2 ML VIAL IV ONE (09:30)
[2017-05-17] MEDS: IPRATROPIUM NEB FS 0.5 MG/2.5 ML AMPUL.NEB IH SCH ×2 (15:35→19:22)
[2017-05-17] MEDS: ALBUTEROL FS 2.5 MG/0.5 ML VIAL.NEB IH SCH ×2 (15:45→19:22)
--- NOTE | 2017-05-17 19:10 | NUR ---
RN NOTES RECEIVED PT AWAKE ON BED BREATHING EVEN AND UNLABORED . NO FACIAL COMPLAINED OF PAIN. NO ACUTE RESP DISTRESS. AOX1 CONFUSED. WITH O2 2LPM VIA NC. TELE MONITOR REVEALS V-PACING HR 82 . IV SITE ON ANGELO PICC LINE INTACT AND PATENT WITH GOOD BLOOD RETURN. HOB KEPT ELEVATED ORDERED. KEPT PT CLEANED AND DRY REPOSITIONED PROTOCOL AND PRN. REDUCED PRESSURE TO BONY PROMINENCE AREA. WILL CONTINUE TO MONITOR.
[2017-05-17] MEDS ORDERED: VANCOMYCIN 0.75 GM in IV D5W 250 ML IV SCH (21:00)
[2017-05-17] MEDS: CEFTRIAXONE 1 G in IV D5W 50 ML IV SCH (21:42)
--- NOTE | 2017-05-17 23:01 | NUR ---
RN NOTES 2300 SOC R. FROM LAB CALLED FOR 05/16 BLOOD CULTURE PRELIMINARY RESULT OF GRAM POSITIVE COCCI IN CLUSTERS. ANAND BATISTA RN MADE AWARE
--- NOTE | 2017-05-17 23:10 | NUR ---
RN NOTES CALLED AND SPOKE TO DR. LORENZANA REGARDING THE PATIENT BLOOD CULTURE IS POSITIVE GRAM COCCI. PT IS ON IV VANCOMYCIN AND CEFTRIAXONE. PER MD TO CONTINUE ATB.
[2017-05-18] VITALS (7 sets, daily range): BP systolic 129–159; BP diastolic 73–86
[2017-05-18] MEDS: IPRATROPIUM NEB FS 0.5 MG/2.5 ML AMPUL.NEB IH SCH ×4 (01:07→20:10)
[2017-05-18] MEDS: ALBUTEROL FS 2.5 MG/0.5 ML VIAL.NEB IH SCH ×4 (01:07→20:10)
[2017-05-18] MEDS: PANTOPRAZOLE 40 MG VIAL IV SCH ×2 (06:23→17:09)
[2017-05-18 06:42] LABS: BASOPHILS % (AUTO) 0.1 % (0.0-2.0); EOSINOPHILS # (AUTO) 0.1 /CMM (0.0-0.7); EOSINOPHILS % (AUTO) 0.6 % (0.0-6.0); HEMATOCRIT 26 % (39-51); HEMOGLOBIN 8.7 g/dL (13.5-17.5); LYMPHOCYTES # (AUTO) 0.8 /CMM (0.8-4.8); MEAN CORPUSCULAR HEMOGLOBIN 30 PG (26.0-33.0); MEAN CORPUSCULAR HGB CONC 34 g/dl (31.0-36.0); MEAN CORPUSCULAR VOLUME 89 fL (80-96); MONOCYTES # (AUTO) 0.7 /CMM (0.1-1.30); NEUTROPHILS # (AUTO) 7.2 /CMM (1.8-8.9); NEUTROPHILS % (AUTO) 82.3 % (43.0-81.0); PLATELET COUNT (AUTO) 319 /CMM (150-450); RDW COEFFICIENT OF VARIATION 18.9 (11.5-15.0); RED BLOOD CELL COUNT(AUTO) 2.92 MIL/uL (4.5-6.0); WHITE BLOOD COUNT (AUTO) 8.7 K/uL (4.3-11.0)
--- NOTE | 2017-05-18 06:52 | NUR ---
RN NOTES PATIENT IN STABLE CONDITION MORE ALERT THAN PREVIOUS DAY. AFEBRILE. NO ACUTE RESP DISTRESS. INCONTINENT CARE RENDERED. F/C DRAINED WITH YELLOW COLOR URINE. NO STOOL ENDORSED TO AM SHIFT TO COLLECT STOOL FOR OB STOOL SAMPLE. NPO AT THIS TIME FOLLOW WITH MD FOR ANY DIET ORDER. KEPT PT CLEAN AND DRY. ENDORSED CONTINUITY OF CARE TO AM NURSE.
[2017-05-18 07:01] LABS: CALCIUM, SERUM 9.4 mg/dL (8.5-10.1); CARBON DIOXIDE 24 mmol/L (21-32); CHLORIDE 118 mmol/L (98-107); CREATININE 2.1 mg/dL (0.6-1.3); GLUCOSE 78 mg/dL (74-106); POTASSIUM 3.2 mmol/L (3.5-5.1); SODIUM SERUM 153 mmol/L (136-145); UREA NITROGEN, BLOOD 50 mg/dL (7-18)
--- NOTE | 2017-05-18 07:15 | NUR ---
RN NOTES RECEIVED PATIENT AOX1 , CONFUSED WITH DELAYED SPEECH , NOT IN ACUTE DISTRESS , RESPIRATIONS EVEN AND UNLABORED WITH SPO2 OF 97% VIA 2LPM NC , V PACING 85 ON TELE MONITOR , FC DRAINING WELL VIA GRAVITY WITH CLEAR YELLOW URINE , ANGELO PICC LINE PATENT AND INTACT SL , ALL NEEDS ATTENDED , BED ON LOW AND LOCKED POSITION , SIDE RAILS X2 ,CALL LIGHT WITHIN REACH , HOB @ 35 , WILL CONTINUE TO MONITOR
--- NOTE | 2017-05-18 09:45 | NUR ---
RN NOTES SEEN AND EVALUATED BY DR FU , DISCUSSED LABS , NO ACTIVE BLEEDING , PT ON ASPIRIN RECTAL SUPPOSITORY DISCUSSED IF HE WANTS TO CONTINUE IT , PER MD DR SAPNA BANKS THE ASPIRIN SUPP . NO EGD PLAN AT THIS TIME PER
--- NOTE | 2017-05-18 10:00 | NUR ---
RN NOTES SEEN AND EVALUATED BY SPEECH THERAPIST , PASSED SWALLOW EVAL PLACED ON PUREE WITH HONEY THICK LIQUIDS WITH NO S/S OF ASPIRATIONS .
--- NOTE | 2017-05-18 10:00 | NUR ---
RN NOTES SEEN AND EVALUATED BY ARTHUR ANTUNEZ , DISCUSSED LABS , AFEBRILE , WITH STABLE V/S , NO ACTIVE BLEEDING , MORE AWAKE BUT STILL CONFUSED , URINE OUTPUT WITHIN NORMAL LIMITS , PASSED SWALLOW MD JOSEPH AWARE
[2017-05-18] MEDS ORDERED: Z GUARD REMEDY 4 OZ OINT TP PRN (11:00)
[2017-05-18] MEDS ORDERED: HYDROGEL DRESSING 90 GM TUBE TP PRN (11:00)
--- NOTE | 2017-05-18 11:20 | NUR ---
RN NOTES SPOKE WITH DR FU CLARIFY ORDER FOR PROTONIX AND CARAFATE , PER MD START PT ON PROTONIX 40MG BID IV AND CARAFATE 1 G QID . ORDERS CARRIED OUT
[2017-05-18] MEDS: CARVEDILOL 6.25 MG TABLET PO SCH ×2 (11:39→21:45)
[2017-05-18] MEDS ORDERED: POTASSIUM CL. PREMIX PERIPHER. 50 ML IV SCH (12:00)
[2017-05-18] MEDS ORDERED: POTASSIUM CHLORIDE 20 MEQ POWDER PACKET PO ONE (12:30)
[2017-05-18] MEDS: SUCRALFATE 1 G/10 ML UDC PO SCH ×3 (12:46→21:41)
[2017-05-18] MEDS ORDERED: SILVER NITRATE APPLICATOR 1 EA BOX TP SCH (13:30)
[2017-05-18] MEDS ORDERED: LIDOCAINE MPF 1%-EPI 1:200,000 30 ML VIAL IJ ONE (14:00)
[2017-05-18] MEDS: ZOSYN IVPB 2.25 G in IV D5W 50ml IV SCH ×2 (15:12→18:41)
--- NOTE | 2017-05-18 18:58 | NUR ---
RN NOTES PATIENT RESTING IN BED AT THIS TIME , STABLE NOT IN ACUTE DISTRESS , RESPIRATIONS EVEN AND UNLABORED WITH SPO2 OF 97% VIA 2LPM NC , V PACING 89 ON TELE MONITOR , FC DRAINING WELL VIA GRAVITY WITH CLEAR YELLOW URINE , ANGELO PICC LINE PATENT AND INTACT SL , ALL NEEDS ATTENDED , BED ON LOW AND LOCKED POSITION , SIDE RAILS X2 ,CALL LIGHT WITHIN REACH , HOB @ 35 , REPORT GIVEN TO PM NURSE FOR CONTINUITY OF CARE
--- NOTE | 2017-05-18 19:15 | NUR ---
RN NOTES RECEIVED PATIENT AOX1 , CONFUSED WITH DELAYED SPEECH, RESPIRATIONS EVEN AND UNLABORED WITH SPO2 OF 97% VIA 2LPM NC. FC DRAINING WELL VIA GRAVITY WITH CLEAR COLOR YELLOW URINE , ANGELO PICC LINE PATENT AND INTACT SL , ALL NEEDS ATTENDED , BED ON LOW AND LOCKED POSITION , SIDE RAILS X2 ,CALL LIGHT WITHIN REACH , HOB @ 35 ELEVATES REPOSITIONED PT COMFORTABLE. BED LOCKED AND IN LOWEST POSSIBLE POSITION. WILL CONTINUE TO MONITOR.
[2017-05-18] MEDS: EPOETIN ALFA (10,000 UNIT) 10,000 UNIT/ML VIAL SQ SCH (21:47)
[2017-05-19] MEDS: ZOSYN IVPB 2.25 G in IV D5W 50ml IV SCH ×4 (01:06→18:08)
[2017-05-19] MEDS: ALBUTEROL FS 2.5 MG/0.5 ML VIAL.NEB IH SCH ×4 (01:16→19:58)
[2017-05-19] MEDS: IPRATROPIUM NEB FS 0.5 MG/2.5 ML AMPUL.NEB IH SCH ×4 (01:16→19:58)
[2017-05-19 04:00] VITALS: BP_SYST 138; BP_SYST 158; BP_DIAS 55; BP_DIAS 65
--- NOTE | 2017-05-19 06:37 | NUR ---
RN NOTES PATIENT REMAINED IN STABLE CONDITION AOX1 CONFUSED. RESPONSIVE TO VERBAL AND TACTILE STIMULI,. NO ASE FROM IV ATB. NO SIGNIFICANT CHANGES SHOWS. TOLERATED RA SATING >90% WITHOUT ANY RESP DISTRESS. AFEBRILE. VS WNL. KEPT CLEAN AND DRY. T/R PROTOCOL AND PRN PATIENT COMFORTABLE. WILL ENDORSED CONTINUITY OF CARE TO AM NURSE.
[2017-05-19 06:39] LABS: BASOPHILS % (AUTO) 0.1 % (0.0-2.0); EOSINOPHILS % (AUTO) 0.2 % (0.0-6.0); HEMATOCRIT 26 % (39-51); HEMOGLOBIN 8.3 g/dL (13.5-17.5); LYMPHOCYTES # (AUTO) 0.7 /CMM (0.8-4.8); LYMPHOCYTES % (AUTO) 5.8 % (20.0-44.0); MEAN CORPUSCULAR HEMOGLOBIN 29 PG (26.0-33.0); MEAN CORPUSCULAR HGB CONC 32 g/dl (31.0-36.0); MEAN CORPUSCULAR VOLUME 89 fL (80-96); MONOCYTES # (AUTO) 0.5 /CMM (0.1-1.30); MONOCYTES % (AUTO) 4.2 % (2.0-12.0); NEUTROPHILS # (AUTO) 11.5 /CMM (1.8-8.9); NEUTROPHILS % (AUTO) 89.7 % (43.0-81.0); PLATELET COUNT (AUTO) 300 /CMM (150-450); RDW COEFFICIENT OF VARIATION 18.8 (11.5-15.0); RED BLOOD CELL COUNT(AUTO) 2.87 MIL/uL (4.5-6.0); WHITE BLOOD COUNT (AUTO) 12.8 K/uL (4.3-11.0)
[2017-05-19 06:44] LABS: ALANINE AMINOTRANSFERASE 16 U/L (12-78); ALBUMIN 1.8 g/dL (3.4-5.0); ALKALINE PHOSPHATASE 62 U/L (46-116); ASPARTATE AMINOTRANSFERASE 16 U/L (15-37); BILIRUBIN,TOTAL 0.4 mg/dL (0.2-1.0); CALCIUM, SERUM 9.2 mg/dL (8.5-10.1); CARBON DIOXIDE 24 mmol/L (21-32); CHLORIDE 122 mmol/L (98-107); CREATININE 2.3 mg/dL (0.6-1.3); GLUCOSE 115 mg/dL (74-106); MAGNESIUM 2.1 mg/dL (1.8-2.4); PHOSPHORUS 3.2 mg/dL (2.5-4.9); POTASSIUM 3.3 mmol/L (3.5-5.1); UREA NITROGEN, BLOOD 53 mg/dL (7-18)
[2017-05-19 06:53] LABS: SODIUM SERUM 158 mmol/L (136-145)
--- NOTE | 2017-05-19 07:00 | NUR ---
RN NOTES ENDORSED TO NEXT SHIFT THAT SETH FROM LAB CALLED AND INFORMED ABOUT PATIENT SODIUM LEVEL OF 158 AND TO FOLLOW UP MD.
--- NOTE | 2017-05-19 07:05 | NUR ---
RN NOTES RECEIVED PATIENT ON BED, A/Ox1, CONFUSED WITH DELAYED SPEECH, RESPIRATIONS EVEN AND UNLABORED , ON 02 2L NC, NO SOB NOTED, FC DRAINING TO GRAVITY WITH CLEAR COLOR YELLOW URINE , R UA PICC LINE SITE CDI, ALL NEEDS ATTENDED , BED LOCKED AND IN LOWEST POSITION, CALL LIGHT WITHIN EASY REACH , WILL CONTINUE TO MONITOR PT CLOSELY AND NOTIFY MD FOR ANY SIGNIFICANT CHANGES
[2017-05-19 07:06] LABS: FERRITIN 438 ng/mL (8-388)
[2017-05-19 07:27] LABS: IRON, SERUM 14 ug/dl (50-175); TOTAL IRON BINDING CAPACITY 75 ug/dl (250-450)
[2017-05-19 08:00] VITALS: BP 145/71
[2017-05-19] MEDS: SUCRALFATE 1 G/10 ML UDC PO SCH ×4 (08:46→20:37)
[2017-05-19] MEDS: CARVEDILOL 6.25 MG TABLET PO SCH ×2 (08:47→20:38)
[2017-05-19] MEDS: PANTOPRAZOLE 40 MG VIAL IV SCH ×2 (08:47→16:07)
[2017-05-19] MEDS ORDERED: VANCOMYCIN 0.75 GM in IV D5W 250 ML IV SCH (10:00)
[2017-05-19] MEDS ORDERED: POTASSIUM CHLORIDE 20 MEQ POWDER PACKET PO SCH (12:00)
--- NOTE | 2017-05-19 12:00 | NUR ---
RN NOTE HOB ELEVATED , VSS STABLE , NO DISTRESS NOTED, CONTINUE TO MONITOR
[2017-05-19] MEDS: IV D5W 1,000 ML IV PRN (12:12)
--- NOTE | 2017-05-19 13:20 | NUR ---
WOUND CARE CONSULT WOUND CARE CONSULT RECEIVED. WOUND CARE WILL DEFER ASSESSMENT AND TREATMENT PLAN TO SURGICAL TEAM AT THIS TIME. PATIENT WITH CURRENT RAMESH AT 11, LOW [facility] THERAPY BED IN USE FOR SKIN/WOUND MANAGEMENT, ALL PRESSURE ULCER PREVENTION MEASURES NOTED TO BE IN PLACE. WILL SEE PRN.
[2017-05-19 16:00] VITALS: BP 138/55
--- NOTE | 2017-05-19 18:42 | NUR ---
RN NOTES PT REMAINS THE SAME , SUPPORTIVE AT THE BEDSIDE, D5W AT 70CC/HR RUNNING VIA R UPPER ARM PICC LINE, SR UP x3, CALL LIGHT WITHIN EASY REACH , NO SIGNIFICANT CHANGES NOTED ON THIS SHIFT .
[2017-05-19 20:00] VITALS: BP 144/61
--- NOTE | 2017-05-19 20:00 | NUR ---
RN INITIAL NOTE; PT ON THE BED RESTING , EASILY AROUSABLE , ALERT X 1 BUT CONFUSE. BREATHING EVEN AND UNLABORED ON ROOM AIR. PACEMAKER INTACT IN LEFT SIDE . ANGELO PICC LINE INTACT AND PATENT WITH CONTINUE IVF D5W @ 70 ML/HR , F/C INTACT AND DRAINING CLEAR YELLOW URINE. BED IN THE LOWEST /LOCKED POSITION , SAFETY MEASURES APPLIED. DENIED ANY PAIN, TURN AND REPOSITION Q2H . WILL CONTINUE OT MONITOR .
[2017-05-20] MEDS: ALBUTEROL FS 2.5 MG/0.5 ML VIAL.NEB IH SCH ×4 (01:06→20:05)
[2017-05-20] MEDS: IPRATROPIUM NEB FS 0.5 MG/2.5 ML AMPUL.NEB IH SCH ×4 (01:06→20:05)
[2017-05-20] MEDS: ZOSYN IVPB 2.25 G in IV D5W 50ml IV SCH ×4 (01:08→18:37)
[2017-05-20 04:00] VITALS: BP 155/58
[2017-05-20] MEDS: IV D5W 1,000 ML IV PRN (04:46)
--- NOTE | 2017-05-20 06:42 | NUR ---
RN EOS NOTE; PT REMAINED STABLE DURING THE SHIFT, NO ANY DISTRESS NOTED, ALL NEEDS ATTENDED PROMPTLY. IVF TOLERATED WELL. WILL ENDORSE TO NEXT SHIFT RN FOR CONTINUITY OF CARE.
[2017-05-20 06:55] LABS: EOSINOPHILS # (AUTO) 0.2 /CMM (0.0-0.7); EOSINOPHILS % (AUTO) 1.8 % (0.0-6.0); HEMATOCRIT 23 % (39-51); HEMOGLOBIN 7.6 g/dL (13.5-17.5); LYMPHOCYTES # (AUTO) 0.9 /CMM (0.8-4.8); LYMPHOCYTES % (AUTO) 6.5 % (20.0-44.0); MEAN CORPUSCULAR HEMOGLOBIN 29 PG (26.0-33.0); MEAN CORPUSCULAR HGB CONC 33 g/dl (31.0-36.0); MEAN CORPUSCULAR VOLUME 90 fL (80-96); MONOCYTES # (AUTO) 0.4 /CMM (0.1-1.30); MONOCYTES % (AUTO) 3.1 % (2.0-12.0); NEUTROPHILS # (AUTO) 11.5 /CMM (1.8-8.9); NEUTROPHILS % (AUTO) 88.6 % (43.0-81.0); PLATELET COUNT (AUTO) 255 /CMM (150-450); RDW COEFFICIENT OF VARIATION 18.6 (11.5-15.0); RED BLOOD CELL COUNT(AUTO) 2.59 MIL/uL (4.5-6.0)
[2017-05-20 07:06] LABS: CALCIUM, SERUM 8.9 mg/dL (8.5-10.1); CARBON DIOXIDE 26 mmol/L (21-32); CHLORIDE 120 mmol/L (98-107); CREATININE 2.2 mg/dL (0.6-1.3); GLUCOSE 100 mg/dL (74-106); POTASSIUM 3.3 mmol/L (3.5-5.1); SODIUM SERUM 154 mmol/L (136-145); UREA NITROGEN, BLOOD 48 mg/dL (7-18)
--- NOTE | 2017-05-20 07:40 | NUR ---
RN NOTE:(INITIAL) PT RECEIVED IN STABLE CONDITION ALERT AWAKE ORIENTED X1, WITH PERIODS OF CONFUSION. ON ROOM AIR. BREATHING PATTERN REGULAR & UNLABORED. IV SITE INTACT, PICC LINE DRESSING INTACT, ABLE TO FLUSH WITHOUT DIFFICULTY WITH GOOD BLOOD RETURN. RUNNING WITH IV FLUIDS ORDERED. F/C INTACT , DRAINING WELL WITH GRAVITY. OFFLOADED PRESSURE POINTS. SAFETY MEASURES OBSERVED. CALL LIGHT WITHIN REACH. WILL CONTINUE TO MONITOR.
[2017-05-20 08:00] VITALS: BP 123/55
[2017-05-20 08:32] VITALS: BP 123/55
[2017-05-20] MEDS: PANTOPRAZOLE 40 MG VIAL IV SCH ×2 (08:46→17:13)
[2017-05-20] MEDS: FERROUS SULFATE UDC 300 MG/5 ML UDC PO SCH (08:46)
[2017-05-20] MEDS: SUCRALFATE 1 G/10 ML UDC PO SCH ×4 (08:46→20:32)
[2017-05-20] MEDS: CARVEDILOL 6.25 MG TABLET PO SCH ×2 (08:47→20:36)
[2017-05-20] MEDS: POTASSIUM CL. PREMIX PERIPHER. 50 ML IV SCH ×4 (09:44→15:09)
[2017-05-20] MEDS ORDERED: POTASSIUM CL. PREMIX PERIPHER. 50 ML IV SCH (10:17)
--- NOTE | 2017-05-20 13:00 | NUR ---
RN NOTE: WOUND DEBRIDEMENT WOUND DEBRIDEMENT DONE SACRUM AT BEDSIDE BY [employer] APARTMENT RENTAL CLERK, LOCAL GIVEN BY HER. APPLIED DRESSING WITH BETADINE & NS, SILVER NITRATE APPLICATION ALSO APPLIED BY HER. DRESSING INTACT & SECURE WITH TAPE. CONTINUE TO MONITOR & TURN & REPOSITION.
[2017-05-20] MEDS: EPOETIN ALFA (10,000 UNIT) 10,000 UNIT/ML VIAL SQ SCH (15:09)
[2017-05-20 16:00] VITALS: BP 139/56
[2017-05-20] MEDS: BOOST FOOD- BERRY 237 ML BOX PO SCH (17:00)
[2017-05-20] MEDS ORDERED: BARIUM SULFATE 240 ML ORAL.SUSP PO ONE (17:09)
[2017-05-20] MEDS ORDERED: BARIUM SULFATE 148 GM SUSP.RECON PO ONE (17:09)
[2017-05-20 17:35] LABS: HEMOGLOBIN 8.1 g/dL (13.5-17.5)
--- NOTE | 2017-05-20 18:19 | NUR ---
RN NOTES: PM CARE PROVIDED. REINFORCED SACRUM DRESSING ACC TO MOY MARSHALL, WILL CHANGE TOMORROW. PT IS ALREADY ON ISOFLEX MATTRESS. WILL CANCEL [facility] MATTRESS ORDER BY MOY MARSHALL.
--- NOTE | 2017-05-20 19:30 | NUR ---
RN NOTES: -RECEIVED ASLEEP ON BED, SEMI FOWLERS POSITION HIS SON SITTING AT BED SIDE, EASILY AROUSAL, RESPOND WHEN NAME IS CALLED,, NO SIGN OF SOB OR RESPIRATORY DISTRESS NOTED, ON O2 AT 2L/MIN VIA NC.ANGELO PICC LINE PATENT WITH IVF OF D5W AT 70 ML/HR,FC IN PLACE DRAINING INTO YELLOWISH COLORED URINE, CALL LIGHT WITHIN EASY REACH, BED LOW AND LOCKED, FALL,SAFETY AND ASPIRATION PRECAUTION OBSERVE, ON CLOSE WATCH.TURNING AND REPOSITIONING Q2H.
[2017-05-20 20:00] VITALS: BP 133/60
[2017-05-20] MEDS ORDERED: VANCOMYCIN 1 GM in IV D5W 250 ML IV SCH (22:00)
[2017-05-21] MEDS: ZOSYN IVPB 2.25 G in IV D5W 50ml IV SCH ×4 (00:11→18:20)
[2017-05-21] MEDS: IV D5W 1,000 ML IV PRN ×2 (00:11→15:44)
[2017-05-21] MEDS: ALBUTEROL FS 2.5 MG/0.5 ML VIAL.NEB IH SCH ×4 (01:16→19:36)
[2017-05-21] MEDS: IPRATROPIUM NEB FS 0.5 MG/2.5 ML AMPUL.NEB IH SCH ×4 (01:16→19:36)
--- NOTE | 2017-05-21 03:00 | NUR ---
RN NOTES: PATIENT ASLEEP MOST OF THE TIME,TURNING DONE,NO PAIN OR DISCOMFORT,KEPT ON CLOSE WATCH. CALLS AND NEEDS ATTENDED.
[2017-05-21 04:00] VITALS: BP 141/64
[2017-05-21 07:06] LABS: BASOPHILS % (AUTO) 0.2 % (0.0-2.0); EOSINOPHILS # (AUTO) 0.4 /CMM (0.0-0.7); EOSINOPHILS % (AUTO) 2.9 % (0.0-6.0); HEMATOCRIT 25 % (39-51); HEMOGLOBIN 7.7 g/dL (13.5-17.5); LYMPHOCYTES # (AUTO) 1.1 /CMM (0.8-4.8); LYMPHOCYTES % (AUTO) 8.3 % (20.0-44.0); MEAN CORPUSCULAR HEMOGLOBIN 28 PG (26.0-33.0); MEAN CORPUSCULAR HGB CONC 31 g/dl (31.0-36.0); MEAN CORPUSCULAR VOLUME 90 fL (80-96); MONOCYTES # (AUTO) 0.5 /CMM (0.1-1.30); MONOCYTES % (AUTO) 3.5 % (2.0-12.0); NEUTROPHILS # (AUTO) 10.9 /CMM (1.8-8.9); NEUTROPHILS % (AUTO) 85.1 % (43.0-81.0); PLATELET COUNT (AUTO) 245 /CMM (150-450); RED BLOOD CELL COUNT(AUTO) 2.73 MIL/uL (4.5-6.0); WHITE BLOOD COUNT (AUTO) 12.8 K/uL (4.3-11.0)
--- NOTE | 2017-05-21 07:20 | NUR ---
RN MS NOTES PATIENT ASLEEP, AROUSABLE EASILY, RESPONSIVE TO NAME, SON AT BEDSIDE, NO SIGN OF SOB OR RESPIRATORY DISTRESS NOTED, ON O2 AT 2L/MIN VIA NC. ANGELO PICC LINE PATENT WITH IVF OF D5W AT 70 ML/HR, FC IN PLACE DRAINING YELLOW COLORED URINE, CALL LIGHT WITHIN EASY REACH, BED LOW AND LOCKED, FALL,SAFETY AND ASPIRATION PRECAUTION OBSERVE, WILL CONTINUE TO MONITOR.
--- NOTE | 2017-05-21 07:30 | NUR ---
RN NOTES: ASLEEP ON BED,BLOOD TEST DONE, CALL LIGHT WITH IN EASY REACH, ENDORSED FOR CONTINUITY OF CARE,FOR NPO 12 MN AND FOR ENDOSCOPY TOMORROW 05/22/2017.
[2017-05-21 07:34] LABS: CALCIUM, SERUM 9.1 mg/dL (8.5-10.1); CREATININE 2.2 mg/dL (0.6-1.3); GLUCOSE 92 mg/dL (74-106); UREA NITROGEN, BLOOD 45 mg/dL (7-18)
[2017-05-21 07:52] LABS: CARBON DIOXIDE 25 mmol/L (21-32); CHLORIDE 116 mmol/L (98-107); POTASSIUM 3.8 mmol/L (3.5-5.1); SODIUM SERUM 149 mmol/L (136-145)
[2017-05-21 08:00] VITALS: BP 144/57
[2017-05-21] MEDS: CARVEDILOL 6.25 MG TABLET PO SCH ×2 (09:32→21:07)
[2017-05-21] MEDS: PANTOPRAZOLE 40 MG VIAL IV SCH ×2 (09:32→16:03)
[2017-05-21] MEDS: SUCRALFATE 1 G/10 ML UDC PO SCH ×4 (09:32→21:07)
[2017-05-21] MEDS: FERROUS SULFATE UDC 300 MG/5 ML UDC PO SCH (09:32)
[2017-05-21] MEDS: DAKINS QUARTER STRENGTH (0.125%) 480 ML BOTTLE TOP SCH (09:38)
[2017-05-21] MEDS: BOOST FOOD- BERRY 237 ML BOX PO SCH ×2 (11:12→16:00)
[2017-05-21 16:00] VITALS: BP 138/46
--- NOTE | 2017-05-21 18:52 | NUR ---
RN MS NOTES PATIENT ALERT AND ORIENTED X1 CONFUSED AT TIMES, NO S/SX OF ANY DISTRESS, BREATHING UNLABORED, ABLE TO TOLERATE MEALS, ASPIRATION PRECAUTION OBSERVED AT ALL TIMES, TURNED AND REPOSITIONED EVERY 2 HOURS AND PRN, WOUND TREATMENT RENDERED ORDERED, DRESSING CHANGED, CODE STATUS CHANGED TO DNR/DNI PER FAMILY'S REQUEST, ALL DUE MEDICATIONS GIVEN, OFFERED BOOST BUT PATIENT IS REFUSING, NEEDS ATTENDED AND ANTICIPATED, HOB ELEVATED AT ALL TIMES, SAFETY PRECAUTIONS OBSERVED, CALL LIGHT WITHIN REACH, WILL ENDORSE TO CATTERY OPERATOR FOR JAIR.
--- NOTE | 2017-05-21 19:35 | NUR ---
MS RN INITIAL NOTE RECEIVED PT IN BED. A/O X1 WITH EPISODES OF CONFUSION NOTED. ON 2L OF O2 VIA NASAL CANNULA AND SATURATING 100%. BREATHING REGULAR, EVEN AND UNLABORED. IV ANGELO PICC CLEAN, INTACT WITH D5W RUNNING AT THIS TIME. PT WILL BE NPO AT MIDNIGHT FOR PROCEDURE IN THE MORNING. MCGUIRE CATHETER IN PLACE AND DRAINING BY GRAVITY CLEAR/YELLOW URINE. ASPIRATION PRECAUTIONS OBSERVED AND MAINTAINED. CALL LIGHT WITHIN REACH. WILL CONTINUE TO MONITOR.
[2017-05-21 20:00] VITALS: BP 155/43
[2017-05-22] MEDS: ZOSYN IVPB 2.25 G in IV D5W 50ml IV SCH ×4 (00:18→18:35)
[2017-05-22] MEDS: ALBUTEROL FS 2.5 MG/0.5 ML VIAL.NEB IH SCH ×4 (01:03→20:08)
[2017-05-22] MEDS: IPRATROPIUM NEB FS 0.5 MG/2.5 ML AMPUL.NEB IH SCH ×4 (01:03→20:08)
[2017-05-22 04:00] VITALS: BP 150/59
[2017-05-22 06:31] LABS: EOSINOPHILS # (AUTO) 0.3 /CMM (0.0-0.7); EOSINOPHILS % (AUTO) 1.4 % (0.0-6.0); HEMATOCRIT 26 % (39-51); HEMOGLOBIN 8.3 g/dL (13.5-17.5); LYMPHOCYTES # (AUTO) 1.1 /CMM (0.8-4.8); MEAN CORPUSCULAR HEMOGLOBIN 29 PG (26.0-33.0); MEAN CORPUSCULAR HGB CONC 32 g/dl (31.0-36.0); MEAN CORPUSCULAR VOLUME 91 fL (80-96); MONOCYTES # (AUTO) 0.2 /CMM (0.1-1.30); MONOCYTES % (AUTO) 0.9 % (2.0-12.0); NEUTROPHILS # (AUTO) 16.7 /CMM (1.8-8.9); NEUTROPHILS % (AUTO) 91.7 % (43.0-81.0); PLATELET COUNT (AUTO) 265 /CMM (150-450); WHITE BLOOD COUNT (AUTO) 18.2 K/uL (4.3-11.0)
[2017-05-22 06:52] LABS: ALANINE AMINOTRANSFERASE 16 U/L (12-78); ALBUMIN 1.6 g/dL (3.4-5.0); ALKALINE PHOSPHATASE 56 U/L (46-116); ASPARTATE AMINOTRANSFERASE 15 U/L (15-37); BILIRUBIN,TOTAL 0.4 mg/dL (0.2-1.0); CALCIUM, SERUM 8.7 mg/dL (8.5-10.1); CARBON DIOXIDE 25 mmol/L (21-32); CHLORIDE 113 mmol/L (98-107); CREATININE 2.1 mg/dL (0.6-1.3); GLUCOSE 107 mg/dL (74-106); MAGNESIUM 1.9 mg/dL (1.8-2.4); PHOSPHORUS 2.3 mg/dL (2.5-4.9); POTASSIUM 3.8 mmol/L (3.5-5.1); SODIUM SERUM 146 mmol/L (136-145); TOTAL PROTEIN, SERUM 5.7 g/dL (6.4-8.2); UREA NITROGEN, BLOOD 41 mg/dL (7-18)
--- NOTE | 2017-05-22 07:43 | NUR ---
MS RN CLOSING NOTE PT REMAINED STABLE DURING SHIFT. NO ACUTE DISTRESS NOTED. NPO STATUS MAINTAINED AFTER MIDNIGHT. KEPT CLEAN AND DRY. REPOSITIONED Q2H. ALL NEEDS ATTENDED TO AND MET PROMPTLY. IV IN PLACE AND PATENT WITH FLUIDS RUNNING. MCGUIRE CATHETER IN PLACE. TREATMENT PERFORMED ORDERED. CALL LIGHT WITHIN REACH. ASPIRATION PRECAUTIONS OBSERVED. PRE-OP CHECKLIST DONE FOR ENDOSCOPY TODAY. WILL ENDORSE TO NEXT SHIFT FOR CONTINUITY OF CARE.
[2017-05-22 08:00] VITALS: BP 133/60
[2017-05-22] MEDS: BOOST FOOD- BERRY 237 ML BOX PO SCH ×2 (08:00→17:00)
[2017-05-22] MEDS: DAKINS QUARTER STRENGTH (0.125%) 480 ML BOTTLE TOP SCH (09:00)
[2017-05-22] MEDS: SUCRALFATE 1 G/10 ML UDC PO SCH ×4 (09:00→20:42)
[2017-05-22] MEDS: FERROUS SULFATE UDC 300 MG/5 ML UDC PO SCH (09:00)
[2017-05-22] MEDS: CARVEDILOL 6.25 MG TABLET PO SCH ×2 (10:35→20:42)
[2017-05-22] MEDS: PANTOPRAZOLE 40 MG VIAL IV SCH ×2 (10:35→17:40)
[2017-05-22 12:00] VITALS: BP 128/60
[2017-05-22] MEDS ORDERED: NEUTRA PHOS 1 POWD.PACKET NG ONE (13:00)
[2017-05-22 16:00] VITALS: BP 140/60
--- NOTE | 2017-05-22 19:05 | NUR ---
RN OPENING NOTES RECEIVED REPORT FROM AM RN. PATIENT A&O X1 W/ CONFUSION, UNABLE TO MAKE NEEDS KNOWN. BREATHING EVEN AND UNLABORED, ON O2 2L VIA NC. NO RESPIRATORY DISTRESS NOTED. PULSES PRESENT. SKIN WARM TO TOUCH. RIGHT UPPER ARM PICC LINE PATENT W/ DRESSING CDI. MCGUIRE CATH INTACT AND DRAINING YELLOW URINE. NO S/S OF PAIN OR DISCOMFORT @ THIS TIME. SAFETY MEASURES IN PLACE W/ SIDE RAILS UP, BED LOCKED IN LOWEST POSITION. WILL CONTINUE TO MONITOR.
[2017-05-22 20:00] VITALS: BP 140/57
[2017-05-23] MEDS: ZOSYN IVPB 2.25 G in IV D5W 50ml IV SCH ×4 (00:13→19:19)
[2017-05-23] MEDS: IPRATROPIUM NEB FS 0.5 MG/2.5 ML AMPUL.NEB IH SCH ×4 (01:51→20:11)
[2017-05-23] MEDS: ALBUTEROL FS 2.5 MG/0.5 ML VIAL.NEB IH SCH ×4 (01:51→20:11)
[2017-05-23 04:00] VITALS: BP 150/69
[2017-05-23 06:48] LABS: EOSINOPHILS # (AUTO) 0.2 /CMM (0.0-0.7); EOSINOPHILS % (AUTO) 1.6 % (0.0-6.0); HEMATOCRIT 24 % (39-51); HEMOGLOBIN 7.7 g/dL (13.5-17.5); LYMPHOCYTES % (AUTO) 6.4 % (20.0-44.0); MEAN CORPUSCULAR HEMOGLOBIN 29 PG (26.0-33.0); MEAN CORPUSCULAR HGB CONC 32 g/dl (31.0-36.0); MEAN CORPUSCULAR VOLUME 90 fL (80-96); MONOCYTES # (AUTO) 0.5 /CMM (0.1-1.30); MONOCYTES % (AUTO) 3.1 % (2.0-12.0); NEUTROPHILS # (AUTO) 13.3 /CMM (1.8-8.9); NEUTROPHILS % (AUTO) 88.9 % (43.0-81.0); PLATELET COUNT (AUTO) 231 /CMM (150-450); RDW COEFFICIENT OF VARIATION 18.7 (11.5-15.0); RED BLOOD CELL COUNT(AUTO) 2.68 MIL/uL (4.5-6.0); WHITE BLOOD COUNT (AUTO) 14.9 K/uL (4.3-11.0)
[2017-05-23 07:06] LABS: CALCIUM, SERUM 8.7 mg/dL (8.5-10.1); CARBON DIOXIDE 22 mmol/L (21-32); CHLORIDE 114 mmol/L (98-107); GLUCOSE 75 mg/dL (74-106); POTASSIUM 3.5 mmol/L (3.5-5.1); SODIUM SERUM 147 mmol/L (136-145); UREA NITROGEN, BLOOD 37 mg/dL (7-18)
--- NOTE | 2017-05-23 07:30 | NUR ---
RN OPENING NOTES RECEIVED PATIENT IN BED ASLEEP, AROUSES EASILY. HOB ELEVATED, ALERT AND ORIENTED X1 WITH CONFUSION. NO ACUTE DISTRESS, NO SOB NOTED, DENIES PAIN AT THE MOMENT. ANGELO PICC LINE INTACT AND PATENT. ASPIRATION PRECAUTIONS OBSERVED. KEPT PATIENT SAFE AND COMFORTABLE. BED IN LOCKED, LOW POSITION, SIDERAILS UPX2. CALL LIGHT IN REACH. WILL CONTINUE TO MONITOR ACCORDINGLY.
[2017-05-23 08:00] VITALS: BP 126/72
[2017-05-23] MEDS: CARVEDILOL 6.25 MG TABLET PO SCH ×2 (08:48→21:21)
[2017-05-23] MEDS: SUCRALFATE 1 G/10 ML UDC PO SCH ×4 (08:49→21:21)
[2017-05-23] MEDS: FERROUS SULFATE UDC 300 MG/5 ML UDC PO SCH (08:49)
[2017-05-23] MEDS: BOOST FOOD- BERRY 237 ML BOX PO SCH ×2 (08:51→16:38)
[2017-05-23] MEDS: DAKINS QUARTER STRENGTH (0.125%) 480 ML BOTTLE TOP SCH (09:00)
[2017-05-23] MEDS: PANTOPRAZOLE 40 MG VIAL IV SCH ×2 (09:00→16:39)
[2017-05-23 16:00] VITALS: BP 140/59
[2017-05-23] MEDS: EPOETIN ALFA (10,000 UNIT) 10,000 UNIT/ML VIAL SQ SCH (16:28)
--- NOTE | 2017-05-23 19:25 | NUR ---
RN MS INITIAL NOTE PT RECEIVED IN NO ACUTE DISTRESS. A/O X1 AND CONFUSED WITH SWALLOW PRECAUTIONS. PT HAS A MCGUIRE CATH THAT IS DRAINING URINE AND CLEAN DRY. ANGELO PICC LINE THAT IS DRY AND INTACT. WILL ENSURE COMFORT AND SAFETY. WILL CONTINUE TO MONITOR FOR ANY CHANGES DURING THE SHIFT.
--- NOTE | 2017-05-23 19:25 | NUR ---
RN CLOSING NOTES NO CHANGE IN PATIENT'S CONDITION. NO ACUTE DISTRESS, NO SOB NOTED. DENIES PAIN OR DISCOMFORT. ALL NEEDS ATTENDED AND PROVIDED. KEPT PATIENT SAFE AND COMFORTABLE. BED IN LOW POSITION, LOCKED, SIDERAILS UP X2. CALL LIGHT IN REACH. ENDORSED TO NIGHT RN FOR JAIR.
[2017-05-23 20:00] VITALS: BP_SYST 111; BP_DIAS 57; BP_DIAS 73
[2017-05-24] MEDS: ALBUTEROL FS 2.5 MG/0.5 ML VIAL.NEB IH SCH ×4 (01:08→19:58)
[2017-05-24] MEDS: IPRATROPIUM NEB FS 0.5 MG/2.5 ML AMPUL.NEB IH SCH ×4 (01:08→19:59)
[2017-05-24] MEDS: ZOSYN IVPB 2.25 G in IV D5W 50ml IV SCH ×4 (01:08→18:07)
[2017-05-24 04:00] VITALS: BP 122/56
--- NOTE | 2017-05-24 07:10 | NUR ---
MS RN NOTE: RECEIVED PT RESTING IN BED, EASILY AROUSABLE TO NAME. A&OX1 WITH CONFUSION, DENIES PAIN. ON 2LPM O2 VIA NC, RESPIRATIONS EVEN AND UNLABORED WITH NO SOB NOTED. ANGELO PICC LINE PATENT AND INTACT. MCGUIRE CATH DRAINING TO GRAVITY WITH CLEAR YELLOW URINE. SWALLOW PRECAUTIONS IN PLACE WITH HOB ELEVATED. BED LOW, LOCKED, X2 SIDE RAILS UP WITH CALL LIGHT WITHIN REACH. WILL CONT TO MONITOR.
[2017-05-24 07:28] LABS: EOSINOPHILS # (AUTO) 0.2 /CMM (0.0-0.7); EOSINOPHILS % (AUTO) 1.6 % (0.0-6.0); HEMATOCRIT 24 % (39-51); HEMOGLOBIN 7.8 g/dL (13.5-17.5); MEAN CORPUSCULAR HEMOGLOBIN 29 PG (26.0-33.0); MEAN CORPUSCULAR HGB CONC 32 g/dl (31.0-36.0); MEAN CORPUSCULAR VOLUME 89 fL (80-96); MONOCYTES # (AUTO) 0.5 /CMM (0.1-1.30); MONOCYTES % (AUTO) 3.7 % (2.0-12.0); NEUTROPHILS # (AUTO) 11.1 /CMM (1.8-8.9); NEUTROPHILS % (AUTO) 86.7 % (43.0-81.0); PLATELET COUNT (AUTO) 248 /CMM (150-450); RDW COEFFICIENT OF VARIATION 18.3 (11.5-15.0); RED BLOOD CELL COUNT(AUTO) 2.73 MIL/uL (4.5-6.0); WHITE BLOOD COUNT (AUTO) 12.8 K/uL (4.3-11.0)
[2017-05-24 07:38] LABS: CALCIUM, SERUM 8.5 mg/dL (8.5-10.1); CARBON DIOXIDE 23 mmol/L (21-32); CHLORIDE 115 mmol/L (98-107); CREATININE 1.9 mg/dL (0.6-1.3); GLUCOSE 82 mg/dL (74-106); POTASSIUM 3.2 mmol/L (3.5-5.1); SODIUM SERUM 148 mmol/L (136-145); UREA NITROGEN, BLOOD 33 mg/dL (7-18)
[2017-05-24 08:00] VITALS: BP_SYST 126; BP_SYST 148; BP_DIAS 60; BP_DIAS 68
[2017-05-24] MEDS: BOOST FOOD- BERRY 237 ML BOX PO SCH ×2 (08:00→16:55)
[2017-05-24] MEDS: DAKINS QUARTER STRENGTH (0.125%) 480 ML BOTTLE TOP SCH (09:00)
[2017-05-24] MEDS: SUCRALFATE 1 G/10 ML UDC PO SCH ×4 (10:24→21:46)
[2017-05-24] MEDS: PANTOPRAZOLE 40 MG VIAL IV SCH ×2 (10:24→16:55)
[2017-05-24] MEDS: FERROUS SULFATE UDC 300 MG/5 ML UDC PO SCH (10:24)
[2017-05-24] MEDS: CARVEDILOL 6.25 MG TABLET PO SCH ×2 (10:25→21:46)
[2017-05-24] MEDS ORDERED: POTASSIUM CHLORIDE 10 MEQ TABLET.SA PO ONE (12:00)
[2017-05-24 16:00] VITALS: BP 161/77
--- NOTE | 2017-05-24 19:00 | NUR ---
MS RN NOTE: NO ACUTE CHANGES DURING SHIFT. PT REMAINED A&OX1 WITH CONFUSION, DENIES PAIN. ON 2LPM O2 VIA NC. ANGELO PATENT AND INTACT. MCGUIRE CATH DRAINING TO GRAVITY. SWALLOW PRECAUTIONS IN PLACE WITH HOB ELEVATED. BED LOW, LOCKED, X2 SIDE RAILS UP AND CALL LIGHT WITHIN REACH. ORDERS CARRIED OUT. WILL ENDORSE TO FABRIC DESIGNER NURSE FOR JAIR.
[2017-05-24 20:00] VITALS: BP 148/49
[2017-05-25] VITALS: BP 148/49
[2017-05-25] MEDS: ZOSYN IVPB 2.25 G in IV D5W 50ml IV SCH ×3 (00:19→12:07)
[2017-05-25] MEDS: ALBUTEROL FS 2.5 MG/0.5 ML VIAL.NEB IH SCH ×3 (01:36→13:31)
[2017-05-25] MEDS: IPRATROPIUM NEB FS 0.5 MG/2.5 ML AMPUL.NEB IH SCH ×3 (01:36→13:31)
[2017-05-25 04:00] VITALS: BP 140/62
--- NOTE | 2017-05-25 05:51 | NUR ---
RN MS CLOSING NOTE PT REMAINS IN NO ACUTE DISTRESS. ALL DUE ORDERS WERE CARRIED OUT. F/C DRAINING URINE CURRENTLY. COMFORT AND SAFETY MEASURES WERE ENSURED DURING THE SHIFT. WILL ENDORSE CARE TO AM NURSE.
[2017-05-25 06:28] LABS: BASOPHILS % (AUTO) 0.1 % (0.0-2.0); EOSINOPHILS # (AUTO) 0.1 /CMM (0.0-0.7); EOSINOPHILS % (AUTO) 1.1 % (0.0-6.0); HEMATOCRIT 26 % (39-51); HEMOGLOBIN 8.2 g/dL (13.5-17.5); LYMPHOCYTES # (AUTO) 1.1 /CMM (0.8-4.8); LYMPHOCYTES % (AUTO) 9.6 % (20.0-44.0); MEAN CORPUSCULAR HEMOGLOBIN 29 PG (26.0-33.0); MEAN CORPUSCULAR HGB CONC 32 g/dl (31.0-36.0); MEAN CORPUSCULAR VOLUME 90 fL (80-96); MONOCYTES # (AUTO) 0.7 /CMM (0.1-1.30); MONOCYTES % (AUTO) 5.9 % (2.0-12.0); NEUTROPHILS # (AUTO) 9.6 /CMM (1.8-8.9); NEUTROPHILS % (AUTO) 83.3 % (43.0-81.0); PLATELET COUNT (AUTO) 253 /CMM (150-450); RDW COEFFICIENT OF VARIATION 18.3 (11.5-15.0); RED BLOOD CELL COUNT(AUTO) 2.87 MIL/uL (4.5-6.0); WHITE BLOOD COUNT (AUTO) 11.5 K/uL (4.3-11.0)
[2017-05-25 06:31] LABS: CALCIUM, SERUM 8.5 mg/dL (8.5-10.1); CARBON DIOXIDE 22 mmol/L (21-32); CHLORIDE 114 mmol/L (98-107); CREATININE 1.9 mg/dL (0.6-1.3); GLUCOSE 85 mg/dL (74-106); POTASSIUM 3.4 mmol/L (3.5-5.1); SODIUM SERUM 148 mmol/L (136-145); UREA NITROGEN, BLOOD 30 mg/dL (7-18)
[2017-05-25 08:00] VITALS: BP 155/74
[2017-05-25] MEDS: SUCRALFATE 1 G/10 ML UDC PO SCH ×2 (08:09→12:06)
[2017-05-25] MEDS: FERROUS SULFATE UDC 300 MG/5 ML UDC PO SCH (08:09)
[2017-05-25] MEDS: CARVEDILOL 6.25 MG TABLET PO SCH (08:10)
[2017-05-25] MEDS: DAKINS QUARTER STRENGTH (0.125%) 480 ML BOTTLE TOP SCH (08:10)
[2017-05-25] MEDS: PANTOPRAZOLE 40 MG VIAL IV SCH (08:10)
[2017-05-25] MEDS: BOOST FOOD- BERRY 237 ML BOX PO SCH (08:10)
[2017-05-25] MEDS ORDERED: PIPE2.255 IV (10:22)
[2017-05-25] MEDS ORDERED: POTASSIUM CHLORIDE 10 MEQ TABLET.SA PO ONE (11:00)
[2017-05-25 15:00] VITALS: BP 133/66
[2017-05-25] MEDS: EPOETIN ALFA (10,000 UNIT) 10,000 UNIT/ML VIAL SQ SCH (15:01)
--- NOTE | 2017-05-25 15:20 | NUR ---
DISCHARGE NOTE ORDER FOR DISCHARGE BY DR. WARE, ARRANGED BY CASE MANAGEMENT [facility] EDUCATION PROVIDED TO PATIENT BUT HE IS UNABLE TO VERBALIZE UNDERSTANDING. PATIENT CAN VERBALIZE SIMPLE NEEDS, STILL VERY CONFUSED. ORIENTED X1. BREATHING EVEN AND UNLABORED WITH 2L NASAL CANULA. GAVE REPORT TO NURSE RAJESH INFORMED HER OF O2 NEED AND THAT PATIENT HAS ORDER TO CONTINUE IV ANTIBIOTIC, SHE SAID KEEP PICC LINE IN AND WILL BE MAINTAINED AT SNF. PER DR. WARE AND RN RECEIVING NURSE- D/C MCGUIRE CATHETER. REMOVED ID BANDS. VSS AT TIME OF D/C. PILAR CALLED AND REQUESTED TO SPEAK TO TELECOMMUNICATIONS CABLE JOINTER- CALL TRANSFERRED TO [facility]. PHOTO OF WOUNDS TAKEN AND PLACED IN CHART. UNKNOWN PNA VACCINE STATUS AND RN AT [facility] COULD NOT PROVIDE INFORMATION- NOT ADMINISTERED. FLU VACCINE OUT OF [facility]AS[facility]. LEFT IN STABLE CONDITION
== END 2017-05-25 16:40 | DRG 981 ==
LOC: ER 20:41 → TELE1 21:35 → MEDSG1 05-18 12:59
PROVIDERS: ADMIT Internal Medicine; ATTEND Internal Medicine
PROC: 30233N1 Transfusion of Nonautologous Red Blood Cells into Peripheral Vein, Percutaneous Approach (ICD-10-PCS; 2017-05-16)
PROC: 02HV33Z Insertion of Infusion Device into Superior Vena Cava, Percutaneous Approach (ICD-10-PCS; 2017-05-17)
PROC: 0KBP0ZZ Excision of Left Hip Muscle, Open Approach (ICD-10-PCS; principal; 2017-05-20)
PROC: 0KBN0ZZ Excision of Right Hip Muscle, Open Approach (ICD-10-PCS; 2017-05-20)
PROC: 0DB58ZX Excision of Esophagus, Via Natural or Artificial Opening Endoscopic, Diagnostic (ICD-10-PCS; 2017-05-22)
PROC: 0DB68ZX Excision of Stomach, Via Natural or Artificial Opening Endoscopic, Diagnostic (ICD-10-PCS; 2017-05-22)
DX: J69.0 Pneumonitis due to inhalation of food and vomit (principal); I21.4 Non-ST elevation (NSTEMI) myocardial infarction; N17.0 Acute kidney failure with tubular necrosis; J96.01 Acute respiratory failure with hypoxia; E43 Unspecified severe protein-calorie malnutrition; G92 Toxic encephalopathy; L89.154 Pressure ulcer of sacral region, stage 4; I50.33 Acute on chronic diastolic (congestive) heart failure; E86.0 Dehydration; E87.0 Hyperosmolality and hypernatremia; I13.0 Hypertensive heart and chronic kidney disease with heart failure and stage 1 through stage 4 chronic kidney disease, or unspecified chronic kidney disease; E87.2 Acidosis; N39.0 Urinary tract infection, site not specified; D62 Acute posthemorrhagic anemia; D63.8 Anemia in other chronic diseases classified elsewhere; Z95.1 Presence of aortocoronary bypass graft; Z95.810 Presence of automatic (implantable) cardiac defibrillator; Z87.891 Personal history of nicotine dependence; Z87.01 Personal history of pneumonia (recurrent); Z86.73 Personal history of transient ischemic attack (TIA), and cerebral infarction without residual deficits; Z86.14 Personal history of Methicillin resistant Staphylococcus aureus infection; Z83.3 Family history of diabetes mellitus; Z82.49 Family history of ischemic heart disease and other diseases of the circulatory system; Z82.3 Family history of stroke; Z79.899 Other long term (current) drug therapy; Z79.82 Long term (current) use of aspirin; Z79.01 Long term (current) use of anticoagulants; Z88.8 Allergy status to other drugs, medicaments and biological substances; R26.81 Unsteadiness on feet; D50.9 Iron deficiency anemia, unspecified; E78.5 Hyperlipidemia, unspecified; E87.6 Hypokalemia; F41.9 Anxiety disorder, unspecified; Z98.890 Other specified postprocedural states; E11.22 Type 2 diabetes mellitus with diabetic chronic kidney disease; I27.2 Other secondary pulmonary hypertension; I25.10 Atherosclerotic heart disease of native coronary artery without angina pectoris; J44.9 Chronic obstructive pulmonary disease, unspecified; N18.9 Chronic kidney disease, unspecified; I11.0 Hypertensive heart disease with heart failure; R13.10 Dysphagia, unspecified; I72.4 Aneurysm of artery of lower extremity; L53.9 Erythematous condition, unspecified; S90.222A Contusion of left lesser toe(s) with damage to nail, initial encounter; X58.XXXA Exposure to other specified factors, initial encounter; Y92.009 Unspecified place in unspecified non-institutional (private) residence as the place of occurrence of the external cause; B96.5 Pseudomonas (aeruginosa) (mallei) (pseudomallei) as the cause of diseases classified elsewhere; I25.2 Old myocardial infarction; I35.0 Nonrheumatic aortic (valve) stenosis; I35.1 Nonrheumatic aortic (valve) insufficiency; Z86.718 Personal history of other venous thrombosis and embolism; K29.70 Gastritis, unspecified, without bleeding; K44.9 Diaphragmatic hernia without obstruction or gangrene; F06.30 Mood disorder due to known physiological condition, unspecified
CPT/HCPCS: 36415; 70450-TC; 71010-TC; 74230-TC; 80048-TC; 80053-TC; 80061-TC; 80076-TC; 80202-TC; 81000-TC; 82728-TC; 83540-TC; 83605-TC; 83735-TC; 83880; 84100-TC; 84443-TC; 84484-TC; 85025-TC; 85027-TC; 85730-TC; 86850-TC; 86921-TC; 87040-TC; 87081-TC; 87086-TC; 87186-TC; 88305-TC; 88313-TC; 88342; 92526; 92611-TC; 93971-TC; 94799-TC; 97110-TC; 97530-TC; A4606; A6248; A6253; A6402; C9113; J0692; J0696; J0885; J1940; J2543; J2704; J3370; J3480; J3490; J7030; J7050; J7060; J7070; P9016-BL; Z7610